=== PATIENT | female | born 1955 ===

== ENCOUNTER 2020-11-12 12:48 | Inpatient (IN) | payer MEDICAID, SELFPAY ==
[2020-11-12] VITALS (7 sets, daily range): BP systolic 117–155; BP diastolic 48–84; PULSE 72–108; RESP 17–20; TEMP 36.6–37.2; O2SAT 94–100; BMI 64.5
--- NOTE | 2020-11-12 16:06 | XR_ITS ---
EXAMINATION: XR CHEST CLINICAL INFORMATION: Cough COMPARISON: CT scan of January 20, 2018 TECHNIQUE: AP portable view of the chest was obtained. FINDINGS: No significant abnormality is noted involving the heart, lungs, mediastinum, bony thorax or soft tissues. XR/XR chest 1V IMPRESSION: No acute disease.
--- NOTE | 2020-11-12 16:36 | ECG_ITS ---
Test Reason : FLU LIKE SYMPTOMS Blood Pressure : / mmHG Vent. Rate : 066 BPM Atrial Rate : 066 BPM P-R Int : 140 ms QRS Dur : 080 ms QT Int : 408 ms P-R-T Axes : 057 043 041 degrees QTc Int : 427 ms Normal sinus rhythm Normal ECG No previous ECGs available Referred By: Elizabeth Maynard Electronically Signed By:Cosme Brown
--- NOTE | 2020-11-12 16:49 | ED_ITS ---
HPI - URI/Sore Throat General Chief Complaint: Upper Respiratory Symptoms Stated Complaint: flu symptoms Time Seen by Provider: 11/12/20 15:48 Source: patient Mode of arrival: ambulatory History of Present Illness HPI Narrative: 65-year-old female with a past medical history of asthma non compliant with medications presenting to the ED complaining of productive cough, worsening SOB, wheezing, generalized fatigue, and chills x a few weeks worsening over the past 3 days. Reports subjective fever and chest discomfort. Denies recent travel, LE edema, history of blood cough, abdominal pain, nausea/vomiting MD elicited complaint: cough Related Data Allergies Allergy/AdvReac Type Severity Reaction Status Date / Time No Known Allergies Allergy Unverified 07/21/20 16:27 [No Known Allergies*] Review of Systems Review of Systems: Constitutional: No Weight loss, +Subj Fever, + Chills, No Night Sweats, + Fatigue, No Malaise Cardiovascular: + Chest Pain, + SOB, + Dyspnea on Exertion, No Orthopnea, No Edema, No Palpitations Respiratory: + Cough, + Sputum, + Wheezing, No Smoke Exposure, + Dyspnea Gastrointestinal: No Nausea, No Vomiting, No Diarrhea, No Constipation, No Abdominal pain Genitourinary: No irregular bleeding, No Dysuria, No Urinary Frequency, No Hematuria Musculoskeletal: No joint pain, No Myalgias, No Joint Swelling Skin: No Skin Lesions, No rash Yes all other systems are reviewed and are negative PENDING SALE TO [facility] Past Medical History Attestation statement: The following information was validated with the patient. Medical History (Updated 11/12/20 @ 20:32 by BRANDY Roblero) Patient denies significant medical history Social History Social History Advance Directives: No Advance Directives Information Provided: No Physical Exam Vital Signs: Vital Signs: Last Vital Signs Temp 99 F 11/12/20 19:41 Pulse 86 11/12/20 20:54 Resp 20 11/12/20 19:41 BP 144/73 H 11/12/20 19:41 Pulse Ox 98 11/12/20 19:41 Body Mass Index 64.5 Const: General: cooperative and healthy appearing Orientation/consciousness: patient oriented x3 Limitations: no limitations HENMT: Head: Yes normal to inspection Ears: hearing grossly normal bilaterally General nose exam: Normal external nose present Face and sinus: Yes normal facial exam Eyes: General: appearance normal, both eyes and all related structures EOM: EOMs intact bilaterally Neck: Neck: Yes normal visual inspection Resp: Effort & Inspection: normal respiratory effort Auscultation: wheezes expiratory wheezes, inspiratory wheezes and throughout Cardio: Rate: regular rate Heart sounds: S1 normal heart sound present and S2 normal heart sound present GI: Inspection: Yes normal to inspection Palpation (GI): Soft to palpation, nontender, no guarding and not rigid Skin: Rashes: no rashes Wounds: no wounds Neuro: General: patient oriented x3 Gait exam (Neuro): Normal gait present Extrem: Other: No LE edema or calf tenderness General: Yes normal to inspection Course Course Course Narrative: * No leukocytosis * Chest x-ray unremarkable * 2030-labs otherwise unremarkable, troponin negative. COVID-19/influenza/RSV negative. On re-evaluation patient is still with diffuse inspir atory/expiratory wheezing. Hourlong albuterol treatment ordered. Plan for admission for further management MDM - URI/Sore Throat MDM Narrative Medical decision making narrative: 65-year-old female with a past medical history of asthma non compliant with medications presenting to the ED complaining of productive cough, worsening SOB, wheezing, generalized fatigue, and chills x a few weeks worsening over the past 3 days. On exam VSS, nontoxic appearing, diffuse inspiratory and expiratory wheezes throughout, no LE edema or calf tenderness. Concern for asthma exacerbation vs viral syndrome/COVID-19 vs pneumonia. Lower concern for CHF/ACS or PE Plan: EKG, labs, CXR, DuoNeb, Decadron, magnesium, re-evaluate Lab Data Result diagrams: 11/12/20 19:33 11/12/20 19:33 Labs: Lab Results 11/12/20 11/12/20 11/12/20 Range/Units 19:33 19:33 19:33 WBC 10.5 (4.8-10.8) X10*3/uL RBC 4.03 L (4.20-5.50) X10*6/uL Hgb 12.1 (12.0-16.0) g/dl Hct 36.2 L (37-47) % MCV 89.8 (80-98) fL MCH 30.0 (27.0-33.0) pg MCHC 33.4 (31.0-35.0) g/dl RDW 11.9 (11.0-16.0) % Plt Count 391 (160-400) X10*3/uL MPV 10.6 (9.4-12.3) fL Immature Gran % (Auto) 0.3 (0.0-0.4) % Neut % (Auto) 48.2 (45-73) % Lymph % (Auto) 39.8 (20-40) % [place] % (Auto) 7.8 (2-11) % Eos % (Auto) 3.3 (0-4) % Baso % (Auto) 0.6 (0-2) % Lymph # (Auto) 4.2 (1.2-4.9) X10*3/uL [place] # (Auto) 0.8 (0.1-1.2) X10*3/uL Eos # (Auto) 0.3 (0.0-0.4) X10*3/uL Baso # (Auto) 0.1 (0.0-0.2) X10*3/uL Abs Immat Gran (auto) 0.03 (0.00-0.03) X10*3/uL Absolute Neuts (auto) 5.1 (2.0-8.3) X10*3/uL Absolute Nucleated RBC 0.000 (0.0-0.012) X10*3/uL Nucleated RBC % (auto) 0.0 (0.0-0.2) /100WBC Hold Blue Top Sodium 144 (135-145) mmol/L Potassium 4.2 (3.3-5.1) mmol/l Chloride 108 (96-108) mmol/L Carbon Dioxide 24 (22-29) mmol/L Anion Gap 16 (12-20) BUN 19 H (9-16) mg/dL Creatinine 0.79 (0.5-1.4) mg/dL Estim Creat Clear Calc 106.8 Estimated GFR > 60 Random Glucose 114 (60-115) mg/dL Calcium 9.2 (8.4-10.2) mg/dL Magnesium 2.1 (1.6-2.6) mg/dL Total Bilirubin < 0.2 (0.0-1.0) mg/dL Direct Bilirubin < 0.2 (0.0-0.5) mg/dL AST 19 (5-31) U/L ALT 12 (0-31) U/L Alkaline Phosphatase 61 (39-117) U/L Troponin I High Sens < 3.5 (<3.5-17.0) ng/L B-Natriuretic Peptide (<100) pg/mL Total Protein 7.3 (6.5-8.0) g/dL Albumin 4.2 (3.5-5.0) g/dL Coronavirus (PCR) (Negative) Influenza Type A (PCR) (Negative) Influenza Type B (PCR) (Negative) RSV RNA Qual (PCR) (Negative) 11/12/20 11/12/20 11/12/20 Range/Units 19:33 19:33 19:35 WBC (4.8-10.8) X10*3/uL RBC (4.20-5.50) X10*6/uL Hgb (12.0-16.0) g/dl Hct (37-47) % MCV (80-98) fL MCH (27.0-33.0) pg MCHC (31.0-35.0) g/dl RDW (11.0-16.0) % Plt Count (160-400) X10*3/uL MPV (9.4-12.3) fL Immature Gran % (Auto) (0.0-0.4) % Neut % (Auto) (45-73) % Lymph % (Auto) (20-40) % [place] % (Auto) (2-11) % Eos % (Auto) (0-4) % Baso % (Auto) (0-2) % Lymph # (Auto) (1.2-4.9) X10*3/uL [place] # (Auto) (0.1-1.2) X10*3/uL Eos # (Auto) (0.0-0.4) X10*3/uL Baso # (Auto) (0.0-0.2) X10*3/uL Abs Immat Gran (auto) (0.00-0.03) X10*3/uL Absolute Neuts (auto) (2.0-8.3) X10*3/uL Absolute Nucleated RBC (0.0-0.012) X10*3/uL Nucleated RBC % (auto) (0.0-0.2) /100WBC Hold Blue Top SEE NOTE Sodium (135-145) mmol/L Potassium (3.3-5.1) mmol/l Chloride (96-108) mmol/L Carbon Dioxide (22-29) mmol/L Anion Gap (12-20) BUN (9-16) mg/dL Creatinine (0.5-1.4) mg/dL Estim Creat Clear Calc Estimated GFR Random Glucose (60-115) mg/dL Calcium (8.4-10.2) mg/dL Magnesium (1.6-2.6) mg/dL Total Bilirubin (0.0-1.0) mg/dL Direct Bilirubin (0.0-0.5) mg/dL AST (5-31) U/L ALT (0-31) U/L Alkaline Phosphatase (39-117) U/L Troponin I High Sens (<3.5-17.0) ng/L B-Natriuretic Peptide 43 (<100) pg/mL Total Protein (6.5-8.0) g/dL Albumin (3.5-5.0) g/dL Coronavirus (PCR) NEGATIVE (Negative) Influenza Type A (PCR) NEGATIVE (Negative) Influenza Type B (PCR) NEGATIVE (Negative) RSV RNA Qual (PCR) NEGATIVE (Negative) Discharge Plan Discharge Clinical Impression: Asthma Qualifiers: Asthma severity: unspecified severity Asthma persistence: unspecified Asthma complication type: unspecified Qualified Code(s): J45.909 - Unspecified asthma, uncomplicated Patient Disposition: Admitted As Inpatient
[2020-11-12] MEDS: dexAMETHasone sod phosphate 4 MG/ML VIAL 6 MG IVPUSH (19:38)
[2020-11-12] MEDS: Magnesium Sulfate/H2O 2 GM/50 ML PIGGYBACK IV (19:38)
[2020-11-12 19:42] LABS: MANUAL DIFF FLAG NO
[2020-11-12 19:44] LABS: Basophils Absolute Auto 0.1 X10*3/uL (0.0-0.2); Basophils Percent Auto 0.6 % (0-2); Eosinophils Absolute Auto 0.3 X10*3/uL (0.0-0.4); Eosinophils Percent Auto 3.3 % (0-4); Hematocrit 36.2 % (37-47); Hemoglobin 12.1 g/dl (12.0-16.0); Imm Gran Abs Auto 0.03 X10*3/uL (0.00-0.03); Imm Gran Pct Auto 0.3 % (0.0-0.4); Lymphocytes Absolute Auto 4.2 X10*3/uL (1.2-4.9); Lymphocytes Percent Auto 39.8 % (20-40); Mean Corpuscular HGB Conc 33.4 g/dl (31.0-35.0); Mean Corpuscular Volume 89.8 fL (80-98); Mean Platelet Volume 10.6 fL (9.4-12.3); Monocytes Absolute Auto 0.8 X10*3/uL (0.1-1.2); Monocytes Percent Auto 7.8 % (2-11); Neutrophils Absolute Auto 5.1 X10*3/uL (2.0-8.3); Neutrophils Percent Auto 48.2 % (45-73); Platelet Count 391 X10*3/uL (160-400); Red Blood Count 4.03 X10*6/uL (4.20-5.50); Red Cell Distribution Width 11.9 % (11.0-16.0); White Blood Count 10.5 X10*3/uL (4.8-10.8)
[2020-11-12] MEDS: Albuterol/Iprat 2.5/0.5MG 3 ML AMPUL.NEB INHALE ×2 (19:48→20:54)
[2020-11-12 20:10] LABS: Alanine Aminotransferase 12 U/L (0-31); Albumin Level 4.2 g/dL (3.5-5.0); Alkaline Phosphatase 61 U/L (39-117); Anion Gap 16 (12-20); Aspartate Amino Transferase 19 U/L (5-31); Bilirubin Direct < 0.2 mg/dL (0.0-0.5); Bilirubin Total < 0.2 mg/dL (0.0-1.0); Blood Urea Nitrogen 19 mg/dL (9-16); Calcium 9.2 mg/dL (8.4-10.2); Carbon Dioxide 24 mmol/L (22-29); Chloride 108 mmol/L (96-108); Creatinine Clr Calc Pharmacy 106.8; Estimated Glomerular Filt Rate > 60; Glucose Random 114 mg/dL (60-115); Magnesium 2.1 mg/dL (1.6-2.6); Potassium 4.2 mmol/l (3.3-5.1); Sodium 144 mmol/L (135-145); Total Protein 7.3 g/dL (6.5-8.0)
[2020-11-12 20:11] LABS: B Type Natriuretic Peptide 43 pg/mL (<100)
[2020-11-12 20:22] LABS: Influenza A PCR NEGATIVE (Negative); Influenza B PCR NEGATIVE (Negative); Resp Syncy Virus RNA Qual PCR NEGATIVE (Negative); SARS COV2 PCR INHOUSE NEGATIVE (Negative)
[2020-11-12 20:29] LABS: Troponin-I High Sensitivity < 3.5 ng/L (<3.5-17.0)
[2020-11-12] MEDS: Albuterol Sulfate (0.083%) 2.5 MG/3 ML VIAL.NEB 10 MG INHALE (20:54)
--- NOTE | 2020-11-12 21:29 | PC.NURSE ---
UNABLE TO OBTAIN MEDICATION HX ATT, PT'S PHARMACY IS CLOSED, NO ELECTRONIC RECENT MED REC, PT HAS LIST AT HOME BUT LIVES ALONE.
--- NOTE | 2020-11-12 21:34 | PM.IMHP ---
History of Present Illness Date of Service: 11/12/20 Chief Complaint: SOB This is a 65-year-old female with past medical history of COPD/asthma, HLD, chronic sinusitis, who presents to the hospital with complaints of shortness of breath, worsen congestion and wheezing. Patient reports the for the past 3 days she has been progressively more short of breath, she does not use inhalers regularly and run out. She denies any fever but has chills. She has no sputum production. She has chronic generalized abdominal pain, some nausea, no vomiting. She denies any constipation at this time but sometimes has diarrhea. Has midsternal chest pain that is worse with coughing. She denies any pressure, nonradiating of the chest pain. No lower extremity edema. No urinary symptoms. On arrival to the ED, pt HDS sating 98% on RA Labs on arrival show BC 10.5, Hgb 12.1, Na of 144, K+ 4.2, RVP including COVID negative CXR negative for acute disease Pt received mag, solumedrol and breathing treatments but remains wheezy and dyspneic and therefore will be admitted for further management Review of Systems Review of Systems: Yes all other systems are reviewed and are negative [facility] Medical History (Updated 11/12/20 @ 22:42 by Monica Garber MD) Chronic sinusitis HLD (hyperlipidemia) Patient denies significant medical history Social History Advance Directives: No Advance Directives Information Provided: No Meds Allergies Allergy/AdvReac Type Severity Reaction Status Date / Time No Known Allergies Allergy Unverified 07/21/20 16:27 [No Known Allergies*] Physical Exam Vital Signs and Narrative: Vital Signs: Last Vital Signs Temp 99 F 11/12/20 19:41 Pulse 86 11/12/20 20:54 Resp 20 11/12/20 19:41 BP 144/73 H 11/12/20 19:41 Pulse Ox 98 11/12/20 19:41 Body Mass Index 64.5 Const: General: cooperative and no acute distress Orientation/consciousness: patient oriented x3 Eyes: General: appearance normal, both eyes and all related structures Resp: Effort & Inspection: normal respiratory effort and able to speak in complete sentences Auscultation: wheezes Cardio: Rate: regular rate Rhythm: regular rhythm GI: Palpation (GI): Soft to palpation Auscultation: normal bowel sounds Skin: General skin exam: no rashes or lesions noted Neuro: General: patient oriented x3 Cognition (Neuro): normal cognition Extrem: General: Yes normal to inspection and Yes no pedal edema Results Labs CBC and Chem 7: 11/12/20 19:33 11/12/20 19:33 Labs: Laboratory Results - last 24 hr 11/12/20 11/12/20 11/12/20 19:33 19:33 19:33 MCV 89.8 MCH 30.0 MCHC 33.4 RDW 11.9 Plt Count 391 MPV 10.6 Immature Gran % (Auto) 0.3 Neut % (Auto) 48.2 Lymph % (Auto) 39.8 [place] % (Auto) 7.8 Eos % (Auto) 3.3 Baso % (Auto) 0.6 Lymph # (Auto) 4.2 [place] # (Auto) 0.8 Eos # (Auto) 0.3 Baso # (Auto) 0.1 Abs Immat Gran (auto) 0.03 Absolute Neuts (auto) 5.1 Absolute Nucleated RBC 0.000 Nucleated RBC % (auto) 0.0 Hold Blue Top Anion Gap 16 Estim Creat Clear Calc 106.8 Estimated GFR > 60 Random Glucose 114 Calcium 9.2 Magnesium 2.1 Total Bilirubin < 0.2 Direct Bilirubin < 0.2 AST 19 ALT 12 Alkaline Phosphatase 61 Troponin I High Sens < 3.5 B-Natriuretic Peptide Total Protein 7.3 Albumin 4.2 Coronavirus (PCR) Influenza Type A (PCR) Influenza Type B (PCR) RSV RNA Qual (PCR) 11/12/20 11/12/20 11/12/20 19:33 19:33 19:35 MCV MCH MCHC RDW Plt Count MPV Immature Gran % (Auto) Neut % (Auto) Lymph % (Auto) [place] % (Auto) Eos % (Auto) Baso % (Auto) Lymph # (Auto) [place] # (Auto) Eos # (Auto) Baso # (Auto) Abs Immat Gran (auto) Absolute Neuts (auto) Absolute Nucleated RBC Nucleated RBC % (auto) Hold Blue Top SEE NOTE Anion Gap Estim Creat Clear Calc Estimated GFR Random Glucose Calcium Magnesium Total Bilirubin Direct Bilirubin AST ALT Alkaline Phosphatase Troponin I High Sens B-Natriuretic Peptide 43 Total Protein Albumin Coronavirus (PCR) NEGATIVE Influenza Type A (PCR) NEGATIVE Influenza Type B (PCR) NEGATIVE RSV RNA Qual (PCR) NEGATIVE Imaging Radiologist's Impressions: Impressions Chest X-Ray 11/12/20 16:06 IMPRESSION: No acute disease. Assessment and Plan (1) Asthma exacerbation: Qualifiers: Asthma severity: mild Asthma persistence: intermittent Qualified Code(s): J45.21 - Mild intermittent asthma with (acute) exacerbation Status: Acute (2) Chronic sinusitis: Qualifiers: Sinusitis location: unspecified location Qualified Code(s): J32.9 - Chronic sinusitis, unspecified Status: Acute This is a 65-year-old female with past medical history of asthma COPD who presents to the hospital with complaints of shortness of breath, increased wheezing, and cough. # asthma exacerbation - received Mag, 1 hour breathing treatment, Solu-Medrol, with no relief of her symptoms - has no hypoxia, afebrile, no leukocytosis, chest x-ray negative, COVID-19 negative Plan: - will start her on Solu-Medrol 40 IV b.i.d., DuoNeb p.r.n./scheduled q.i.d., - patient is also long-term smoker will start her on azithromycin for possible underlying COPD - monitor respiratory status # chronic sinusitis - reports increased congestion - will start her on Flonase nasal spray DVT prophylaxis: Lovenox
[2020-11-12] MEDS: Enoxaparin Sodium 40 MG/0.4 ML SYRINGE SUBCUT (23:16)
[2020-11-12] MEDS: Azithromycin 500 MG TABLET PO (23:16)
[2020-11-13] VITALS (7 sets, daily range): BP systolic 114–138; BP diastolic 66–70; PULSE 99–105; RESP 16–20; O2SAT 94–97
[2020-11-13] MEDS: 0.9 % Sodium Chloride Flush 3 ML SYRINGE IVFLUSH ×3 (00:12→17:19)
[2020-11-13 05:06] LABS: Basophils Percent Auto 0.1 % (0-2); Hematocrit 34.3 % (37-47); Hemoglobin 11.3 g/dl (12.0-16.0); Imm Gran Abs Auto 0.05 X10*3/uL (0.00-0.03); Imm Gran Pct Auto 0.4 % (0.0-0.4); Lymphocytes Absolute Auto 1.1 X10*3/uL (1.2-4.9); Lymphocytes Percent Auto 7.9 % (20-40); MANUAL DIFF FLAG SCAN; Mean Corpuscular HGB Conc 32.9 g/dl (31.0-35.0); Mean Corpuscular Hemoglobin 29.9 pg (27.0-33.0); Mean Corpuscular Volume 90.7 fL (80-98); Mean Platelet Volume 10.6 fL (9.4-12.3); Monocytes Absolute Auto 0.1 X10*3/uL (0.1-1.2); Monocytes Percent Auto 0.7 % (2-11); Neutrophils Absolute Auto 12.3 X10*3/uL (2.0-8.3); Neutrophils Percent Auto 90.9 % (45-73); Platelet Count 372 X10*3/uL (160-400); Red Blood Count 3.78 X10*6/uL (4.20-5.50); Red Cell Distribution Width 11.9 % (11.0-16.0); SCAN SMEAR FLAG 1; White Blood Count 13.5 X10*3/uL (4.8-10.8)
[2020-11-13 05:13] LABS: SLIDE REVIEW VERIFIED
[2020-11-13 05:33] LABS: Anion Gap 23 (12-20); Blood Urea Nitrogen 16 mg/dL (9-16); Calcium 9.3 mg/dL (8.4-10.2); Carbon Dioxide 17 mmol/L (22-29); Chloride 108 mmol/L (96-108); Creatinine Clr Calc Pharmacy 102.9; Estimated Glomerular Filt Rate > 60; Glucose Random 201 mg/dL (60-115); Potassium 3.5 mmol/l (3.3-5.1); Sodium 144 mmol/L (135-145)
[2020-11-13] MEDS: Albuterol/Iprat 2.5/0.5MG 3 ML AMPUL.NEB INHALE ×4 (07:33→19:42)
--- NOTE | 2020-11-13 10:21 | PC.NURSE ---
pt tolerating po, amb oob with no distress, aox4 waiting on bed assignment
--- NOTE | 2020-11-13 15:13 | HO.PM.IMPN ---
Subjective Subjective Date of Service: 11/14/20 Interval History: Patient being followed for COPD/asthma exacerbation, patient feels better since admission still complaining of shortness of breath, denies fever chills no other acute issues overnight. Review of Systems General no headache no dizziness no fever chills. CVS no chest pain, no palpitation. Respiratory shortness of breath, chest tightness Gastrointestinal no nausea, no vomiting, no abdominal pain this a.m. Physical Exam Vital Signs: Vital Signs: Last Vital Signs Temp 97.9 F 11/12/20 21:37 Pulse 99 11/13/20 12:34 Resp 20 11/13/20 12:34 BP 114/66 11/13/20 12:34 Pulse Ox 94 11/13/20 12:34 Body Mass Index 64.5 Const: Other: General patient resting comfortably in no acute distress. Neck is supple no JVD. CVS regular rate rhythm, Respiratory lungs bilateral expiratory rhonchi, no respiratory distress Gastrointestinal abdomen soft, nontender, bowel sounds audible, no rigidity. Extremities no clubbing cyanosis or edema. Neuro nonfocal Skin no rash Objective Data Current Medications Generic Name Dose Route Start Last Admin Trade Name Freq PRN Reason Stop Dose Admin Acetaminophen 650 mg 11/12/20 22:34 Acetaminophen 325 Mg Tablet PO Q6H PRN Pain, Mild (Pain Scale 1-3) Albuterol/Ipratropium 3 ml 11/13/20 08:00 11/13/20 11:39 Albuterol/Iprat 2.5/0.5mg 3 Ml Ampul.Neb INHALE 3 ml RQ4H WHILE AWAKE KELY Administration Albuterol/Ipratropium 3 ml 11/12/20 22:34 Albuterol/Iprat 2.5/0.5mg 3 Ml Ampul.Neb INHALE RQ4H PRN Shortness of Breath/Wheezing Azithromycin 500 mg 11/12/20 22:34 11/12/20 23:16 Azithromycin 500 Mg Tablet PO 500 mg Q24H KELY Administration Docusate Sodium 100 mg 11/12/20 22:34 Docusate Sodium 100 Mg Capsule PO DAILY PRN Constipation Enoxaparin Sodium 40 mg 11/12/20 22:34 11/12/20 23:16 Enoxaparin Sodium 40 Mg/0.4 Ml Syringe SUBCUT 40 mg Q24H KELY Administration Methylprednisolone Sodium Succinate 40 mg 11/12/20 22:34 11/13/20 10:30 Methylprednisolone Sod Succ/Pf 40 Mg/Ml Vial IVPUSH 40 mg Q12H KELY Administration Ondansetron HCl 4 mg 11/12/20 22:34 Ondansetron Hcl 4 Mg/2 Ml Vial IVPUSH Q8H PRN Nausea and Vomiting Sodium Chloride 3 ml 11/13/20 00:00 11/13/20 09:21 0.9 % Sodium Chloride Flush 3 Ml Syringe IVFLUSH 3 ml QSHIFT KELY Administration Labs CBC & Chem 7: 11/13/20 04:52 11/14/20 06:22 Assessment and Plan (1) Asthma exacerbation: Status: Acute (2) Chronic sinusitis: Status: Acute Assessment and Plan: This is a 65-year-old female with past medical history of asthma/ COPD who presents to the hospital with complaints of shortness of breath, increased wheezing, and cough. # asthma exacerbation - shortness of breath improving since admission,s/p Mag, 1 hour breathing treatment and iv solumedrol in ER no hypoxia finger oximetry 94% on room air, no fever, no leukocytosis, chest x-ray negative, COVID-19 negative will cont. Solu-Medrol 40 IV b.i.d., DuoNeb p.r.n./scheduled q.i.d.,and iv azithromycin Patient is a former smoker stop smoking 2 years ago, will monitor respiratory status closely. Leukocytosis likely due to steroid, anion gap metabolic acidosis uncertain etiology blood sugars slightly elevated otherwise normal kidney function, repeat labs and if remains above normal will do further testing including lactic acid Patient not on nebulizer treatment at home, also says she is not using albuterol MDI. # chronic sinusitis - reports increased congestion, continue Flonase nasal spray DVT prophylaxis: Lovenox
--- NOTE | 2020-11-13 20:42 | PC.NURSE ---
per hospitalist plan to be d/c in am after reeval by day team that admitted patient. charge account authorizer aware.
[2020-11-13] MEDS: Azithromycin 500 MG TABLET PO (21:35)
[2020-11-13] MEDS: Enoxaparin Sodium 40 MG/0.4 ML SYRINGE SUBCUT (21:37)
[2020-11-14] MEDS: 0.9 % Sodium Chloride Flush 3 ML SYRINGE IVFLUSH ×2 (00:35→10:14)
[2020-11-14 06:00] VITALS: BP 135/67; PULSE 90; RESP 18; TEMP 37; O2SAT 100
[2020-11-14 07:36] LABS: Anion Gap 14 (12-20); Blood Urea Nitrogen 28 mg/dL (9-16); Calcium 9.7 mg/dL (8.4-10.2); Carbon Dioxide 23 mmol/L (22-29); Chloride 109 mmol/L (96-108); Creatinine Clr Calc Pharmacy 115.6; Estimated Glomerular Filt Rate > 60; Glucose Random 155 mg/dL (60-115); Potassium 4.7 mmol/l (3.3-5.1); Sodium 141 mmol/L (135-145)
[2020-11-14 07:59] VITALS: BP 136/80; PULSE 84; RESP 18; O2SAT 98
[2020-11-14] MEDS: Albuterol/Iprat 2.5/0.5MG 3 ML AMPUL.NEB INHALE (08:19)
[2020-11-14 08:20] VITALS: PULSE 88; O2SAT 95
--- NOTE | 2020-11-14 12:46 | MHC.CM.PN ---
Met with patient and draw tender in regards to discharge planning. Patient lives alone, ambulates with a cane and has a SHIP ERECTOR. Patient does not know the name of the agency for her SHIP ERECTOR but knows its not [facility]. PCP verified as Dr Farah at [facility]. Patient is requesting referral to [facility] to help with her medication management. Dr Hutchison aware and agreeable. Patient's daughter will transport her home. Continue to monitor for d/c needs.
--- NOTE | 2020-11-14 13:13 | P.F2F_ITS ---
Service Date Service Date: 11/14/20 Encounter Date of encounter: 11/14/20 Reasons for Services Signs and symptoms assessed: Shortness of breath/dyspnea on exertion new to the updraft treatment Reason for nursing home: medication management Homebound: Leaving the home is medically contraindicated at this time without the asist of a device and/or another person due th the listed conditions above and below. Reason homebound: shortness of breath with minimal effort and weakness related to hospital stay Certification: Based on the above findings, I certify that this patient is confined to the home and needs intermittent nursing home care, physical therapy and/or speech therapy, or continues to need occupational therapy. The patient is under my care, and I have initiated the establishment of the plan of care. The patient will be followed by a physician who will periodically review the plan of care.
--- NOTE | 2020-11-14 14:18 | P.DS_ITS ---
DS: Providers Provider Date of Service: 11/14/20 Date of admission: 11/12/20 21:11 Primary care physician: Unknown Physician DS: Diagnosis Discharge Diagnosis (1) Asthma exacerbation: Status: Acute (2) Chronic sinusitis: Status: Acute DS: Medications Discharge Medications Home Medications: Home Medications Medication Instructions Recorded Confirmed clonazepam 0.5 mg PO DAILY 11/14/20 11/14/20 eszopiclone 3 mg PO BEDTIME 11/14/20 11/14/20 melatonin 5 mg PO BEDTIME 11/14/20 11/14/20 olanzapine 15 mg PO BEDTIME 11/14/20 11/14/20 Previous Rx's Medication Instructions Recorded albuterol sulfate 2 inh INHALATION Q4-6H PRN #1 ea 11/14/20 azithromycin 500 mg PO Q24H #3 tab 11/14/20 fluticasone furoate-vilanterol 1 inh INHALATION DAILY #1 ea 11/14/20 [Breo Ellipta] prednisone 20 mg PO DAILY #5 tab 11/14/20 DS: Summary Hospital Course Hospital Course: History of presenting illness 65-year-old female with past medical history of COPD/asthma, HLD, chronic sinusitis, who presents to the hospital with complaints of shortness of breath, worsen congestion and wheezing. Patient reports the for the past 3 days she has been progressively more short of breath, she does not use inhalers regularly and run out. She denies any fever but has chills. She has no sputum production. She has chronic generalized abdominal pain, some nausea, no vomiting. She denies any constipation at this time but sometimes has diarrhea. Has midsternal chest pain that is worse with coughing. She denies any pressure, nonradiating of the chest pain. No lower extremity edema. No urinary symptoms. On arrival to the ED, pt HDS sating 98% on RA Labs on arrival show BC 10.5, Hgb 12.1, Na of 144, K+ 4.2, RVP including COVID negative CXR negative for acute disease Hospital course 65-year-old female with past medical history of asthma/ COPD who presents to the hospital with complaints of shortness of breath, increased wheezing, and cough. # asthma /COPD overlap syndrome with exacerbation Patient's symptoms of shortness of breath wheeze and nasal congestion imp roved patient was treated with IV steroids schedule updraft treatment her oxygenation remains stable 94% on room air patient had no fevers, no leukocytosis chest x-ray was negative as well as COVID-19 was negative since patient is doing significantly better she is being discharged home on 5 more days of by mouth prednisone 20 mg daily, Breo, azithromycin for 3 more days and albuterol MDI if patient does not respond to above treatment than nebulizer can be arranged by primary care physician # nasal congestion question chronic sinusitis Advised to use nasal saline and steam inhalation and if not better consider Flonase spray Time Spent with Patient Time attestation: Total time spent providing and/or coordinating discharge services: Discharge coordination time: Greater than 30 minutes Physical Exam Vital Signs: Vital Signs: Last Vital Signs Temp 98.6 F 11/14/20 06:00 Pulse 88 11/14/20 08:20 Resp 18 11/14/20 07:59 BP 136/80 11/14/20 07:59 Pulse Ox 98 11/14/20 07:59 Body Mass Index 64.5 General patient resting comfortably in no acute distress. Face no facial tenderness on maxillary sinus, no swelling Neck is supple no JVD. CVS regular rate rhythm, Respiratory few expiratory rhonchi, good air movement, no respiratory distress Gastrointestinal abdomen soft, nontender, bowel sounds audible, no rigidity. Extremities no clubbing cyanosis or edema. Neuro nonfocal Skin no rash DS: Data Data Completed and Pending Labs on day of discharge: Laboratory Tests 11/12/20 11/12/20 11/12/20 19:33 19:33 19:33 WBC 10.5 RBC 4.03 L Hgb 12.1 Hct 36.2 L MCV 89.8 MCH 30.0 MCHC 33.4 RDW 11.9 Plt Count 391 MPV 10.6 Immature Gran % (Auto) 0.3 Neut % (Auto) 48.2 Lymph % (Auto) 39.8 [place] % (Auto) 7.8 Eos % (Auto) 3.3 Baso % (Auto) 0.6 Lymph # (Auto) 4.2 [place] # (Auto) 0.8 Eos # (Auto) 0.3 Baso # (Auto) 0.1 Abs Immat Gran (auto) 0.03 Absolute Neuts (auto) 5.1 Absolute Nucleated RBC 0.000 Nucleated RBC % (auto) 0.0 Smear Tech's Comments Hold Blue Top Sodium 144 Potassium 4.2 Chloride 108 Carbon Dioxide 24 Anion Gap 16 BUN 19 H Creatinine 0.79 Estim Creat Clear Calc 106.8 Estimated GFR > 60 Random Glucose 114 Calcium 9.2 Magnesium 2.1 Total Bilirubin < 0.2 Direct Bilirubin < 0.2 AST 19 ALT 12 Alkaline Phosphatase 61 Troponin I High Sens < 3.5 B-Natriuretic Peptide Total Protein 7.3 Albumin 4.2 Coronavirus (PCR) Influenza Type A (PCR) Influenza Type B (PCR) RSV RNA Qual (PCR) 11/12/20 11/12/20 11/12/20 19:33 19:33 19:35 WBC RBC Hgb Hct MCV MCH MCHC RDW Plt Count MPV Immature Gran % (Auto) Neut % (Auto) Lymph % (Auto) [place] % (Auto) Eos % (Auto) Baso % (Auto) Lymph # (Auto) [place] # (Auto) Eos # (Auto) Baso # (Auto) Abs Immat Gran (auto) Absolute Neuts (auto) Absolute Nucleated RBC Nucleated RBC % (auto) Smear Tech's Comments Hold Blue Top SEE NOTE Sodium Potassium Chloride Carbon Dioxide Anion Gap BUN Creatinine Estim Creat Clear Calc Estimated GFR Random Glucose Calcium Magnesium Total Bilirubin Direct Bilirubin AST ALT Alkaline Phosphatase Troponin I High Sens B-Natriuretic Peptide 43 Total Protein Albumin Coronavirus (PCR) NEGATIVE Influenza Type A (PCR) NEGATIVE Influenza Type B (PCR) NEGATIVE RSV RNA Qual (PCR) NEGATIVE 11/13/20 11/13/20 11/14/20 04:52 04:52 06:22 WBC 13.5 H RBC 3.78 L Hgb 11.3 L Hct 34.3 L MCV 90.7 MCH 29.9 MCHC 32.9 RDW 11.9 Plt Count 372 MPV 10.6 Immature Gran % (Auto) 0.4 Neut % (Auto) 90.9 H Lymph % (Auto) 7.9 L [place] % (Auto) 0.7 L Eos % (Auto) 0.0 Baso % (Auto) 0.1 Lymph # (Auto) 1.1 L [place] # (Auto) 0.1 Eos # (Auto) 0.0 Baso # (Auto) 0.0 Abs Immat Gran (auto) 0.05 H Absolute Neuts (auto) 12.3 H Absolute Nucleated RBC 0.000 Nucleated RBC % (auto) 0.0 Smear Tech's Comments VERIFIED Hold Blue Top Sodium 144 141 Potassium 3.5 4.7 D Chloride 108 109 H Carbon Dioxide 17 L 23 Anion Gap 23 H 14 BUN 16 28 H D Creatinine 0.82 0.73 Estim Creat Clear Calc 102.9 115.6 Estimated GFR > 60 > 60 Random Glucose 201 H D 155 H Calcium 9.3 9.7 Magnesium Total Bilirubin Direct Bilirubin AST ALT Alkaline Phosphatase Troponin I High Sens B-Natriuretic Peptide Total Protein Albumin Coronavirus (PCR) Influenza Type A (PCR) Influenza Type B (PCR) RSV RNA Qual (PCR) Discharge Plan Discharge Patient Disposition: Home, Self-Care Referrals: [facility] [Outside] Tori Farah MD [Physician] - Discharge Medications: New azithromycin 500 mg Tablet 500 mg PO Q24H Qty: 3 RF: 0 Breo Ellipta 100-25 mcg/dose blister with device 1 inh inhalation DAILY Qty: 1 RF: 0 prednisone 20 mg tablet 20 mg PO DAILY Qty: 5 RF: 0 albuterol sulfate 90 mcg/actuation aerosol powdr breath activated 2 inh inhalation Q4-6H PRN (Reason: shortness of breath) Qty: 1 RF: 0 Continued clonazepam 0.5 mg Tablet 0.5 mg PO DAILY RF: 0 olanzapine 15 mg Tablet 15 mg PO BEDTIME RF: 0 eszopiclone 3 mg Tablet 3 mg PO BEDTIME RF: 0 melatonin 5 mg Tablet 5 mg PO BEDTIME RF: 0 Discontinued ibuprofen 600 mg Tablet 600 mg PO TID RF: 0 Discharge Orders: Discharge Order (Routine); Ordered 11/14/20 Ordered By: Martin Hutchison Diet: regular diet Activity on Discharge: As tolerated Visit Report Forms: Patient Portal Discharge page Care Plan Goals: Avoid secondhand smoke /take all medications as prescribed Health Concerns: COPD Plan of Treatment: Outpatient follow-up with primary care physician
== END 2020-11-14 16:51 | disposition home or self-care (01) | DRG 140 ==
LOC: HO.ED 21:07 → HO.S3 11-14 09:00
PROVIDERS: Hospitalist; Physician Assistant; Admitting Provider Internal Medicine; Emergency Provider Emergency Medicine; PCP Internal Medicine; Visit Provider Internal Medicine
DX: J44.1 Chronic obstructive pulmonary disease with (acute) exacerbation (principal); J45.21 Mild intermittent asthma with (acute) exacerbation; E78.5 Hyperlipidemia, unspecified; J32.9 Chronic sinusitis, unspecified; Z91.14 Patient's other noncompliance with medication regimen; Z87.891 Personal history of nicotine dependence; Z20.828 Contact with and (suspected) exposure to other viral communicable diseases; Z79.51 Long term (current) use of inhaled steroids; Z79.899 Other long term (current) drug therapy
CPT/HCPCS: 0241U; 36415; 71045; 80048; 80076; 83735; 83880; 84484; 85025; 93005; 94640; 94644; 96365; 96366; 96375; 99285; J1100; J1650; J2920; J3475

== ENCOUNTER → 2021-07-05 10:21 | Outpatient (BNVA) | payer MEDICARE, MEDICAID, SELFPAY | PROVIDERS: PCP Internal Medicine; Visit Provider Internal Medicine Pulmonary Disease | DX: J44.9 Chronic obstructive pulmonary disease, unspecified (principal); R91.8 Other nonspecific abnormal finding of lung field | CPT/HCPCS: 99202 ==

== ENCOUNTER 2021-07-19 09:13 | Outpatient (REF) | payer MEDICARE, MEDICAID, SELFPAY ==
--- NOTE | ~2021-07-19 | CT_ITS ---
EXAMINATION: CT CHEST WITHOUT CONTRAST CLINICAL INFORMATION: Pulmonary nodules. COMPARISON: Chest x-ray 11/12/[address] chest without contrast 01/20/2018. TECHNIQUE: Multidetector volumetric CT imaging of the chest was done. Axial MIP volume rendering provided. Sagittal and coronal reformatted images were obtained. This CT examination was performed using dose optimization techniques as appropriate, variously including the following: *Automated exposure control *Adjustment of mA and/or kV according to patient size (this includes techniques or standardized protocols for targeted exams where dose is matched to indication/reason for exam; i.e. extremities or head) *Use of iterative reconstruction technique DLP: 161 mGy-cm FINDINGS: DATA PROCESSING CONSULTANT: The lungs are well-expanded and clear. LUNGS: The lungs are well-expanded and clear of acute process. There is a 3 mm nodule left upper lobe axial image /. This appears to be a new nodule. Previously seen left upper lobe nodule at the level of hilum is not visualized unless they are the same nodules but have changed position due to breathing. No additional nodules seen. Focal atelectatic changes are seen in the right middle lobe, lingula and anterior basal segment of right lower lobe. MEDIASTINUM: The thyroid lobes are asymmetrical but normal size. The central trachea and the bronchi are widely patent. The heart size and the great vessels are normal caliber. There are coronary artery calcifications. No pericardial effusion seen. No abnormal size mediastinal or hilar lymph nodes seen. PLEURA: There is no pleural effusion. No pleural mass or thickening. AXILLA: No abnormal axillary lymph nodes seen. UPPER ABDOMEN: Visualized liver, spleen, pancreas and bilateral adrenal glands are unremarkable. OSSEOUS STRUCTURES: No lytic or sclerotic process seen. Minimal ventral spondylosis mid and lower dorsal spine. CT/CT chest wo con IMPRESSION: Left upper lobe 3 mm nodule slightly at different level which could be secondary to different breathing pattern. No additional nodules. No acute process. Focal atelectatic changes as described above.
--- NOTE | 2021-07-19 11:06 | PFT_ITS ---
FLOWS: FEV1 of 79% of predicted at 1.63 L. FVC 77% of predicted at 2.08 L. FEV1 to FVC ratio of 0.78. No bronchodilator response. LUNG VOLUMES: Total lung capacity 90% at 4.04 L. Residual volume 104% at 1.97 L. Slow vital capacity 81% at 2.08 L. Expiratory reserve volume 13% at 0.09 L. Diffusion capacity is mildly decreased, diffusion capacity adjust to normal after correction for alveolar ventilation. In comparison to pulmonary function test form August of 2017, FEV1 has decreased by 0.29 L; FVC has decreased by 0.28 L; total lung capacity has increased by 0.30 L; residual volume, slow vital capacity, and expiratory reserve volume have been without significant changes; diffusion capacity has decreased by 3.13 mL/minute per mmHg. IMPRESSION: No obstructive or restrictive ventilatory defect. No bronchodilator response. Decreased expiratory reserve volume suggests extrathoracic restriction likely secondary to abdominal obesity. MD SUZAN Tabor/MODL / [id number]
== END 2021-07-19 09:14 | disposition home or self-care (01) ==
LOC: HO.CT 09:13
PROVIDERS: Visit Provider Internal Medicine Pulmonary Disease
DX: R91.8 Other nonspecific abnormal finding of lung field (principal); J44.9 Chronic obstructive pulmonary disease, unspecified
CPT/HCPCS: 71250; 94060; 94727; 94729

== ENCOUNTER → 2021-08-11 09:51 | Outpatient (BNVA) | payer MEDICARE, MEDICAID, SELFPAY | PROVIDERS: Visit Provider Internal Medicine Pulmonary Disease | DX: J44.9 Chronic obstructive pulmonary disease, unspecified (principal); R91.8 Other nonspecific abnormal finding of lung field | CPT/HCPCS: 99212 ==

== ENCOUNTER → 2021-09-14 10:20 | Outpatient (BNVA) | payer MEDICARE, MEDICAID, SELFPAY | PROVIDERS: PCP Internal Medicine; Visit Provider Internal Medicine Pulmonary Disease | DX: J44.9 Chronic obstructive pulmonary disease, unspecified (principal); R91.8 Other nonspecific abnormal finding of lung field | CPT/HCPCS: 99212 ==

== ENCOUNTER → 2021-10-19 13:22 | Outpatient (BNVA) | payer MEDICARE, MEDICAID, SELFPAY | PROVIDERS: PCP Internal Medicine; Visit Provider Internal Medicine Pulmonary Disease | DX: J44.9 Chronic obstructive pulmonary disease, unspecified (principal); R91.8 Other nonspecific abnormal finding of lung field | CPT/HCPCS: 99212 ==

== ENCOUNTER 2021-10-23 09:28 | Outpatient (REF) | payer MEDICARE, MEDICAID, SELFPAY ==
--- NOTE | ~2021-10-23 | XR_ITS ---
EXAMINATION: XR CHEST 2 VIEW CLINICAL INFORMATION: COPD COMPARISON: 11/12/2020 TECHNIQUE: PA and lateral views of the chest obtained. FINDINGS: Linear atelectasis or scar is evident in the left upper lobe. Otherwise, the lungs are clear. There are no pleural effusions. The cardiomediastinal silhouette is normal. XR/XR chest 2V IMPRESSION: No acute cardiopulmonary disease.
== END 2021-10-23 09:29 | disposition home or self-care (01) ==
LOC: HO.XRAY 09:28
PROVIDERS: Visit Provider Internal Medicine Pulmonary Disease
DX: J44.9 Chronic obstructive pulmonary disease, unspecified (principal); Z79.899 Other long term (current) drug therapy
CPT/HCPCS: 71046

== ENCOUNTER → 2021-12-01 13:37 | Outpatient (BNVA) | payer MEDICARE, MEDICAID, SELFPAY | PROVIDERS: PCP Internal Medicine; Visit Provider Internal Medicine Pulmonary Disease | DX: J44.9 Chronic obstructive pulmonary disease, unspecified (principal); J45.21 Mild intermittent asthma with (acute) exacerbation; R91.8 Other nonspecific abnormal finding of lung field | CPT/HCPCS: 99212 ==

== ENCOUNTER → 2021-12-20 10:56 | Outpatient (BNVA) | payer MEDICARE, MEDICAID, SELFPAY | PROVIDERS: PCP Internal Medicine; Visit Provider Internal Medicine Pulmonary Disease | DX: J44.9 Chronic obstructive pulmonary disease, unspecified (principal); J45.21 Mild intermittent asthma with (acute) exacerbation; R91.8 Other nonspecific abnormal finding of lung field | CPT/HCPCS: 99212 ==

== ENCOUNTER 2022-02-20 09:54 | Outpatient (REF) | payer MEDICARE, MEDICAID, SELFPAY ==
--- NOTE | ~2022-02-20 | US_ITS ---
EXAMINATION: US RETROPERITONEAL COMPLETE (RENAL) CLINICAL INFORMATION: Hematuria. COMPARISON: US retroperitoneal limited (renal only) 08/20/2019. TECHNIQUE: Real-time imaging of the kidneys and bladder. FINDINGS: RIGHT KIDNEY: 11.0 x 4.2 x 5.5 cm (SAG x AP x TRV). The kidney is normal in size, contour, and echogenicity. Renal cortical thickness is normal. No renal calculi or hydronephrosis. 1.1 cm simple appearing upper pole cyst. LEFT KIDNEY: 10.6 x 4.2 x 4.9 cm (SAG x AP x TRV). The kidney is normal in size, contour, and echogenicity. Renal cortical thickness is normal. No calculi or focal parenchymal lesions. No hydronephrosis. BLADDER: The bladder is only partially distended and therefore suboptimally evaluated. There is mild diffuse bladder wall thickening which although nonspecific is often times seen in this setting of an incompletely distended bladder. Bilateral ureteral jets are not demonstrated. Prevoid bladder volume is 84.5 mL. No appreciable post void bladder residual. US/US retroperitoneal comp IMPRESSION: -No renal calculi or hydronephrosis of either kidney.
== END 2022-02-20 09:55 | disposition home or self-care (01) ==
LOC: HO.US 09:54
PROVIDERS: Visit Provider Internal Medicine
DX: R31.9 Hematuria, unspecified (principal)
CPT/HCPCS: 76770

== ENCOUNTER → 2022-04-04 08:55 | Outpatient (BNVA) | payer MEDICARE, MEDICAID, SELFPAY | PROVIDERS: PCP Internal Medicine; Visit Provider Internal Medicine Pulmonary Disease | DX: J45.21 Mild intermittent asthma with (acute) exacerbation (principal); J44.9 Chronic obstructive pulmonary disease, unspecified; R91.8 Other nonspecific abnormal finding of lung field | CPT/HCPCS: 99212 ==

== ENCOUNTER 2022-05-15 08:54 | Outpatient (REF) | payer MEDICARE, MEDICAID, SELFPAY ==
--- NOTE | ~2022-05-15 | MM_ITS ---
EXAMINATION: MM SCREENING DIGITAL BREAST TOMOSYNTHESIS, BILATERAL CLINICAL INFORMATION: Screening. Asymptomatic. The lifetime risk of breast cancer based on the Tyrer-Cuzick Model is 3%. COMPARISON: Mammography: 12/18/2019, 08/13/2018 TECHNIQUE: Digital breast tomosynthesis is performed in both the craniocaudal and mediolateral oblique views along with computer-aided detection (CAD). Synthesized 2D images are generated from the tomosynthesis. FINDINGS: There are scattered areas of fibroglandular density (ACR BI-RADS breast composition Category b). There are no significant masses, abnormal calcifications, or other abnormalities. Parenchymal pattern is similar to prior studies. Incidental low left axillary tail node stable. Skin contours are smooth. MM/MM tomosynthesis screening BI IMPRESSION: No mammographic evidence of malignancy. ASSESSMENT: BI-RADS 1: Negative RECOMMENDATION: Routine annual mammography screening. This patient's information was entered into a reminder system with a target due date for their next mammogram.
--- NOTE | ~2022-05-15 | MM_ITS ---
EXAMINATION: BONE DENSITOMETRY CLINICAL INDICATION: Menopausal state. COMPARISON: None (current study represents initial baseline exam). TECHNIQUE: Using a 777 Davis DXA System (software version: 13.1) manufactured by [employer], dual-energy x-ray absorptiometry was performed of the lumbar spine and left hip. The images are of good technical quality. Summary results are attached. FINDINGS: AP SPINE L1-L3 (excluding L4): The data of L1-L4 has been changed to exclude the L4 vertebral body, because degenerative changes at this level may cause overestimation of lumbar spine density. BMD 1.188 g/cm2, Z-score 1.3, T-score 0.1, normal. LEFT FEMUR, NECK: BMD 0.790 g/cm2, Z-score -0.6, T-score -1.8, osteopenia. LEFT FEMUR, TOTAL: BMD 0.841 g/cm2, Z-score -0.4, T-score -1.3, osteopenia. IDENTIFIED RISK FACTORS: Early menopause, secondary osteoporosis. HISTORY OF FRACTURE: None listed. MEDICATIONS: Vitamin D. MM/XR DEXA axial skeleton IMPRESSION: 1. DIAGNOSIS: Osteopenia based on the lowest T-score value of -1.8 in the femoral neck applying World Health Organization criteria. 2. 10-YEAR FRACTURE RISK PREDICTION, FRAX: Major osteoporotic fracture (clinical spine, forearm, hip or shoulder) 5.3%. Hip fracture 0.7%. 3. Treatment Recommendations: NOF guidelines recommend consideration for treatment in postmenopausal women and men age 50 and older presenting with the following: -A hip or vertebral (clinical or morphometric) fracture. -T-score less than or equal to -2.5 at the femoral neck or spine after appropriate evaluation to exclude secondary causes. -Low bone mass at the hip or spine and a 10-year fracture probability by FRAX of greater than or equal to 3% for hip fracture or greater than or equal to 20% for major osteoporotic fracture based on the [place] adapted WHO algorithm. 4. Other Recommendations: All treatment decisions require clinical judgment and consideration of individual patient factors, including patient preferences, comorbidities, previous drug use, risk factors not captured in the FRAX model (e.g. frailty, falls, vitamin D deficiency, increased bone turnover, interval significant decline in bone density) and possible under or overestimation of fracture risk by FRAX. Additional medical evaluation for secondary cause of low bone mineral density may be appropriate. FUTURE SCAN RECOMMENDATION: People with diagnosed cases of osteoporosis or at high risk for fracture should have regular bone mineral density tests. For patients eligible for Medicare, routine testing is allowed once every 2 years. The testing frequency can be increased to one year for patients who have rapidly progressing disease, those who are receiving or discontinuing medical therapy to restore bone mass, or have additional risk factors.
== END 2022-05-15 08:55 | disposition home or self-care (01) ==
LOC: HO.MAMMO 08:54
PROVIDERS: PCP Internal Medicine; Visit Provider Internal Medicine
DX: Z12.31 Encounter for screening mammogram for malignant neoplasm of breast (principal); Z13.820 Encounter for screening for osteoporosis; Z78.0 Asymptomatic menopausal state; M85.80 Other specified disorders of bone density and structure, unspecified site
CPT/HCPCS: 77063; 77067; 77080

== ENCOUNTER → 2022-05-29 10:47 | Outpatient (BNVA) | payer MEDICARE, MEDICAID, SELFPAY | PROVIDERS: PCP Internal Medicine; Referring Provider Internal Medicine; Visit Provider Nurse Practitioner | DX: Z01.818 Encounter for other preprocedural examination (principal); R13.10 Dysphagia, unspecified; D12.6 Benign neoplasm of colon, unspecified; R10.10 Upper abdominal pain, unspecified | CPT/HCPCS: 99202; 99212 ==

== ENCOUNTER 2022-07-19 09:39 | Outpatient (REF) | payer MEDICARE, MEDICAID, SELFPAY ==
--- NOTE | ~2022-07-19 | US_ITS ---
EXAMINATION: US ABDOMEN COMPLETE CLINICAL INFORMATION: Z01.818 - Encounter for other preprocedural examination. Mid upper abdominal pain. COMPARISON: Renal ultrasound 02/20/2022, CT chest 07/19/2021. TECHNIQUE: Real-time imaging of the abdominal viscera. FINDINGS: PANCREAS: Normal in size and contour and echogenicity. No pancreatic ductal distention or retroperitoneal effusion. ABDOMINAL AORTA: The proximal, mid, and distal segments are normal in caliber. INFERIOR VENA CAVA: Visualized portions are normal. LIVER: Liver is within normal size and smooth in contour. Parenchymal is borderline increased in echogenicity which may suggest mild underlying hepatic steatosis. There is no focal hepatic parenchymal lesion or intrahepatic ductal dilatation. Color Doppler shows portal flow towards the liver. GALLBLADDER: There are circumferential high attenuation polypoid lesions projecting into the gallbladder lumen likely related to adenomyomatosis/cholesterolosis. There is likely dependent calculus as well. There is no gallbladder wall thickening or subserosal edema or pericholecystic fluid. No gallbladder dilatation. COMMON BILE DUCT: Common duct is increased in caliber, 10 mm. No visible ductal calculus or sludge. Distal common duct obscured by bowel gas and not completely imaged. RIGHT KIDNEY: Normal. No hydronephrosis. No renal calculi or focal parenchymal lesions. The kidney measures 10.8 cm in maximum dimension. LEFT KIDNEY: Normal. No hydronephrosis. No renal calculi or focal parenchymal lesions. The kidney measures 10.1 cm in maximum dimension. SPLEEN: Normal. The spleen measures 7.2 cm in maximum dimension. FREE FLUID: None. US/US abdomen complete IMPRESSION: -Abnormal gallbladder, likely combination of adenomyomatosis/cholesterolosis and probable calculi. No gallbladder wall thickening or pericholecystic fluid. -Enlarged common duct, 10 mm. No intrahepatic ductal dilatation. No visible ductal calculus or sludge. Distal duct obscured by bowel gas.
== END 2022-07-19 09:40 | disposition home or self-care (01) ==
LOC: HO.US 09:39
PROVIDERS: Visit Provider Nurse Practitioner
DX: Z01.818 Encounter for other preprocedural examination (principal); D12.6 Benign neoplasm of colon, unspecified; R13.10 Dysphagia, unspecified; R10.10 Upper abdominal pain, unspecified
CPT/HCPCS: 76700

== ENCOUNTER 2022-07-31 13:21 | Outpatient (REF) | payer MEDICARE, MEDICAID, SELFPAY ==
--- NOTE | ~2022-07-31 | CT_ITS ---
EXAMINATION: CT CHEST WITHOUT CONTRAST CLINICAL INFORMATION: Pulmonary nodules. COMPARISON: CT chest 07/19/2021. TECHNIQUE: Multidetector volumetric CT imaging of the chest was done. Axial MIP volume rendering provided. Sagittal and coronal reformatted images were obtained. This CT examination was performed using dose optimization techniques as appropriate, variously including the following: *Automated exposure control *Adjustment of mA and/or kV according to patient size (this includes techniques or standardized protocols for targeted exams where dose is matched to indication/reason for exam; i.e. extremities or head) *Use of iterative reconstruction technique DLP: 186 mGy-cm. FINDINGS: COUNTERINTELLIGENCE AGENT: Unremarkable. LUNGS: There is a 3 mm nodule left upper lobe axial image 198/6, stable. No additional nodules seen. There is new focal atelectasis in bilateral lower lobes, lingula and right middle lobe, similar to previous study but slightly prominent in both lower lobes compared to previous study. MEDIASTINUM: The thyroid lobes are symmetric and normal. The central trachea and the bronchi are widely patent. Heart size and the great vessels are normal caliber. No abnormal-sized mediastinal or hilar lymph nodes visualized. No pericardial effusion. CORONARY ARTERY CALCIFICATION: Mild coronary artery calcification seen. PLEURA: There is no pleural effusion. No pleural mass or thickening. AXILLA: Small shotty lymph nodes are seen in bilateral axilla. UPPER ABDOMEN: Visualized liver, spleen, pancreas and bilateral adrenal glands unremarkable. OSSEOUS STRUCTURES: No aggressive lytic or sclerotic process seen. CT/CT chest wo IV con IMPRESSION: 3 mm pulmonary nodule left upper lobe and bilateral atelectatic changes or scarring are stable compared to 07/19/2021. No new pulmonary nodule or consolidation. Fleischner guidelines were followed.
== END 2022-07-31 13:22 | disposition home or self-care (01) ==
LOC: HO.CT 13:21
PROVIDERS: PCP Internal Medicine; Visit Provider Internal Medicine Pulmonary Disease
DX: R91.8 Other nonspecific abnormal finding of lung field (principal)
CPT/HCPCS: 71250

== ENCOUNTER 2022-08-08 09:16 | Outpatient (REF) | payer MEDICARE, MEDICAID, SELFPAY ==
[2022-08-08 12:17] LABS: MANUAL DIFF FLAG NO
[2022-08-08 12:24] LABS: Basophils Absolute Auto 0.1 X10*3/uL (0.0-0.2); Basophils Percent Auto 0.6 % (0-2); Eosinophils Absolute Auto 0.2 X10*3/uL (0.0-0.4); Eosinophils Percent Auto 1.1 % (0-4); Hematocrit 36.1 % (37.0-47.0); Hemoglobin 12.1 g/dl (12.0-16.0); Imm Gran Abs Auto 0.05 X10*3/uL (0.00-0.03); Imm Gran Pct Auto 0.4 % (0.0-0.4); Lymphocytes Absolute Auto 3.8 X10*3/uL (1.2-4.9); Lymphocytes Percent Auto 27.6 % (20-40); Mean Corpuscular HGB Conc 33.5 g/dl (31.0-35.0); Mean Corpuscular Hemoglobin 30.2 pg (27.0-33.0); Mean Platelet Volume 10.2 fL (9.4-12.3); Monocytes Absolute Auto 0.8 X10*3/uL (0.1-1.2); Monocytes Percent Auto 5.9 % (2-11); Neutrophils Absolute Auto 8.8 x10*3/uL (2.0-8.3); Neutrophils Percent Auto 64.4 % (45-73); Platelet Count 396 X10*3/uL (160-400); Red Blood Count 4.01 X10*6/uL (4.20-5.50); Red Cell Distribution Width 12.9 % (11.0-16.0); White Blood Count 13.7 X10*3/uL (4.8-10.8)
[2022-08-08 12:44] LABS: Alanine Aminotransferase 7 U/L (0-31); Albumin Level 4.2 g/dL (3.5-5.0); Alkaline Phosphatase 57 U/L (39-117); Anion Gap 17 (12-20); Aspartate Amino Transferase 14 U/L (5-31); Bilirubin Total 0.5 mg/dL (0.0-1.0); Blood Urea Nitrogen 21 mg/dL (9-16); Calcium 9.6 mg/dL (8.4-10.2); Carbon Dioxide 26 mmol/L (22-29); Chloride 106 mmol/L (96-108); Estimated Glomerular Filt Rate 58; Glucose Random 134 mg/dL (60-115); Sodium 145 mmol/L (135-145); Total Protein 7.1 g/dL (6.5-8.0)
== END 2022-08-08 09:17 | disposition home or self-care (01) ==
LOC: HO.LAB 09:16
PROVIDERS: Absent Provider Nurse Practitioner; PCP Internal Medicine; Visit Provider Internal Medicine Pulmonary Disease
DX: R06.09 Other forms of dyspnea (principal); J44.9 Chronic obstructive pulmonary disease, unspecified; R91.8 Other nonspecific abnormal finding of lung field; K80.20 Calculus of gallbladder without cholecystitis without obstruction; R10.10 Upper abdominal pain, unspecified; R13.10 Dysphagia, unspecified; D12.6 Benign neoplasm of colon, unspecified; K21.9 Gastro-esophageal reflux disease without esophagitis
CPT/HCPCS: 36415; 80053; 85025; 99212

== ENCOUNTER → 2022-09-14 14:19 | Outpatient (REF) | payer MEDICARE, MEDICAID, SELFPAY ==
--- NOTE | 2022-09-14 14:22 | CA_ITS ---
Transthoracic Echocardiogram Patient (Last, First, Middle): Lauren Warner, Gender: Female Date of : 1955 Age: 67 Procedure Date: 09/14/2022 Procedure Type: Transthoracic Echocardiogram Location: OP Height: 157.48 cm Weight: 89.36 kg BSA: 1.90 m2 Heart Rate: 89 bpm BP: 110 / 72 mmHg Tool Trouble Shooter: SB Referring MD: Og Posey MD Symptoms: R06.09 - Other forms of dyspnea Study Quality: Adequate ECG Rhythm: Sinus Conclusions: - Normal left ventricular size and systolic function. There is mildly increased left ventricular wall thickness. The visually estimated ejection fraction is between 55-60%. - E/E prime ratio is between 8 and 15 consistent with indeterminate filling pressures. - Normal right ventricular cavity size and systolic function. - The left atrium is likely dilated. The right atrium is normal in size. - There is mild tricuspid valve regurgitation. The right ventricular systolic pressure is 39 mmHg. Normal right atrial pressure. Mild pulmonary hypertension is present. Findings Left Ventricle Normal left ventricular size and systolic function. There is mildly increased left ventricular wall thickness. The visually estimated ejection fraction is between 55-60%. There is no evidence of regional wall motion abnormalities. Abnormal diastolic function is noted. Spectral Doppler is indicative of a pseudonormal filling pattern. E/E prime ratio is between 8 and 15 consistent with indeterminate filling pressures. There is moderate septal asymmetric hypertrophy. Right Ventricle Normal right ventricular cavity size and systolic function. Atria The left atrium is likely dilated. The right atrium is normal in size. Aortic Valve Normal aortic valve structure and function. There is no aortic valve stenosis. There is no aortic valve regurgitation. Mitral Valve Normal mitral valve structure and function. There is no mitral valve regurgitation. There is no mitral valve stenosis. Pulmonic Valve The pulmonic valve is likely normal. Tricuspid Valve Normal tricuspid valve structure. There is mild tricuspid valve regurgitation. The right ventricular systolic pressure is 39 mmHg. Normal right atrial pressure. Mild pulmonary hypertension is present. Great Vessels All visible segments of the aorta are normal in size. The visualized portions of the pulmonary artery and branches are normal. Venous The inferior vena cava is normal in size and collapses greater than 50% with inspiration. Pericardium/Pleural There is no evidence of pericardial effusion. Prior Study Comparison No prior study available for comparison. Measurements 2D Linear Measurements IVSd: 0.97 0.6-0.9/0.6-1.0 cm LVIDd: 5.19 3.9-5.3/4.2-5.9 cm LVIDs: 3.71 2.0-3.6 cm LVPWd: 0.96 0.7-1.1 cm LA Diam: 3.80 2.7-3.8/3.0-4.0 cm LV Mass: 229.04 67-162/88-224 g LVOT Diam: 2.00 3.0+(-)1.3 cm 2D Systolic Function EF 4C: 51.60 >55% EF 2C: 50.80 >55% EF BiP: 50.10 >55% Mitral Valve MV Pk E: 0.69 MV PK A: 0.60 MV Decel Time: 163.00 E/A: 1.10 E'Lateral: 8.92 E'Medial: 4.90 E/E' Med: 14.20 E/E' Lat: 7.80 PHT: 48.00 MVA PHT: 4.58 Decel [place]: 4.26 Aortic Valve AoV Pk Ivan: 1.20 AoV Pk Grad: 6.00 LVOT LVOT Pk Ivan: 0.86 LVOT Mn Ivan: 0.55 LVOT VTI: 0.17 LVOT Pk Grad: 3.00 LVOT Mn Grad: 1.00 LVOT Diam: 2.00 LVOT Area: 3.14 Diastolic Function MV Pk E: 0.69 MV Pk A: 0.60 E/A: 1.10 E'Medial: 4.90 E/E' Med: 14.20 E' Laterial: 8.92 E/E' Lat: 7.80 Right Ventricle TAPSE (mm): 21.20 TVS' Ivan: 15.90 Tricuspid Valve TR Pk Ivan: 2.80 TR Pk Grad: 31.00 RA Press: 8.00 RVSP: 39.00 Great Vessels Aorta Sinus of Valsalva: 2.90 2.0-3.5 cm Ao Asc: 3.00 2.1-3.4 cm Pulmonary Veins Pulm Vein S/D 1.60 Pulmonary Valve PV Pk Ivan: 0.85 Peak PV Grad: 3.00 Updated in Other Vendor System with Status of Final Cosme Brown MD electronically signed on 09/15/2022 7:12:18 PM with status of Final
== END ==
LOC: HO.CARD 14:19
PROVIDERS: PCP Internal Medicine; Visit Provider Internal Medicine Pulmonary Disease
DX: R06.09 Other forms of dyspnea (principal)
CPT/HCPCS: 93306

== ENCOUNTER 2022-09-24 10:16 | Outpatient (REF) | payer MEDICARE, MEDICAID, SELFPAY ==
--- NOTE | ~2022-09-24 | FL_ITS ---
EXAMINATION: FL BARIUM SWALLOW CLINICAL INFORMATION: Encounter for other preprocedural exam COMPARISON: None TECHNIQUE: Barium swallow examination is performed using fluoroscopic evaluation in addition to multiple fluoroscopic spot views. The patient is imaged both upright and prone and using both thick and thin sulfate along with effervescent granules. Fluoroscopy time: 0.5 minutes DAP: 21 Gycm2 Images: 46 FINDINGS: The swallowing mechanism is normal. No aspiration or penetration. No retention. Normal esophageal motility. Mild gastroesophageal reflux. No hernia. No mass or stricture. Barium tablet passed freely into the stomach. FL/FL barium swallow IMPRESSION: Mild gastroesophageal reflux otherwise unremarkable exam.
== END 2022-09-24 10:17 | disposition home or self-care (01) ==
LOC: HO.XRAY 10:16
PROVIDERS: PCP Internal Medicine; Visit Provider Nurse Practitioner
DX: Z01.818 Encounter for other preprocedural examination (principal); R10.10 Upper abdominal pain, unspecified; D12.6 Benign neoplasm of colon, unspecified; R13.10 Dysphagia, unspecified
CPT/HCPCS: 74220

== ENCOUNTER 2022-10-04 18:23 | Emergency (ER) | payer MEDICARE, MEDICAID, SELFPAY ==
--- NOTE | ~2022-10-04 | XR_ITS ---
EXAMINATION: XR CHEST CLINICAL INFORMATION: Shortness of breath. COMPARISON: Chest radiograph 10/23/2021. CT chest 07/31/2022. TECHNIQUE: Frontal view of the chest was obtained. FINDINGS: Normal appearance of the cardiomediastinal silhouette. No focal airspace opacity, pleural effusion or pneumothorax. No acute osseous abnormalities. The visualized upper abdomen is within normal limits. XR/XR chest 1V IMPRESSION: No acute cardiopulmonary findings.
[2022-10-04 20:04] VITALS: BP 142/85; PULSE 87; RESP 20; TEMP 36; O2SAT 97; BMI 31.3
--- NOTE | 2022-10-04 20:08 | ECG_ITS ---
Test Reason : sob Blood Pressure : / mmHG Vent. Rate : 086 BPM Atrial Rate : 086 BPM P-R Int : 138 ms QRS Dur : 080 ms QT Int : 348 ms P-R-T Axes : 061 028 039 degrees QTc Int : 416 ms Sinus rhythm with Premature atrial complexes Nonspecific T wave abnormality Abnormal ECG When compared with ECG of 12-NOV-2020 17:07, Premature atrial complexes are now Present Nonspecific T wave abnormality now evident in Anterior leads Referred By: Benjamin Swain Electronically Signed By:Cosme Brown
--- NOTE | 2022-10-04 20:09 | ED_ITS ---
HPI - General Adult General Chief complaint: General Medical <BRANDY Vela - Last Filed: 10/07/22 10:12> Stated complaint: asthma,abd and leg swelling <BRANDY Vela - Last Filed: 10/07/22 10:12> Time Seen by Provider: 10/04/22 23:28 <BRANDY Vela - Last Filed: 10/07/22 10:12> Source: patient <Herbie Hernandez MD - Last Filed: 10/05/22 03:05> Limitations: no limitations <Herbie Hernandez MD - Last Filed: 10/05/22 03:05> History of Present Illness HPI narrative: This is a 67-year-old female with history is schizophrenia, who complains of abdominal distention for about a month. The patient has had some abdominal discomfort. She is concerned about swelling in her face and abdomen. She denies any peripheral edema. She denies any nausea vomiting, diarrhea, constipation. She has not any fever. She denies any dysuria, does have some urinary frequency. She notes she has some discomfort with swallowing and recently had a barium swallow study done. She has chronic asthma and has had some chronic chest tightness but denies that that is an acute issue tonight. The patient denies abdominal pain currently <Herbie Hernandez MD - Last Filed: 10/05/22 03:05> Related Data Home medications: Home Medications Medication Instructions Recorded Confirmed clonazepam 0.5 mg tablet 0.5 mg PO DAILY 11/14/20 11/14/20 eszopiclone 3 mg tablet 3 mg PO BEDTIME 11/14/20 11/14/20 melatonin 5 mg tablet 5 mg PO BEDTIME 11/14/20 11/14/20 fluticasone propionate 50 1 spray intranasal BID 09/14/21 mcg/actuation nasal spray,suspension mirtazapine 30 mg tablet 30 mg PO BEDTIME 09/14/21 montelukast 10 mg tablet 10 mg PO DAILY 09/14/21 olanzapine 20 mg tablet 20 mg PO BEDTIME 09/14/21 simvastatin 40 mg tablet 40 mg PO BEDTIME 09/14/21 acetaminophen 650 mg 1,300 mg PO Q8H PRN 05/29/22 tablet,extended release calcium carbonate 600 mg-vitamin 1 tab PO BID 05/29/22 D3 10 mcg (400 unit) tablet cetirizine 10 mg tablet 10 mg PO DAILY 05/29/22 hydroxyzine HCl 50 mg tablet 50 mg PO BEDTIME 05/29/22 ketotifen fumarate 0.025 % (0.035 1 drp ophthalmic (eye) BID itch 05/29/22 %) eye drops losartan 25 mg tablet 25 mg PO DAILY 05/29/22 pantoprazole 40 mg tablet,delayed 40 mg PO DAILY 05/29/22 release Previous Rx's Medication Instructions Recorded albuterol sulfate 2.5 mg/3 mL 2.5 mg (3 mL) inhalation QID copd 11/14/20 (0.083 %) solution for nebulization 30 days #360 mL albuterol sulfate 90 mcg/actuation 2 inh inhalation Q4-6H PRN 08/11/21 breath activated powder inhaler shortness of breath 30 days #1 ea fluticasone fur. 200 mcg-umeclid 1 inh inhalation DAILY 30 days #1 05/08/22 62.5 mcg-vilant 25 mcg ea inhalat.powder (Trelegy Ellipta) <BRANDY Vela - Last Filed: 10/07/22 10:12> Allergies/adverse reactions: Allergies Allergy/AdvReac Type Severity Reaction Status Date / Time No Known Allergies Allergy Verified 10/04/22 20:10 [No Known Allergies*] <BRANDY Vela - Last Filed: 10/07/22 10:12> Review of Systems Review of Systems: Yes all other systems are reviewed and are negative <Herbie Hernandez MD - Last Filed: 10/05/22 03:05> Constitutional: Constitutional: Reports as per HPI and Denies fever(s) <Herbie Hernandez MD - Last Filed: 10/05/22 03:05> Eyes: Eyes: Reports as per HPI and Reports no additional eye complaints <Herbie Hernandez MD - Last Filed: 10/05/22 03:05> ENT: Reports system reviewed and no additional complaints, except as documented, Reports as per HPI, Denies nasal congestion, Denies nasal discharge and Denies sore throat <Herbie Hernandez MD - Last Filed: 10/05/22 03:05> Cardiovascular: Cardiovascular: Reports as per HPI, Denies chest pain and Reports dyspnea (Chronic) <Herbie Hernandez MD - Last Filed: 10/05/22 03:05> Respiratory: Respiratory: Reports as per HPI, Denies cough and Reports dyspnea (Chronic) <Herbie Hernandez MD - Last Filed: 10/05/22 03:05> Gastrointestinal: Gastrointestinal: Reports as per HPI, Reports abdominal pain, Denies constipation, Denies diarrhea, Reports nausea, Denies vomiting and Reports other (Feels distended) <Herbie Hernandez MD - Last Filed: 10/05/22 03:05> Genitourinary: Genitourinary: Reports as per HPI, Denies hematuria, Denies urinary frequency and Denies dysuria <Herbie Hernandez MD - Last Filed: 10/05/22 03:05> Musculoskeletal: Musculoskeletal: Reports no additional musculoskeletal complaints and Denies numbness <Herbie Hernandez MD - Last Filed: 10/05/22 03:05> Integumentary/Breasts: Skin/Breast: Reports as per HPI and Denies rash <Herbie Hernandez MD - Last Filed: 10/05/22 03:05> Neurologic: Reports as per HPI, Denies focal weakness and Denies numbness <Herbie Hernandez MD - Last Filed: 10/05/22 03:05> Psychiatric: Psychiatric: Reports no additional psychiatric complaints and Reports as per HPI <Herbie Hernandez MD - Last Filed: 10/05/22 03:05> Endocrine: Endocrine: Reports no additional endocrine complaints and Reports as per HPI <Herbie Hernandez MD - Last Filed: 10/05/22 03:05> Hematologic/Lymphatic: Hematologic/Lymphatic: Reports no additional hematologic/lymphatic complaints, Reports as per HPI and Reports other (No peripheral edema) <Herbie Hernandez MD - Last Filed: 10/05/22 03:05> [facility], [facility] Past Medical History Medical History: Medical History Alcohol abuse Asthma Chronic sinusitis High cholesterol HLD (hyperlipidemia) Hypertension Marijuana use Patient denies significant medical history Pre-diabetes <BRANDY Vela - Last Filed: 10/07/22 10:12> Surgical History: Surgical History H/O colonoscopy <BRANDY Vela - Last Filed: 10/07/22 10:12> Family History Family History: Family History (Updated 08/08/22 @ 11:32 by MARYLOU Seay) Brother Mouth cancer <BRANDY Vela - Last Filed: 10/07/22 10:12> Social History Social History: Social History Alcohol intake: former Advance Directives: No service: No Current occupational status: disabled <BRANDY Vela - Last Filed: 10/07/22 10:12> Physical Exam ED Vital Signs: Vital Signs - 24 hr 10/04/22 20:04 10/04/22 23:51 10/05/22 00:12 Temperature 96.8 F 98.3 F Pulse Rate 87 79 79 Respiratory Rate 20 18 16 Blood Pressure 142/85 H 151/98 H Pulse Oximetry 97 98 Oxygen Delivery Method Room Air Room Air BMI result Body Mass Index 31.3 <BRANDY Vela - Last Filed: 10/07/22 10:12> Vital Signs - 24 hr 10/04/22 20:04 10/04/22 23:51 10/05/22 00:12 Temperature 96.8 F 98.3 F Pulse Rate 87 79 79 Respiratory Rate 20 18 16 Blood Pressure 142/85 H 151/98 H Pulse Oximetry 97 98 Oxygen Delivery Method Room Air Room Air BMI result Body Mass Index 31.3 <Herbie Hernandez MD - Last Filed: 10/05/22 03:05> Const General: no acute distress <Herbie Hernandez MD - Last Filed: 10/05/22 03:05> Orientation/consciousness: patient oriented x3 <Herbie Hernandez MD - Last Filed: 10/05/22 03:05> HENMT Head: Yes normal to inspection <Herbie Hernandez MD - Last Filed: 10/05/22 03:05> General nose exam: Normal external nose present <Herbie Hernandez MD - Last Filed: 10/05/22 03:05> Mouth: moist mucous membranes <Herbie Hernandez MD - Last Filed: 10/05/22 03:05> Throat: Yes posterior oropharynx normal, Yes tonsils normal and Yes uvula midline <Herbie Hernandez MD - Last Filed: 10/05/22 03:05> Eyes Eyelids: Yes eyelids normal <Herbie Hernandez MD - Last Filed: 10/05/22 03:05> Conjunctivae: conjunctivae normal <Herbie Hernandez MD - Last Filed: 10/05/22 03:05> Pupils: Equal, round and reactive pupils present <Herbie Hernandez MD - Last Filed: 10/05/22 03:05> Neck Neck: Yes supple <Herbie Hernandez MD - Last Filed: 10/05/22 03:05> Resp Effort & Inspection: normal respiratory effort <Herbie Hernandez MD - Last Filed: 10/05/22 03:05> Auscultation: clear to auscultation bilaterally <Herbie Hernandez MD - Last Filed: 10/05/22 03:05> Cardio Rate: regular rate <Herbie Hernandez MD - Last Filed: 10/05/22 03:05> Rhythm: regular rhythm <Herbie Hernandez MD - Last Filed: 10/05/22 03:05> Heart sounds: S1 normal heart sound present, S2 normal heart sound present, no gallops, no murmurs and no rubs <Herbie Hernandez MD - Last Filed: 10/05/22 03:05> GI Other: Moderately obese <Herbie Hernandez MD - Last Filed: 10/05/22 03:05> Inspection: No distended <Herbie Hernandez MD - Last Filed: 10/05/22 03:05> Palpation (GI): Soft to palpation and nontender <Herbie Hernandez MD - Last Filed: 10/05/22 03:05> Auscultation: normal bowel sounds <Herbie Hernandez MD - Last Filed: 10/05/22 03:05> Skin General skin exam: other (Warm and dry) <Herbie Hernandez MD - Last Filed: 10/05/22 03:05> Neuro General: patient oriented x3 and CN's II-XI intact bilaterally <Herbie Hernandez MD - Last Filed: 10/05/22 03:05> Cranial nerves: Yes Equal, round and reactive pupils present <Herbie Hernandez MD - Last Filed: 10/05/22 03:05> Extrem Other: No edema <Herbie Hernandez MD - Last Filed: 10/05/22 03:05> General: Yes no pedal edema <Herbie Hernandez MD - Last Filed: 10/05/22 03:05> Psych Affect: normal affect <Herbie Hernandez MD - Last Filed: 10/05/22 03:05> Attitude: cooperative <Herbie Hernandez MD - Last Filed: 10/05/22 03:05> Course Course Course Narrative: CARMELLA; daughter brings patient for swelling abomen and face for the past couple of months. She state patient also use to have swelling of legs, but those resolved. Patient not in distress. lower extremities negative for swelling, pitting edema, or calf tenderness. labs, EKG, and chest xray ordered <BRANDY Vela - Last Filed: 10/07/22 10:12> Medications Administered Discontinued Medications Generic Name Dose Route Start Last Admin Trade Name Freq PRN Reason Stop Dose Admin Albuterol/Ipratropium 3 ml 10/04/22 23:43 10/05/22 00:11 Albuterol/Iprat 2.5/0.5mg 3 Ml Ampul.Neb INHALE 10/04/22 23:44 3 ml ONCE ONE Administration Lorazepam 1 mg 10/04/22 23:43 10/04/22 23:53 Lorazepam 1 Mg Tablet PO 10/04/22 23:44 1 mg ONCE ONE Administration <BRANDY Vela - Last Filed: 10/07/22 10:12> Medications Administered Discontinued Medications Generic Name Dose Route Start Last Admin Trade Name Freq PRN Reason Stop Dose Admin Albuterol/Ipratropium 3 ml 10/04/22 23:43 10/05/22 00:11 Albuterol/Iprat 2.5/0.5mg 3 Ml Ampul.Neb INHALE 10/04/22 23:44 3 ml ONCE ONE Administration Lorazepam 1 mg 10/04/22 23:43 10/04/22 23:53 Lorazepam 1 Mg Tablet PO 10/04/22 23:44 1 mg ONCE ONE Administration <Herbie Hernandez MD - Last Filed: 10/05/22 03:05> Medical Decision Making [facility] Narrative Medical decision making narrative: Patient with chronic symptoms, was concerned about abdominal distention. Patient has no peripheral edema. Renal function and LFTs are normal. Patient had no abdominal pain and is comfortable with outpatient follow-up and workup. White blood cell count mildly elevated at 13.7 but this it has been a common finding for this patient <Herbie Hernandez MD - Last Filed: 10/05/22 03:05> Lab Data Lab results reviewed: Yes I reviewed the patient's lab results. <Herbie Hernandez MD - Last Filed: 10/05/22 03:05> Result diagrams: : 10/04/22 21:07 10/04/22 21:07 <BRANDY Vela - Last Filed: 10/07/22 10:12> Labs: Lab Results 10/04/22 10/04/22 10/04/22 Range/Units 21:07 21:07 21:07 WBC 13.7 H (4.8-10.8) X10*3/uL RBC 4.18 L (4.20-5.50) X10*6/uL Hgb 12.3 (12.0-16.0) g/dl Hct 37.1 (37.0-47.0) % MCV 88.8 (80.0-98.0) fL MCH 29.4 (27.0-33.0) pg MCHC 33.2 (31.0-35.0) g/dl RDW 12.5 (11.0-16.0) % Plt Count 418 H (160-400) X10*3/uL MPV 9.8 (9.4-12.3) fL Immature Gran % (Auto) 0.4 (0.0-0.4) % Neut % (Auto) 58.7 (45-73) % Lymph % (Auto) 31.5 (20-40) % [place] % (Auto) 6.8 (2-11) % Eos % (Auto) 2.0 (0-4) % Baso % (Auto) 0.6 (0-2) % Lymph # (Auto) 4.3 (1.2-4.9) X10*3/uL [place] # (Auto) 0.9 (0.1-1.2) X10*3/uL Eos # (Auto) 0.3 (0.0-0.4) X10*3/uL Baso # (Auto) 0.1 (0.0-0.2) X10*3/uL Abs Immat Gran (auto) 0.06 H (0.00-0.03) X10*3/uL Absolute Neuts (auto) 8.0 (2.0-8.3) x10*3/uL Absolute Nucleated RBC 0.000 (0.0-0.012) X10*3/uL Nucleated RBC % (auto) 0.0 (0.0-0.2) /100WBC PT 11.8 (10.0-13.1) SEC INR 1.0 (0.9-1.1) APTT 30.4 (26.0-36.4) SEC Sodium 142 (135-145) mmol/L Potassium 3.8 (3.3-5.1) mmol/L Chloride 106 (96-108) mmol/L Carbon Dioxide 28 (22-29) mmol/L Anion Gap 12 (12-20) BUN 12 (9-16) mg/dL Creatinine 1.00 (0.5-1.4) mg/dL Estim Creat Clear Calc 55.5 Estimated GFR 55 Random Glucose 121 H (60-115) mg/dL Calcium 9.5 (8.4-10.2) mg/dL Total Bilirubin 0.3 (0.0-1.0) mg/dL AST 11 (5-31) U/L ALT 9 (0-31) U/L Alkaline Phosphatase 58 (39-117) U/L Troponin I High Sens (<3.5-17.0) ng/L B-Natriuretic Peptide (<100) pg/mL Total Protein 7.0 (6.5-8.0) g/dL Albumin 4.2 (3.5-5.0) g/dL 10/04/22 10/04/22 Range/Units 21:07 21:07 WBC (4.8-10.8) X10*3/uL RBC (4.20-5.50) X10*6/uL Hgb (12.0-16.0) g/dl Hct (37.0-47.0) % MCV (80.0-98.0) fL MCH (27.0-33.0) pg MCHC (31.0-35.0) g/dl RDW (11.0-16.0) % Plt Count (160-400) X10*3/uL MPV (9.4-12.3) fL Immature Gran % (Auto) (0.0-0.4) % Neut % (Auto) (45-73) % Lymph % (Auto) (20-40) % [place] % (Auto) (2-11) % Eos % (Auto) (0-4) % Baso % (Auto) (0-2) % Lymph # (Auto) (1.2-4.9) X10*3/uL [place] # (Auto) (0.1-1.2) X10*3/uL Eos # (Auto) (0.0-0.4) X10*3/uL Baso # (Auto) (0.0-0.2) X10*3/uL Abs Immat Gran (auto) (0.00-0.03) X10*3/uL Absolute Neuts (auto) (2.0-8.3) x10*3/uL Absolute Nucleated RBC (0.0-0.012) X10*3/uL Nucleated RBC % (auto) (0.0-0.2) /100WBC PT (10.0-13.1) SEC INR (0.9-1.1) APTT (26.0-36.4) SEC Sodium (135-145) mmol/L Potassium (3.3-5.1) mmol/L Chloride (96-108) mmol/L Carbon Dioxide (22-29) mmol/L Anion Gap (12-20) BUN (9-16) mg/dL Creatinine (0.5-1.4) mg/dL Estim Creat Clear Calc Estimated GFR Random Glucose (60-115) mg/dL Calcium (8.4-10.2) mg/dL Total Bilirubin (0.0-1.0) mg/dL AST (5-31) U/L ALT (0-31) U/L Alkaline Phosphatase (39-117) U/L Troponin I High Sens < 3.5 (<3.5-17.0) ng/L B-Natriuretic Peptide 30 (<100) pg/mL Total Protein (6.5-8.0) g/dL Albumin (3.5-5.0) g/dL <BRANDY Vela - Last Filed: 10/07/22 10:12> Lab Results 10/04/22 10/04/22 10/04/22 Range/Units 21:07 21:07 21:07 WBC 13.7 H (4.8-10.8) X10*3/uL RBC 4.18 L (4.20-5.50) X10*6/uL Hgb 12.3 (12.0-16.0) g/dl Hct 37.1 (37.0-47.0) % MCV 88.8 (80.0-98.0) fL MCH 29.4 (27.0-33.0) pg MCHC 33.2 (31.0-35.0) g/dl RDW 12.5 (11.0-16.0) % Plt Count 418 H (160-400) X10*3/uL MPV 9.8 (9.4-12.3) fL Immature Gran % (Auto) 0.4 (0.0-0.4) % Neut % (Auto) 58.7 (45-73) % Lymph % (Auto) 31.5 (20-40) % [place] % (Auto) 6.8 (2-11) % Eos % (Auto) 2.0 (0-4) % Baso % (Auto) 0.6 (0-2) % Lymph # (Auto) 4.3 (1.2-4.9) X10*3/uL [place] # (Auto) 0.9 (0.1-1.2) X10*3/uL Eos # (Auto) 0.3 (0.0-0.4) X10*3/uL Baso # (Auto) 0.1 (0.0-0.2) X10*3/uL Abs Immat Gran (auto) 0.06 H (0.00-0.03) X10*3/uL Absolute Neuts (auto) 8.0 (2.0-8.3) x10*3/uL Absolute Nucleated RBC 0.000 (0.0-0.012) X10*3/uL Nucleated RBC % (auto) 0.0 (0.0-0.2) /100WBC PT 11.8 (10.0-13.1) SEC INR 1.0 (0.9-1.1) APTT 30.4 (26.0-36.4) SEC Sodium 142 (135-145) mmol/L Potassium 3.8 (3.3-5.1) mmol/L Chloride 106 (96-108) mmol/L Carbon Dioxide 28 (22-29) mmol/L Anion Gap 12 (12-20) BUN 12 (9-16) mg/dL Creatinine 1.00 (0.5-1.4) mg/dL Estim Creat Clear Calc 55.5 Estimated GFR 55 Random Glucose 121 H (60-115) mg/dL Calcium 9.5 (8.4-10.2) mg/dL Total Bilirubin 0.3 (0.0-1.0) mg/dL AST 11 (5-31) U/L ALT 9 (0-31) U/L Alkaline Phosphatase 58 (39-117) U/L Troponin I High Sens (<3.5-17.0) ng/L B-Natriuretic Peptide (<100) pg/mL Total Protein 7.0 (6.5-8.0) g/dL Albumin 4.2 (3.5-5.0) g/dL 10/04/22 10/04/22 Range/Units 21:07 21:07 WBC (4.8-10.8) X10*3/uL RBC (4.20-5.50) X10*6/uL Hgb (12.0-16.0) g/dl Hct (37.0-47.0) % MCV (80.0-98.0) fL MCH (27.0-33.0) pg MCHC (31.0-35.0) g/dl RDW (11.0-16.0) % Plt Count (160-400) X10*3/uL MPV (9.4-12.3) fL Immature Gran % (Auto) (0.0-0.4) % Neut % (Auto) (45-73) % Lymph % (Auto) (20-40) % [place] % (Auto) (2-11) % Eos % (Auto) (0-4) % Baso % (Auto) (0-2) % Lymph # (Auto) (1.2-4.9) X10*3/uL [place] # (Auto) (0.1-1.2) X10*3/uL Eos # (Auto) (0.0-0.4) X10*3/uL Baso # (Auto) (0.0-0.2) X10*3/uL Abs Immat Gran (auto) (0.00-0.03) X10*3/uL Absolute Neuts (auto) (2.0-8.3) x10*3/uL Absolute Nucleated RBC (0.0-0.012) X10*3/uL Nucleated RBC % (auto) (0.0-0.2) /100WBC PT (10.0-13.1) SEC INR (0.9-1.1) APTT (26.0-36.4) SEC Sodium (135-145) mmol/L Potassium (3.3-5.1) mmol/L Chloride (96-108) mmol/L Carbon Dioxide (22-29) mmol/L Anion Gap (12-20) BUN (9-16) mg/dL Creatinine (0.5-1.4) mg/dL Estim Creat Clear Calc Estimated GFR Random Glucose (60-115) mg/dL Calcium (8.4-10.2) mg/dL Total Bilirubin (0.0-1.0) mg/dL AST (5-31) U/L ALT (0-31) U/L Alkaline Phosphatase (39-117) U/L Troponin I High Sens < 3.5 (<3.5-17.0) ng/L B-Natriuretic Peptide 30 (<100) pg/mL Total Protein (6.5-8.0) g/dL Albumin (3.5-5.0) g/dL <Herbie Hernandez MD - Last Filed: 10/05/22 03:05> Imaging Data Chest x-ray: Radiologist's impression: IMPRESSION: No acute cardiopulmonary findings. <Herbie Hernandez MD - Last Filed: 10/05/22 03:05> ECG Data Attestation: I personally reviewed and interpreted this ECG as follows: <Herbie Hernandez MD - Last Filed: 10/05/22 03:05> Interpretation: Sinus rhythm with occasional PACs. Nonspecific T-wave abnormality. PACs are new compared to EKG dated 11/12/2020. <Herbie Hernandez MD - Last Filed: 10/05/22 03:05> Discharge Plan Discharge Clinical Impression: Abdominal distension <BRANDY Vela - Last Filed: 10/07/22 10:12> Patient Disposition: Home, Self-Care <BRANDY Vela - Last Filed: 10/07/22 10:12> Instructions: Abdominal Pain (ED) <BRANDY Vela - Last Filed: 10/07/22 10:12> Additional Instructions: Follow-up with your primary care physician. Continue current medications. Return for any new or worsened symptoms such as progressive abdominal pain, fever, inability to hold down fluids <BRANDY Vela - Last Filed: 10/07/22 10:12> Prescriptions: No Action Trelegy Ellipta 200-62.5-25 mcg blister with device 1 inh inhalation DAILY 30 Days Qty: 1 6RF clonazepam 0.5 mg Tablet 0.5 mg PO DAILY eszopiclone 3 mg Tablet 3 mg PO BEDTIME melatonin 5 mg Tablet 5 mg PO BEDTIME albuterol sulfate 2.5 mg /3 mL (0.083 %) solution for nebulization 2.5 mg inhalation QID 30 Days Qty: 360 0RF albuterol sulfate 90 mcg/actuation aerosol powdr breath activated 2 inh inhalation Q4-6H PRN (Reason: shortness of breath) 30 Days Qty: 1 6RF montelukast 10 mg tablet 10 mg PO DAILY fluticasone propionate 50 mcg/actuation spray,suspension 1 spray intranasal BID simvastatin 40 mg tablet 40 mg PO BEDTIME olanzapine 20 mg tablet 20 mg PO BEDTIME mirtazapine 30 mg tablet 30 mg PO BEDTIME calcium carbonate-vitamin D3 600 mg-10 mcg (400 unit) tablet 1 tab PO BID losartan 25 mg tablet 25 mg PO DAILY pantoprazole 40 mg tablet,delayed release (DR/EC) 40 mg PO DAILY hydroxyzine HCl 50 mg tablet 50 mg PO BEDTIME ketotifen fumarate 0.025 % (0.035 %) drops 1 drp ophthalmic (eye) BID cetirizine 10 mg tablet 10 mg PO DAILY acetaminophen 650 mg tablet extended release 1,300 mg PO Q8H PRN <BRANDY Vela - Last Filed: 10/07/22 10:12> Interventions: ED Discharge Assessment Last Done: 10/05/22 00:41 <BRANDY Vela - Last Filed: 10/07/22 10:12> Discharge Date/Time: 10/05/22 00:42 <BRANDY Vela - Last Filed: 10/07/22 10:12>
[2022-10-04 21:13] LABS: MANUAL DIFF FLAG NO
[2022-10-04 21:15] LABS: Basophils Absolute Auto 0.1 X10*3/uL (0.0-0.2); Basophils Percent Auto 0.6 % (0-2); Eosinophils Absolute Auto 0.3 X10*3/uL (0.0-0.4); Hematocrit 37.1 % (37.0-47.0); Hemoglobin 12.3 g/dl (12.0-16.0); Imm Gran Abs Auto 0.06 X10*3/uL (0.00-0.03); Imm Gran Pct Auto 0.4 % (0.0-0.4); Lymphocytes Absolute Auto 4.3 X10*3/uL (1.2-4.9); Lymphocytes Percent Auto 31.5 % (20-40); Mean Corpuscular HGB Conc 33.2 g/dl (31.0-35.0); Mean Corpuscular Hemoglobin 29.4 pg (27.0-33.0); Mean Corpuscular Volume 88.8 fL (80.0-98.0); Mean Platelet Volume 9.8 fL (9.4-12.3); Monocytes Absolute Auto 0.9 X10*3/uL (0.1-1.2); Monocytes Percent Auto 6.8 % (2-11); Neutrophils Percent Auto 58.7 % (45-73); Platelet Count 418 X10*3/uL (160-400); Red Blood Count 4.18 X10*6/uL (4.20-5.50); Red Cell Distribution Width 12.5 % (11.0-16.0); White Blood Count 13.7 X10*3/uL (4.8-10.8)
[2022-10-04 21:21] LABS: Prothrombin Time 11.8 SEC (10.0-13.1)
[2022-10-04 21:23] LABS: Partial Thromboplastin Time 30.4 SEC (26.0-36.4)
[2022-10-04 21:38] LABS: Alanine Aminotransferase 9 U/L (0-31); Albumin Level 4.2 g/dL (3.5-5.0); Alkaline Phosphatase 58 U/L (39-117); Anion Gap 12 (12-20); Aspartate Amino Transferase 11 U/L (5-31); Bilirubin Total 0.3 mg/dL (0.0-1.0); Blood Urea Nitrogen 12 mg/dL (9-16); Calcium 9.5 mg/dL (8.4-10.2); Carbon Dioxide 28 mmol/L (22-29); Chloride 106 mmol/L (96-108); Creatinine Clr Calc Pharmacy 55.5; Estimated Glomerular Filt Rate 55; Glucose Random 121 mg/dL (60-115); Potassium 3.8 mmol/L (3.3-5.1); Sodium 142 mmol/L (135-145)
[2022-10-04 21:41] LABS: B Type Natriuretic Peptide 30 pg/mL (<100)
[2022-10-04 21:47] LABS: Troponin-I High Sensitivity < 3.5 ng/L (<3.5-17.0)
[2022-10-04 23:51] VITALS: BP 151/98; PULSE 79; RESP 18; TEMP 36.8; O2SAT 98
[2022-10-04] MEDS: LORazepam 1 MG TABLET PO (23:53)
[2022-10-05] MEDS: Albuterol/Iprat 2.5/0.5MG 3 ML AMPUL.NEB INHALE (00:11)
[2022-10-05 00:12] VITALS: PULSE 79; RESP 16; O2SAT 98
== END 2022-10-05 00:42 | disposition home or self-care (01) ==
PROVIDERS: Physician Assistant; Emergency Provider Emergency Medicine
DX: R14.0 Abdominal distension (gaseous) (principal); R06.00 Dyspnea, unspecified; E78.5 Hyperlipidemia, unspecified; F12.90 Cannabis use, unspecified, uncomplicated; Z79.899 Other long term (current) drug therapy; Z79.02 Long term (current) use of antithrombotics/antiplatelets
CPT/HCPCS: 36415; 71045; 80053; 83880; 84484; 85025; 85610; 85730; 93005; 94640; 99284

== ENCOUNTER → 2022-12-19 14:00 | Outpatient (BNVA) | payer MEDICARE, MEDICAID, SELFPAY | PROVIDERS: Visit Provider Internal Medicine Pulmonary Disease | DX: R91.8 Other nonspecific abnormal finding of lung field (principal); J44.9 Chronic obstructive pulmonary disease, unspecified; G47.33 Obstructive sleep apnea (adult) (pediatric); R06.09 Other forms of dyspnea; Z79.899 Other long term (current) drug therapy | CPT/HCPCS: 99212 ==

== ENCOUNTER → 2023-01-10 13:08 | Outpatient (REF) | payer MEDICARE, MEDICAID, SELFPAY | LOC: HO.SL 13:08 | PROVIDERS: Visit Provider Internal Medicine Pulmonary Disease | DX: G47.33 Obstructive sleep apnea (adult) (pediatric) (principal) | CPT/HCPCS: 95806 ==

== ENCOUNTER → 2023-03-26 10:39 | Day surgery (SDC) | payer MEDICARE, MEDICAID, SELFPAY ==
[2023-03-25 08:43] VITALS: BMI 34.5
--- NOTE | 2023-03-25 10:47 | HO.ANESPROP2 ---
HPI - Anesthesia Eval Consult details Narrative: 67yo F for Upper Endoscopy and Colonoscopy Follows Dr Posey for Asthma-COPD, pulm htn, ANNE MARIE - Last seen 12/2022. Started on Lasix for some LE edema, orthopnea. Otherwise stable. [facility] Active Problems Active Problems: All Active Problems (Updated 12/19/22 @ 14:50 by Og Posey MD) ANNE MARIE (obstructive sleep apnea) (Acute) Gallstones (Acute) Dyspnea on exertion (Acute) Upper abdominal pain (Acute) Dysphagia (Acute) Pre-op examination (Acute) Tubular adenoma of colon (Acute) GERD (gastroesophageal reflux disease) (Acute) Osteoarthritis of hip (Acute) Chronic low back pain (Acute) Gallstones (Acute) Smoker (Acute) Schizophrenia (Acute) Pulmonary nodules (Acute) Asthma-COPD overlap syndrome (Acute) Chronic sinusitis (Acute) Asthma exacerbation (Acute) Past Medical History Medical History Alcohol abuse Asthma Chronic sinusitis High cholesterol HLD (hyperlipidemia) Hypertension Marijuana use Patient denies significant medical history Pre-diabetes Family History Family History (Updated 08/08/22 @ 11:32 by MARYLOU Seay) Brother Mouth cancer Surgical History Surgical History H/O colonoscopy Social History Social History Alcohol intake: former Patient Tobacco Use Status: Never used Tobacco Are you DNR?: No Advance Directives: No Advance Directives Information Provided: Yes Nutrition Risks: No Nutritional Risk service: No Current occupational status: disabled Meds Allergies Allergy/AdvReac Type Severity Reaction Status Date / Time No Known Allergies Allergy Verified 12/19/22 14:18 [No Known Allergies*] Home Medications Medication Instructions Recorded Confirmed Last Taken Type clonazepam 0.5 mg tablet 0.5 mg PO DAILY 11/14/20 11/14/20 Unknown History eszopiclone 3 mg tablet 3 mg PO BEDTIME 11/14/20 11/14/20 Unknown History melatonin 5 mg tablet 5 mg PO BEDTIME 11/14/20 11/14/20 Unknown History fluticasone propionate 50 1 spray intranasal BID 09/14/21 Unknown History mcg/actuation nasal spray,suspension mirtazapine 30 mg tablet 30 mg PO BEDTIME 09/14/21 Unknown History montelukast 10 mg tablet 10 mg PO DAILY 09/14/21 Unknown History olanzapine 20 mg tablet 20 mg PO BEDTIME 09/14/21 Unknown History simvastatin 40 mg tablet 40 mg PO BEDTIME 09/14/21 Unknown History acetaminophen 650 mg 1,300 mg PO Q8H PRN 05/29/22 Unknown History tablet,extended release calcium carbonate 600 mg-vitamin 1 tab PO BID 05/29/22 Unknown History D3 10 mcg (400 unit) tablet cetirizine 10 mg tablet 10 mg PO DAILY 05/29/22 Unknown History hydroxyzine HCl 50 mg tablet 50 mg PO BEDTIME 05/29/22 Unknown History ketotifen fumarate 0.025 % (0.035 1 drp ophthalmic (eye) BID itch 05/29/22 Unknown History %) eye drops losartan 25 mg tablet 25 mg PO DAILY 05/29/22 Unknown History pantoprazole 40 mg tablet,delayed 40 mg PO DAILY 05/29/22 Unknown History release Exam Exam Date and Time: March 25, 2023 1047 Height,Weight and Vital Signs: Height 5 ft 3 in Weight 88.451 kg Pertinent Lab Results Pertinent Lab Results: Laboratory Tests 10/04/22 10/04/22 21:07 21:07 WBC 13.7 H Hgb 12.3 Hct 37.1 Plt Count 418 H Sodium 142 Potassium 3.8 Chloride 106 Carbon Dioxide 28 BUN 12 Creatinine 1.00 Narrative Narrative: EKG 10/2022 Vent. Rate : 086 BPM ? ? Atrial Rate : 086 BPM ?? P-R Int : 138 ms? QRS Dur : 080 ms ? ? QT Int : 348 ms ? ? ? P-R-T Axes : 061 028 039 degrees ?? QTc Int : 416 ms ? Sinus rhythm with Premature atrial complexes Nonspecific T wave abnormality Abnormal ECG When compared with ECG of 12-NOV-2020 17:07, Premature atrial complexes are now Present Nonspecific T wave abnormality now evident in Anterior leads ECHO 09/2022 Conclusions: - Normal left ventricular size and systolic function. There is ? mildly increased left ventricular wall thickness.? The visually? estimated ejection fraction is between 55-60%. ? - E/E prime ratio is between 8 and 15 consistent with? indeterminate filling pressures. ? - Normal right ventricular cavity size and systolic function.? ? - The left atrium is likely dilated.? The right atrium is normal in size. ? - There is mild tricuspid valve regurgitation.? The right? ventricular systolic pressure is 39 mmHg.? Normal right atrial ? pressure.? Mild pulmonary hypertension is present. ?? Assessment and Plan Assessment Anesthesia Assessment: Chart Reviewed
[2023-03-26 11:00] VITALS: BP 155/92; PULSE 110; RESP 20; TEMP 36.1; O2SAT 95
[2023-03-26] MEDS: Lactated Ringers 1,000 ML 100 ML IVCONT (11:13)
--- NOTE | 2023-03-26 11:37 | PC.NURSE ---
pt cancelled by anesthesia and dr breen f/u with pcp and ladle liner helper for sob and c/p with activity pt aware research and development tester at bedside pt ageeable to plan
--- NOTE | 2023-03-26 11:55 | PC.NURSE ---
pt aware to f/u with pcp and dr linda called to dr linda office left message awaiting called back, i will call pt with appt
--- NOTE | 2023-03-26 13:46 | PC.NURSE ---
called dr han office spoke to grisel aware patient needs cardiac clearance prior to rescheduling procedure Grisel stated will let tiesha copeland cartridge gauger aware its her patient. also called patient to make aware again the importance to f/u with pcp and referral to cardiology for her symptoms with interpretor
== END ==
PROVIDERS: Visit Provider Internal Medicine Gastroenterology
DX: R13.10 Dysphagia, unspecified (principal); Z53.09 Procedure and treatment not carried out because of other contraindication; R06.02 Shortness of breath; R07.9 Chest pain, unspecified; D12.6 Benign neoplasm of colon, unspecified

== ENCOUNTER → 2023-04-17 10:39 | Outpatient (BNVA) | payer MEDICARE, MEDICAID, SELFPAY | PROVIDERS: Visit Provider Nurse Practitioner | DX: R13.10 Dysphagia, unspecified (principal); R10.10 Upper abdominal pain, unspecified; K58.2 Mixed irritable bowel syndrome; K21.9 Gastro-esophageal reflux disease without esophagitis; K80.20 Calculus of gallbladder without cholecystitis without obstruction; D12.6 Benign neoplasm of colon, unspecified | CPT/HCPCS: 99212 ==

== ENCOUNTER → 2023-04-24 12:59 | Outpatient (BNVA) | payer MEDICARE, MEDICAID, SELFPAY | PROVIDERS: PCP Nurse Practitioner Family; Visit Provider Internal Medicine Pulmonary Disease | DX: J44.9 Chronic obstructive pulmonary disease, unspecified (principal); R91.8 Other nonspecific abnormal finding of lung field; G47.33 Obstructive sleep apnea (adult) (pediatric); Z79.899 Other long term (current) drug therapy | CPT/HCPCS: 99212 ==

== ENCOUNTER 2023-05-14 13:54 | Outpatient (AMB) | payer MEDICARE, MEDICAID, SELFPAY ==
--- NOTE | 2023-05-14 14:23 | A.OFFVIS_ITS ---
Intake Vital Signs 05/14/23 14:34 Height 5 ft 3 in Weight 194 lb 0.108 oz BMI 34.4 BP 131/73 Blood Pressure Location Lt brachial Position Sitting Pulse 89 Intake Visit Reasons: 5 week follow up Intake Note: Lauren presents in the office as a 5 week follow up. CC: She states that she is having BM every day up to 3 a day - it is soft stools. Sports Management Professor Required: Yes Sports Management Professor Name: BREWERY CELLAR WORKER Allergies No Known Allergies [No Known Allergies*] Allergy (Verified 05/14/23 14:34) HPI 5 week follow up HPI Details Assessment & Plan (1) Dysphagia: ?Code(s): R13.10 - Dysphagia, unspecified ?Plan: Maltese Mercedes Stewart She says she does not know why she was scheduled for the appt today. I explain the results of the HIDA scan and she does have right sided flank pain but not with eating only at night. She does not have pain wiht eating. I explain that she should avoid fattylfoods and if she has a severe attack she should consider a cholecystectomy. She says My whole body hurts and can you give me pills for that? She says she sees Pain mgmt and is given Tylenol for this - but this may just be her PCP. . 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 . She continues to have dysphagia in the oral phase? of swallowing that is worse with water but also happens with rice and meat. She says she was worse in the past but she has had mild improvement recently, she credits the pantoprazole.? Nevertheless I think we should try to rule out any kind of neuro muscular involvement by getting a modified barium swallow with speech therapy.? When I explained this to her she is agreeable. In the end does not seem that she has any trouble from her gallstones so were not going to pursue this any further.? It really seems more likely that her back pain/right flank pain is related to musculoskeletal component or to some general myalgias... Her only other complaint relates to her stooling which she says goes back and forth between constipation and diarrhea.? I will send a fiber supplement to her pharmacy to see if this can even out her stooling.? Return office visit in 4 weeks and after the barium swallow.? At the next visit we should discuss repeat colonoscopy since her last 1 was in 2014 and yielded a tubular adenoma and she is quite overdue for repeat.? She may be putting this off because of her general fear of anesthesia which is what kept her from having an EGD.. (2) Irritable bowel syndrome with both constipation and diarrhea: ?Code(s): K58.2 - Mixed irritable bowel syndrome (3) Tubular adenoma of colon: ?Code(s): D12.6 - Benign neoplasm of colon, unspecified ?Plan: 2014 colonoscopy= [facility] Ly (4) Upper abdominal pain: ?Code(s): R10.10 - Upper abdominal pain, unspecified (5) GERD (gastroesophageal reflux disease): ?Code(s): K21.9 - Gastro-esophageal reflux disease without esophagitis (6) Gallstones: ?Code(s): K80.20 - Calculus of gallbladder without cholecystitis without obstruction ? ? ? Orders: Orders FL barium swallow modified Today R13.10 - Dysphagia , unspecified ? Medications: New psyllium husk (Irena ly Fiber) 0.8 grams (2 x 0.4 gram) PO BID 60 c aps 6RF K58.2 - Mixed irri table bowel syndro me BARIUM SWALLOW 09/24/22 FINDINGS: The swallowing mechanism is normal. No aspiration or penetration. No retention. Normal esophageal motility. Mild gastroesophageal reflux. No hernia. No mass or stricture. Barium tablet passed freely into the stomach. FL/FL barium swallow IMPRESSION: Mild gastroesophageal reflux otherwise unremarkable exam. ? CORRESPONDENCE On 04/22/23 @ 00:03 System Wrote To Saniya Argueta Daemon,Background deleted item. On 03/22/23 @ 16:32 Saniya Argueta Wrote To Saniya Argueta Spoket to patient via insole presser Moreno # [id number]. Confirmed procedure? on Monday 03/26 at 1250p, confirmed ride, will pickling grader script- understands how to mix it and refrigerate it.? Reviewed clear liquid diet on Saturday- and to avoid blue , red, purple dye.? Reviewed to start drinking prep on Saturday around 5pm continue drinking 8 oz every 10-15min until stool is clear watery. Unsure if patient hung up or was disconnected, tried calling patient back - no answer. Saniya Argueta completed item. TODAY'S VISIT Filipino #[id number] She is here with her BREWERY CELLAR WORKER who is supportive. She says her swallowing has improved since she started taking the protonix. We reviewed the barium swallow which is unrevealing for any severe pathology. She says that she had a date for her EGD/colonoscopy but it was cancelled r/t high blood pressure. BUT she did NOT take her BP medications the morning of the procedure and I instruct her that the SHOULD take them the morning of the procedure. Again, she is overdue for colonoscopy r/t TA in 2014. She is not having any problems with her stooling. ROV 6 mos and of course after the EGD/colonoscopy. PENDING SALE TO [facility] Medical History Alcohol abuse Asthma Chronic sinusitis High cholesterol HLD (hyperlipidemia) Hypertension Marijuana use Patient denies significant medical history Pre-diabetes Surgical History H/O colonoscopy Family History Brother Mouth cancer Social History Alcohol intake: former Patient Tobacco Use Status: Never used Tobacco service: No Current occupational status: disabled Review of Systems Const Denies fatigue, Denies fever(s), Denies night sweats, Denies poor appetite and Denies weight loss ENT Reports Normal hearing present, Denies dental pain, Reports dysphagia, Denies hearing loss, Denies mouth pain, Denies odynophagia, Denies throat swelling, Denies tongue swelling and Reports other (Dentition adequate) Card Reports no additional complaints Resp Reports no additional complaints GI Denies abdominal pain, Denies melena, Denies bloating, Denies hematochezia, Rep orts constipation, Denies GI cramping, Reports dysphagia, Denies excessive flatus, Denies early satiety, Reports heartburn, Reports diarrhea, Denies nausea, Denies odynophagia, Denies vomiting and Denies hematemesis Skin/Breast Denies pruritus, Denies lesions, Denies rash and Denies jaundice Neuro Reports Normal hearing present and Denies Abnormal speech present Endo Denies fatigue Aller/Immun Denies throat swelling and Denies tongue swelling Physical Exam Vital Signs: Last Vital Signs Pulse 89 05/14/23 14:34 BP 131/73 05/14/23 14:34 BMI result Body Mass Index 34.4 Const General: cooperative, no acute distress, well developed and well groomed Nutritional Appearance: well nourished and obese Orientation/consciousness: oriented to person, oriented to place and oriented to time Limitations: language barrier HEENT Head: Yes normocephalic and Yes atraumatic Eyes General: appearance normal, both eyes and all related structures Pupils: Equal, round and reactive pupils present Neck Neck: Yes normal visual inspection and Yes no lymphadenopathy Thyroid: Thyroid normal Resp Effort & Inspection: normal respiratory effort and able to speak in complete sentences Auscultation: clear to auscultation bilaterally Cardio Rate: regular rate Rhythm: regular rhythm Heart sounds: Normal, physiologic split S2 sound present Peripheral pulses: radial pulses present and posterior tibial pulses present GI Inspection: No distended, Yes Abdominal panniculus present and Yes obesity Palpation (GI): Soft to palpation, nontender, no guarding, not rigid and No hepatosplenomegaly present Percussion: Yes normal to percussion Auscultation: normal bowel sounds Rectal Exam - Female: deferred Skin General skin exam: no rashes or lesions noted, turgor normal, skin not dry, no jaundice, No spider nevi and no striae Rashes: no rashes Nails: normal Neuro General: oriented to person, oriented to place and oriented to time Cranial nerves: Yes Equal, round and reactive pupils present and Yes Normal hearing present Speech: No Abnormal speech present Extrem General: Yes normal to inspection, No clubbing, No cyanosis and No edema Psych Appearance: grossly normal and well kempt Mental Status: mental status grossly normal Speech and movement: Normal speech and movement present Affect: normal affect Attitude: cooperative Thought process: Normal thought process present and not confabulating Thought content: Normal thought content present Insight: Limited insight present (Psych) Judgement: Limited judgement present (Psych) Assessment & Plan Assessment & Plan (1) Irritable bowel syndrome with both constipation and diarrhea: Code(s): K58.2 - Mixed irritable bowel syndrome Plan: Filipino #[id number] She is here with her BREWERY CELLAR WORKER who is supportive. She says her swallowing has improved since she started taking the protonix. We reviewed the barium swallow which is unrevealing for any severe pathology. She says that she had a date for her EGD/colonoscopy but it was cancelled r/t high blood pressure. BUT she did NOT take her BP medications the morning of the procedure and I instruct her that the SHOULD take them the morning of the procedure. Again, she is overdue for colonoscopy r/t TA in 2014. She is not having any problems with her stooling. ROV 6 mos and of course after the EGD/colonoscopy. (2) Upper abdominal pain: Code(s): R10.10 - Upper abdominal pain, unspecified (3) Dysphagia: Code(s): R13.10 - Dysphagia, unspecified (4) GERD (gastroesophageal reflux disease): Code(s): K21.9 - Gastro-esophageal reflux disease without esophagitis (5) Gallstones: Code(s): K80.20 - Calculus of gallbladder without cholecystitis without obstruction (6) Tubular adenoma of colon: Comment: 2014 scope = TA Code(s): D12.6 - Benign neoplasm of colon, unspecified Orders: Orders EGD/[place] Combo - GI Use Only 05/14/23 R13.10 - Dysphagia, unspecified, D12.6 - Benign neoplasm of colon, unspecified Medications: New pantoprazole 40 mg PO DAILY 30 tabs 6RF Changed From psyllium husk 0.8 grams (2 x 0.4 gram) PO BID 60 caps 6RF K58.2 - Mixed irritable bowel syndrome To psyllium husk (Daily Fiber) 0.8 grams (2 x 0.4 gram) PO BID 60 caps 6RF K58.2 - Mixed irritable bowel syndrome Refilled peg 3350-electrolytes 236-22.74-6.74 -5.86 gram Refer to prep instructions given/ mailed to you from GI OFFICE. until fecal effluent is clear 240 mL PO Q10M 4,000 mL 0RF Coding Level of Care Code Est Pt Level 3 (31844) Diagnoses Irritable bowel syndrome with both constipation and diarrhea K58.2 Upper abdominal pain R10.10 Dysphagia R13.10 GERD (gastroesophageal reflux disease) K21.9 Gallstones K80.20 Tubular adenoma of colon D12.6
[2023-05-14 14:34] VITALS: BP 131/73; PULSE 89; BMI 34.4
== END 2023-05-14 15:21 | disposition home or self-care (01) ==
PROVIDERS: PCP Nurse Practitioner Family; Visit Provider Nurse Practitioner
DX: K58.2 Mixed irritable bowel syndrome (principal); R10.10 Upper abdominal pain, unspecified; R13.10 Dysphagia, unspecified; K21.9 Gastro-esophageal reflux disease without esophagitis; K80.20 Calculus of gallbladder without cholecystitis without obstruction; D12.6 Benign neoplasm of colon, unspecified
CPT/HCPCS: 99213

== ENCOUNTER → 2023-05-14 13:54 | Outpatient (BNVA) | payer MEDICARE, MEDICAID, SELFPAY | PROVIDERS: PCP Nurse Practitioner Family; Visit Provider Nurse Practitioner | DX: R13.10 Dysphagia, unspecified (principal); K80.20 Calculus of gallbladder without cholecystitis without obstruction; K58.2 Mixed irritable bowel syndrome; D12.6 Benign neoplasm of colon, unspecified | CPT/HCPCS: 99212 ==

== ENCOUNTER 2023-07-31 07:42 | Day surgery (SDC) | payer MEDICARE, MEDICAID, SELFPAY ==
[2023-07-29 14:09] VITALS: BMI 34.4
--- NOTE | 2023-07-30 09:48 | P.CONAN_ITS ---
Documented by User: Allison Zhou NP 07/30/23 09:51 HPI - Anesthesia Eval Consult details Narrative: 68yo F for Upper Endoscopy and Colonoscopy Follows Dr Posey for Asthma-COPD, pulm htn, ANNE MARIE - Last seen 04/2023. Stable copd. Does not use cpap. ct for pulm nodule f/u pending. [facility] Active Problems Active Problems: All Active Problems (Updated 07/29/23 @ 13:57 by Saniya Springer RN) Irritable bowel syndrome with both constipation and diarrhea (Acute) ANNE MARIE (obstructive sleep apnea) (Acute) Gallstones (Acute) Dyspnea on exertion (Acute) Upper abdominal pain (Acute) Dysphagia (Acute) Pre-op examination (Acute) Tubular adenoma of colon (Acute) GERD (gastroesophageal reflux disease) (Acute) Osteoarthritis of hip (Acute) Chronic low back pain (Acute) Gallstones (Acute) Smoker (Acute) Schizophrenia (Acute) Pulmonary nodules (Acute) Asthma-COPD overlap syndrome (Acute) Asthma exacerbation (Acute) Chronic sinusitis (Acute) Past Medical History Medical History Marijuana use Alcohol abuse Pre-diabetes High cholesterol Hypertension Chronic sinusitis HLD (hyperlipidemia) Asthma Family History Family History Brother Mouth cancer Surgical History Surgical History H/O colonoscopy Social History Social History Alcohol intake: former Patient Tobacco Use Status: Former Tobacco user Quit Date: 2017 Use of substances other than those prescribed or required for medical reasons: No Advance Directives: No Advance Directives Information Provided: Yes service: No Current occupational status: disabled Meds Allergies Allergy/AdvReac Type Severity Reaction Status Date / Time No Known Allergies Allergy Verified 05/14/23 14:34 [No Known Allergies*] Home Medications Medication Instructions Recorded Confirmed Last Taken Type clonazepam 0.5 mg tablet 0.5 mg PO DAILY 11/14/20 11/14/20 Unknown History melatonin 5 mg tablet 5 mg PO BEDTIME 11/14/20 11/14/20 Unknown History fluticasone propionate 50 1 spray intranasal BID 09/14/21 Unknown History mcg/actuation nasal spray,suspension mirtazapine 30 mg tablet 30 mg PO BEDTIME 09/14/21 Unknown History montelukast 10 mg tablet 10 mg PO DAILY 09/14/21 Unknown History olanzapine 20 mg tablet 20 mg PO BEDTIME 09/14/21 Unknown History simvastatin 40 mg tablet 40 mg PO BEDTIME 09/14/21 Unknown History acetaminophen 650 mg 1,300 mg PO Q8H PRN 05/29/22 Unknown History tablet,extended release calcium carbonate 600 mg-vitamin 1 tab PO BID 05/29/22 Unknown History D3 10 mcg (400 unit) tablet cetirizine 10 mg tablet 10 mg PO DAILY 05/29/22 Unknown History hydroxyzine HCl 50 mg tablet 50 mg PO BEDTIME 05/29/22 Unknown History ketotifen fumarate 0.025 % (0.035 1 drp ophthalmic (eye) BID itch 05/29/22 Unknown History %) eye drops losartan 25 mg tablet 25 mg PO DAILY 05/29/22 Unknown History prazosin 5 mg capsule 5 mg PO BEDTIME 04/17/23 Unknown History blood pressure test kit-large #1 ea 05/14/23 Unknown History eszopiclone 3 mg tablet 3 mg PO BEDTIME 05/14/23 Unknown History Exam Exam Date and Time: July 30, 2023 0948 Height,Weight and Vital Signs: Height 5 ft 3 in Weight 87.997 kg Pertinent Lab Results Pertinent Lab Results: Laboratory Tests 10/04/22 10/04/22 21:07 21:07 WBC 13.7 H Hgb 12.3 Hct 37.1 Plt Count 418 H Sodium 142 Potassium 3.8 Chloride 106 Carbon Dioxide 28 BUN 12 Creatinine 1.00 Narrative Narrative: EKG 10/2022 Vent. Rate : 086 BPM ? ? Atrial Rate : 086 BPM ?? P-R Int : 138 ms? QRS Dur : 080 ms ? ? QT Int : 348 ms ? ? ? P-R-T Axes : 061 028 039 degrees ?? QTc Int : 416 ms ? Sinus rhythm with Premature atrial complexes Nonspecific T wave abnormality Abnormal ECG When compared with ECG of 12-NOV-2020 17:07, Premature atrial complexes are now Present Nonspecific T wave abnormality now evident in Anterior leads ECHO 09/2022 Conclusions: - Normal left ventricular size and systolic function. There is ? mildly increased left ventricular wall thickness.? The visually? estimated ejection fraction is between 55-60%. ? - E/E prime ratio is between 8 and 15 consistent with? indeterminate filling pressures. ? - Normal right ventricular cavity size and systolic function.? ? - The left atrium is likely dilated.? The right atrium is normal in size. ? - There is mild tricuspid valve regurgitation.? The right? ventricular systolic pressure is 39 mmHg.? Normal right atrial ? pressure.? Mild pulmonary hypertension is present. ?? Assessment and Plan Assessment Anesthesia Assessment: Chart Reviewed Documented by User: Janice Burton MD 07/31/23 12:12 [facility] Active Problems Active Problems: All Active Problems (Updated 07/31/23 @ 09:15 by Janice uBrton MD) Irritable bowel syndrome with both constipation and diarrhea (Acute) ANNE MARIE (obstructive sleep apnea) (Acute) Gallstones (Acute) Dyspnea on exertion (Acute) Upper abdominal pain (Acute) Dysphagia (Acute) Pre-op examination (Acute) Tubular adenoma of colon (Acute) GERD (gastroesophageal reflux disease) (Acute) Osteoarthritis of hip (Acute) Chronic low back pain (Acute) Gallstones (Acute) Smoker (Acute)- patient states quit smoking 5 years ago Schizophrenia (Acute) Pulmonary nodules (Acute) Asthma-COPD overlap syndrome (Acute) Asthma exacerbation (Acute) Chronic sinusitis (Acute) Pulmonary HTN Past Medical History Medical History Marijuana use Alcohol abuse Pre-diabetes High cholesterol Hypertension Chronic sinusitis HLD (hyperlipidemia) Asthma Family History Family History Brother Mouth cancer Family history of problems with anesthesia: No Surgical History Surgical History H/O colonoscopy History of Problems with Anesthesia: No Social History Social History Alcohol intake: former Patient Tobacco Use Status: Former Tobacco user Quit Date: 2017 Use of substances other than those prescribed or required for medical reasons: No Advance Directives: No Advance Directives Information Provided: Yes service: No Current occupational status: disabled Meds Allergies Allergy/AdvReac Type Severity Reaction Status Date / Time No Known Allergies Allergy Verified 05/14/23 14:34 [No Known Allergies*] Home Medications Medication Instructions Recorded Confirmed Last Taken Type clonazepam 0.5 mg tablet 0.5 mg PO DAILY 11/14/20 11/14/20 Unknown History melatonin 5 mg tablet 5 mg PO BEDTIME 11/14/20 11/14/20 Unknown History fluticasone propionate 50 1 spray intranasal BID 09/14/21 Unknown History mcg/actuation nasal spray,suspension mirtazapine 30 mg tablet 30 mg PO BEDTIME 09/14/21 Unknown History montelukast 10 mg tablet 10 mg PO DAILY 09/14/21 Unknown History olanzapine 20 mg tablet 20 mg PO BEDTIME 09/14/21 Unknown History simvastatin 40 mg tablet 40 mg PO BEDTIME 09/14/21 Unknown History acetaminophen 650 mg 1,300 mg PO Q8H PRN 05/29/22 Unknown History tablet,extended release calcium carbonate 600 mg-vitamin 1 tab PO BID 05/29/22 Unknown History D3 10 mcg (400 unit) tablet cetirizine 10 mg tablet 10 mg PO DAILY 05/29/22 Unknown History hydroxyzine HCl 50 mg tablet 50 mg PO BEDTIME 05/29/22 Unknown History ketotifen fumarate 0.025 % (0.035 1 drp ophthalmic (eye) BID itch 05/29/22 Unknown History %) eye drops losartan 25 mg tablet 25 mg PO DAILY 05/29/22 Unknown History prazosin 5 mg capsule 5 mg PO BEDTIME 04/17/23 Unknown History blood pressure test kit-large #1 ea 05/14/23 Unknown History eszopiclone 3 mg tablet 3 mg PO BEDTIME 05/14/23 Unknown History Exam Height,Weight and Vital Signs: Height 5 ft 3 in Weight 87.997 kg Vital Signs Temp Pulse Resp BP Pulse Ox O2 Del Method 98.4 F 93 18 137/72 96 Room Air 07/31/23 08:17 07/31/23 08:17 07/31/23 08:17 07/31/23 08:17 07/31/23 08:17 07/31/23 08:17 Airway Mallampati Class: II TM Dist: >3cm Neck ROM: Full Loose/Missing/Broken Teeth: Yes (Edentulous) Heart: RRR Lungs: Decreased air entry + wheeze left side. Patient states lungs feel tight - has not been using inhalers because ran out Other: Will order resoiratory treatment Assessment and Plan Assessment Anesthesia Assessment: Anesthesia Plan Discussed Final Anesthetic Review Family History of Problems with Anesthesia: No History of Problems with Anesthesia: No NPO: Yes ASA Class: III Final Preanesthetic Review: No Changes in Pt Med Stat, Meds/Allgs Chart Reviewed, Consent Obtained/Reviewed and Anes Risks/Benef Reviewed Patient Risk: Intermediate Procedure Risk: Low Assessment/Block/Sedation in SS: Assess/Block/Sedation-SS Anesthetic Plan Anesthetic Plan: MAC: Disposition: Standard PACU
[2023-07-31 08:15] VITALS: BMI 35.2
[2023-07-31 08:17] VITALS: BP 137/72; PULSE 93; RESP 18; TEMP 36.9; O2SAT 96
[2023-07-31] MEDS: Lactated Ringers 1,000 ML 100 ML IVCONT (08:25)
--- NOTE | 2023-07-31 09:10 | MHC.SHP ---
Pre-Procedural Eval Section A Date of Service: 07/31/23 Section B Chief Complaint: Dysphagia, Mixed irritable bowel syndrome Relevant Family History (Specify if Yes): No Relevant Social History: None Present Medications: see Short Stay Collaborative assessment Medical History: Significant History (Marijuana use Alcohol abuse Pre-diabetes High cholesterol Hypertension Chronic sinusitis HLD (hyperlipidemia) Asthma) History of Previous Operations: Relevant previous surgery/procedure and date(s) (H/O colonoscopy) Allergies: Allergies Allergy/AdvReac Type Severity Reaction Status Date / Time No Known Allergies Allergy Verified 05/14/23 14:34 [No Known Allergies*] Review of Systems Sugical H&P ROS: Negative: Constitution, Cardiovascular, Respiratory, Neurological, Psychiatric, Hem-Onc, Allergic/Immunologic, Gastrointestinal, Genitourinary, Musculoskeletal, Integumentary, Endocrine and Eyes/Ears/Nose/Throat Exam Surgical H&P Exam: Normal: HEENT, Normal: Heart, Normal: Lungs, Normal: Extremities, Normal: Abdomen, Normal: Skin and Normal: Neurological Plan Diagnosis/Plan: Unchanged I have reviewed the history and physical and performed a pertinent physical examination on my patient. No changes have occurred unless specified. Time Spent With Patient Time: Total time managing care of this patient today ____ minutes.
--- NOTE | 2023-07-31 09:12 | W.PM.OPN ---
Operative Note Operative Note Date of Service: 07/31/23 Narrative: Operative Information Procedure Description: EGD, Colonoscopy Indication: dysphagia, hx of colon polyp Anesthesia: MAC FLEXIBLE TRANSORAL UPPER GASTROINTESTINAL ENDOSCOPY AND COLONOSCOPY PROCEDURE NOTE UPPER ENDOSCOPY Consent: Indications for the procedure and potential complications of bleeding, perforation, reaction to medications and missed diagnosis were discussed with the patient and informed consent was obtained. Instrument: Olympus GIF H 190 J mid size upper endoscope Monitoring: Vital signs and clinical assessment, continuous EKG monitoring, Pulse oximetry, Carbon Dioxide monitoring and blood pressure monitoring were done throughout the procedure. Procedure: The patient was placed in the left lateral decubitis position and pre-procedure medications were administered and a bite block was placed. The endoscope was inserted into the mouth and advanced under direct vision to the third part of duodenum. A careful inspection was made as the upper endoscope was withdrawn including a retroflexed examination of the proximal stomach; Findings and interventions are described below. Findings: Larynx:normal Esophagus: GE junction at 37 cm, diaphragm hiatus at 37 cm, bx taken from GEJ and distal esophagus, balloon dilation done to 20 mm at lower and upper esophagus with superficial tear noted in upper esophagus Stomach: Patchy erythema. Biopsies were obtained. Grade 2 flap valve on retroflexed examination of the cardia. Duodenum: Normal bulb and descending duodenum, Intervention: Biopsies as noted above, balloon dilation COLONOSCOPY Instrument: Olympus variable stiffness pediatric scope 190L Colonoscopy Monitoring: Vital signs and clinical assessment, continuous EKG monitoring, Pulse oximetry, Carbon Dioxide monitoring and blood pressure monitoring were done throughout the procedure. Colon withdrawal time was 12 minutes. Procedure: The patient was placed in the left lateral decubitis position and pre-procedure medications were administered. After a digital rectal examination of the ano-rectum, the video colonoscope was inserted into the rectum and advanced through the colon to the cecum/TI. The colonoscope was slowly withdrawn in a retrograde panoramic fashion and the colon mucosa was carefully examined including a retroflexed view of the rectum. Findings and interventions are described below. Procedure Difficulty:moderate due to looping and breathing rapidly Findings: Terminal Ileum-not intubated Cecum:normal Ascending Colon: 12 mm sessile polyp removed with cold snare Transverse Colon -normal Descending Colon:normal Sigmoid Colon: normal Rectum: Retroflexion with medium sized internal hemorrhoids, grade I, 10 mm sessile polyp removed with cold snare Anorectum - normal Colon preparation: [place] Bowel Preparation Scale Right colon; 2 Transverse colon: 2 Left colon; 2 (0 = Unprepared colon segment with mucosa not seen due to solid stool that cannot be cleared. 1 = Portion of mucosa of the colon segment seen, but other areas of the colon segment not well seen due to staining, residual stool and/or opaque liquid. 2 = Minor amount of residual staining, small fragments of stool and/or opaque liquid, but mucosa of colon segment seen well. 3 = Entire mucosa of colon segment seen well with no residual staining, small fragments of stool or opaque liquid) Impression and Post Procedure Diagnosis: Endoscopy Findings: esophgeal stricture gastritis Colonoscopy Findings: polyps internal hemorrhoids Plan: Await Pathology results Repeat Colonoscopy in 4-5 years or earlier if clinically indicated High fiber diet leaflet avoid straining at stool, epsom salts and sitz bath, anusol supps or cream magic mouthwash for 1 week check compliance with PPI Above findings were reviewed with the patient and relevant handouts were provided if indicated.
[2023-07-31] MEDS: Albuterol Sulfate (0.083%) 2.5 MG/3 ML VIAL.NEB INHALE (09:52)
[2023-07-31 09:53] VITALS: PULSE 81; O2SAT 94
[2023-07-31 11:12] VITALS: BP 85/59; PULSE 116; RESP 22; TEMP 36.5; O2SAT 100
[2023-07-31 11:27] VITALS: BP 99/62; PULSE 124; RESP 18; O2SAT 91
[2023-07-31] MEDS: Acetaminophen 325 MG TABLET 975 MG PO (11:37)
[2023-07-31] MEDS: Mag&Al/Sim/Diphenhyd/Lidocaine 10 ML ORAL.SUSP PO (11:38)
[2023-07-31 11:42] VITALS: BP 118/81; PULSE 106; RESP 16; O2SAT 94
== END 2023-07-31 12:25 | disposition home or self-care (01) ==
PROVIDERS: PCP Nurse Practitioner Family; Visit Provider Internal Medicine Gastroenterology
PROC: (CPT 45385; principal; 2023-07-31 09:10)
DX: Z12.11 Encounter for screening for malignant neoplasm of colon (principal); Z86.010 Personal history of colon polyps; D12.2 Benign neoplasm of ascending colon; K62.1 Rectal polyp; K64.0 First degree hemorrhoids; K58.2 Mixed irritable bowel syndrome; R13.10 Dysphagia, unspecified; K29.50 Unspecified chronic gastritis without bleeding; K22.2 Esophageal obstruction; K44.9 Diaphragmatic hernia without obstruction or gangrene; I10 Essential (primary) hypertension; E78.00 Pure hypercholesterolemia, unspecified; R73.03 Prediabetes; J45.909 Unspecified asthma, uncomplicated; F12.90 Cannabis use, unspecified, uncomplicated; F10.10 Alcohol abuse, uncomplicated; Z79.51 Long term (current) use of inhaled steroids; Z79.899 Other long term (current) drug therapy; Z87.891 Personal history of nicotine dependence
CPT/HCPCS: 45385; 43249; 43239; 88305; 88342; C1726; J2765; J3010

== ENCOUNTER → 2023-07-31 07:42 | Outpatient (BNV) | payer MEDICARE, MEDICAID, SELFPAY | PROVIDERS: PCP Nurse Practitioner Family; Visit Provider Internal Medicine Gastroenterology | DX: Z12.11 Encounter for screening for malignant neoplasm of colon (principal); Z86.010 Personal history of colon polyps; R13.10 Dysphagia, unspecified; K29.70 Gastritis, unspecified, without bleeding; K22.2 Esophageal obstruction; D12.2 Benign neoplasm of ascending colon; D12.8 Benign neoplasm of rectum; K64.0 First degree hemorrhoids | CPT/HCPCS: 43249; 45385 ==

== ENCOUNTER 2023-08-14 10:03 | Outpatient (AMB) | payer MEDICARE, MEDICAID, SELFPAY ==
--- NOTE | 2023-08-14 10:06 | MHC.OFFVIS ---
Intake Vital Signs 08/14/23 10:07 Height 5 ft 3 in Weight 194 lb 0.108 oz BMI 34.4 BP 147/80 H Blood Pressure Location Lt brachial Position Sitting Pulse 98 Intake Visit Reasons: S/p egd/colon-Reyes Intake Note: Lauren presents in the office today for follow up of EGD and colonoscopy. CC: Patient reports water came out of her anus. Denies other GI symptoms today. Computer Recycling Worker Required: Yes Computer Recycling Worker Name: daughter Accompanied by: Self / Same As Patient Allergies No Known Allergies [No Known Allergies*] Allergy (Verified 05/14/23 14:34) HPI S/p egd/colon-Reyes HPI Details Assessment & Plan (1) Irritable bowel syndrome with both constipation and diarrhea: Code(s): K58.2 - Mixed irritable bowel syndrome Plan: Frisian #[id number] She is here with her RN CARDIOVASCULAR who is supportive. She says her swallowing has improved since she started taking the protonix. We reviewed the barium swallow which is unrevealing for any severe pathology. She says that she had a date for her EGD/colonoscopy but it was cancelled r/t high blood pressure. BUT she did NOT take her BP medications the morning of the procedure and I instruct her that the SHOULD take them the morning of the procedure. Again, she is overdue for colonoscopy r/t TA in 2014. She is not having any problems with her stooling. ROV 6 mos and of course after the EGD/colonoscopy. (2) Upper abdominal pain: Code(s): R10.10 - Upper abdominal pain, unspecified (3) Dysphagia: Code(s): R13.10 - Dysphagia, unspecified (4) GERD (gastroesophageal reflux disease): Code(s): K21.9 - Gastro-esophageal reflux disease without esophagitis (5) Gallstones: Code(s): K80.20 - Calculus of gallbladder without cholecystitis without obstruction (6) Tubular adenoma of colon: Comment: 2014 scope = TA Code(s): D12.6 - Benign neoplasm of colon, unspecified Orders: Orders EGD/[place] Combo - G I Use Only 05/14/23 R13.10 - Dysphagia , unspecified, D12 .6 - Benign neopla sm of colon, unspe cified Medications: New pantoprazole 40 mg PO DAILY 30 tabs 6RF Changed From psyllium husk 0.8 grams (2 x 0.4 gram) PO BID 60 c aps 6RF K58.2 - Mixed irri table bowel syndro me To psyllium husk (Irena ly Fiber) 0.8 grams (2 x 0.4 gram) PO BID 60 c aps 6RF K58.2 - Mixed irri table bowel syndro me Refilled peg 3350-electroly laila 236-22.74-6.74 -5.86 gram Ref er to prep instruc tions given/ kb d to you from GI O FFICE. until fecal effluent is clear 240 mL PO Q10M 4,0 00 mL 0RF EGD/COLONOSCOPY 07/31/23 Findings: Larynx:normal Esophagus: GE junction at 37 cm, diaphragm hiatus at 37 cm, bx taken from GEJ and distal esophagus, balloon dilation done to 20 mm at lower and upper esophagus with superficial tear noted in upper esophagus Stomach: Patchy erythema. Biopsies were obtained. Grade 2 flap valve on retroflexed examination of the cardia. Duodenum: Normal bulb and descending duodenum, Findings: Terminal Ileum-not intubated Cecum:normal Ascending Colon: 12 mm sessile polyp removed with cold snare Transverse Colon -normal Descending Colon:normal Sigmoid Colon: normal Rectum: Retroflexion with medium sized internal hemorrhoids, grade I, 10 mm sessile polyp removed with cold snare Anorectum - normal Impression and Post Procedure Diagnosis: Endoscopy Findings: esophgeal stricture gastritis Colonoscopy Findings: polyps internal hemorrhoids Plan: Await Pathology results Repeat Colonoscopy in 4-5 years or earlier if clinically indicated High fiber diet leaflet avoid straining at stool, epsom salts and sitz bath, anusol supps or cream magic mouthwash for 1 week check compliance with PPI BIOPSY Received: 07/31/23 Diagnosis A. Stomach, biopsy: Gastric antral and body mucosa with mild chronic gastritis without activity; negative for H pylori, intestinal metaplasia and dysplasia. B. Gastroesophageal junction, biopsy: Columnar mucosa with mild chronic inflammation and focal dilated glands; negative for intestinal metaplasia and dysplasia. C. Esophagus, distal, biopsy: Squamous mucosa with no specific change; no subepithelial tissue present for evaluation. D. Colon, ascending, polyp: Tubular adenoma; negative for high-grade dysplasia and carcinoma. E. Colon, rectal polyp: Consistent with hyperplastic polyp. ? TODAY'S VISIT Greek #Branden William She is here today with her dtr who is supportive. The colonoscopy needs to be repeated in 5 years due to 1 TA removed.. She had one episode of diarrhea after the procedure, but it was isolated. Now she is back to being constipated. She is taking her fiber The procedure was well tolerated. The results were explained and the patient is agreeable to the follow-up interval as stated. The bowel pattern has returned to normal. Education was provided to tell any 1st degree relatives about their findings to be sure that they are screened by age 45. Educated that they will be put on a recall list when it is time for their repeat scope but should they move out of state or away from the hospital they will need to remember along with their primary to repeat the procedure in a timely fashion to avoid any adverse complications. Her dysphagia is better with the dilation, but not completely resolved. However, the problem now is only with liquids in the oral phase. I educate her that this will happen as we age, and she needs to slow down and use care with swallowing and drink more slowly. If needed we can consider Speech Therapy evaluation/teaching. Because there was still some active inflammation of the esophagus on the biopsy, I am adding famotidine qhs to her protonix qam. She is only moving her bowels 3 times a week and has feelings of incomplete evacuation and a lot of gasses. I will start her on senna and titrate to effect or s/e. The stool is not very hard, so no colace at this time. ROV 4 weeks. [facility] Medical History (Updated 08/14/23 @ 10:45 by DONNIE Carty) Marijuana use Alcohol abuse Pre-diabetes High cholesterol Hypertension Chronic sinusitis HLD (hyperlipidemia) Asthma Surgical History (Updated 08/14/23 @ 10:45 by DONNIE Carty) History of esophagogastroduodenoscopy (EGD) H/O colonoscopy Family History Brother Mouth cancer Social History Alcohol intake: former Patient Tobacco Use Status: Former Tobacco user Quit Date: 2017 service: No Current occupational status: disabled Review of Systems Const Denies fatigue, Denies fever(s), Denies night sweats, Denies poor appetite and Denies weight loss ENT Reports Normal hearing present, Denies dental pain, Reports dysphagia, Denies hearing loss, Denies mouth pain, Denies odynophagia, Denies throat swelling and Denies tongue swelling Card Reports no additional complaints Resp Reports no additional complaints GI Denies abdominal pain, Denies melena, Denies bloating, Denies hematochezia, Reports constipation, Denies GI cramping, Reports dysphagia, Denies excessive flatus, Denies early satiety, Reports heartburn, Denies diarrhea, Denies nausea, Denies odynophagia, Denies vomiting and Denies hematemesis Skin/Breast Denies pruritus, Denies lesions, Denies rash and Denies jaundice Neuro Reports Normal hearing present and Denies Abnormal speech present Endo Denies fatigue Aller/Immun Denies throat swelling and Denies tongue swelling Physical Exam Vital Signs: Last Vital Signs Pulse 98 08/14/23 10:07 BP 147/80 H 08/14/23 10:07 BMI result Body Mass Index 34.4 Const General: cooperative, no acute distress, well developed and well groomed Nutritional Appearance: well nourished and obese Orientation/consciousness: oriented to person, oriented to place and oriented to time Limitations: language barrier and other limitations (psych) HEENT Head: Yes normocephalic and Yes atraumatic Eyes General: appearance normal, both eyes and all related structures Pupils: Equal, round and reactive pupils present Neck Neck: Yes normal visual inspection and Yes no lymphadenopathy Thyroid: Thyroid normal Resp Effort & Inspection: normal respiratory effort and able to speak in complete sentences Auscultation: clear to auscultation bilaterally Cardio Rate: regular rate Rhythm: regular rhythm Heart sounds: Normal, physiologic split S2 sound present Peripheral pulses: radial pulses present and posterior tibial pulses present GI Inspection: No distended, Yes Abdominal panniculus present and Yes obesity Palpation (GI): Soft to palpation, nontender, no guarding, not rigid and No hepatosplenomegaly present Percussion: Yes normal to percussion Auscultation: normal bowel sounds Rectal Exam - Female: deferred Skin General skin exam: no rashes or lesions noted, turgor normal, skin not dry, no jaundice, No spider nevi and no striae Rashes: no rashes Nails: normal Neuro General: oriented to person, oriented to place and oriented to time Cranial nerves: Yes Equal, round and reactive pupils present and Yes Normal hearing present Speech: No Abnormal speech present Extrem General: Yes normal to inspection, No clubbing, No cyanosis and No edema Psych Appearance: grossly normal and well kempt Mental Status: other Speech and movement: Slowed speech present (Psych) Affect: normal affect Attitude: cooperative Thought process: not confabulating and Loose association thought process present Thought content: Normal thought content present Insight: Limited insight present (Psych) and Poor insight present (Psych) Judgement: Limited judgement present (Psych) and Poor judgement present (Psych) Results Reviewed Results Reviewed: EGD/COLONOSCOPY 07/31/23 Findings: Larynx:normal Esophagus: GE junction at 37 cm, diaphragm hiatus at 37 cm, bx taken from GEJ and distal esophagus, balloon dilation done to 20 mm at lower and upper esophagus with superficial tear noted in upper esophagus Stomach: Patchy erythema. Biopsies were obtained. Grade 2 flap valve on retroflexed examination of the cardia. Duodenum: Normal bulb and descending duodenum, Findings: Terminal Ileum-not intubated Cecum:normal Ascending Colon: 12 mm sessile polyp removed with cold snare Transverse Colon -normal Descending Colon:normal Sigmoid Colon: normal Rectum: Retroflexion with medium sized internal hemorrhoids, grade I, 10 mm sessile polyp removed with cold snare Anorectum - normal Impression and Post Procedure Diagnosis: Endoscopy Findings: esophgeal stricture gastritis Colonoscopy Findings: polyps internal hemorrhoids Plan: Await Pathology results Repeat Colonoscopy in 4-5 years or earlier if clinically indicated High fiber diet leaflet avoid straining at stool, epsom salts and sitz bath, anusol supps or cream magic mouthwash for 1 week check compliance with PPI BIOPSY Received: 07/31/23 Diagnosis A. Stomach, biopsy: Gastric antral and body mucosa with mild chronic gastritis without activity; negative for H pylori, intestinal metaplasia and dysplasia. B. Gastroesophageal junction, biopsy: Columnar mucosa with mild chronic inflammation and focal dilated glands; negative for intestinal metaplasia and dysplasia. C. Esophagus, distal, biopsy: Squamous mucosa with no specific change; no subepithelial tissue present for evaluation. D. Colon, ascending, polyp: Tubular adenoma; negative for high-grade dysplasia and carcinoma. E. Colon, rectal polyp: Consistent with hyperplastic polyp. Assessment & Plan Assessment & Plan (1) GERD with esophagitis: Comment: 2022 biopsy on going chronic irritation. Code(s): K21.00 - Gastro-esophageal reflux disease with esophagitis, without bleeding Plan: Greek #Branden William She is here today with her dtr who is supportive. The colonoscopy needs to be repeated in 5 years due to 1 TA removed.. She had one episode of diarrhea after the procedure, but it was isolated. Now she is back to being constipated. She is taking her fiber The procedure was well tolerated. The results were explained and the patient is agreeable to the follow-up interval as stated. The bowel pattern has returned to normal. Education was provided to tell any 1st degree relatives about their findings to be sure that they are screened by age 45. Educated that they will be put on a recall list when it is time for their repeat scope but should they move out of state or away from the hospital they will need to remember along with their primary to repeat the procedure in a timely fashion to avoid any adverse complications. Her dysphagia is better with the dilation, but not completely resolved. However, the problem now is only with liquids in the oral phase. I educate her that this will happen as we age, and she needs to slow down and use care with swallowing and drink more slowly. If needed we can consider Speech Therapy evaluation/teaching. Because there was still some active inflammation of the esophagus on the biopsy, I am adding famotidine qhs to her protonix qam. She is only moving her bowels 3 times a week and has feelings of incomplete evacuation and a lot of gasses. I will start her on senna and titrate to effect or s/e. The stool is not very hard, so no colace at this time. ROV 4 weeks. (2) Irritable bowel syndrome with both constipation and diarrhea: Code(s): K58.2 - Mixed irritable bowel syndrome Medications: New sennosides (Senna Laxative) 17.2 mg (2 x 8.6 mg) PO BEDTIME 60 tabs 6RF K58.2 - Mixed irritable bowel syndrome famotidine (Pepcid) 40 mg PO BEDTIME 30 tabs 6RF K21.00 - Gastro-esophageal reflux disease with esophagitis, without bleeding Refilled pantoprazole 40 mg PO DAILY 30 tabs 6RF psyllium husk (Daily Fiber) 0.8 grams (2 x 0.4 gram) PO BID 60 caps 6RF K58.2 - Mixed irritable bowel syndrome Coding Level of Care Code Est Pt Level 4 (10855) Diagnoses GERD with esophagitis K21.00 Irritable bowel syndrome with both constipation and diarrhea K58.2
[2023-08-14 10:07] VITALS: BP 147/80; PULSE 98; BMI 34.4
== END 2023-08-14 10:46 | disposition home or self-care (01) ==
PROVIDERS: PCP Nurse Practitioner Family; Visit Provider Nurse Practitioner
DX: K21.00 Gastro-esophageal reflux disease with esophagitis, without bleeding (principal); K58.2 Mixed irritable bowel syndrome
CPT/HCPCS: 99214

== ENCOUNTER → 2023-08-14 10:03 | Outpatient (BNVA) | payer MEDICARE, MEDICAID, SELFPAY | PROVIDERS: PCP Nurse Practitioner Family; Visit Provider Nurse Practitioner | DX: K21.00 Gastro-esophageal reflux disease with esophagitis, without bleeding (principal); K29.70 Gastritis, unspecified, without bleeding; D12.2 Benign neoplasm of ascending colon; K62.1 Rectal polyp; K64.8 Other hemorrhoids; K58.2 Mixed irritable bowel syndrome; Z98.890 Other specified postprocedural states | CPT/HCPCS: 99212 ==

== ENCOUNTER 2023-08-22 13:16 | Outpatient (REF) | payer MEDICARE, MEDICAID, SELFPAY ==
--- NOTE | ~2023-08-22 | CT_ITS ---
EXAMINATION: CT CHEST WITHOUT CONTRAST CLINICAL INFORMATION: Pulmonary nodule. COMPARISON: CT chest 07/31/2022, 07/19/2021, 01/20/2018. TECHNIQUE: Multidetector volumetric CT imaging of the chest was done. Axial MIP volume rendering provided. Sagittal and coronal reformatted images were obtained. This CT examination was performed using dose optimization techniques as appropriate, variously including the following: *Automated exposure control *Adjustment of mA and/or kV according to patient size (this includes techniques or standardized protocols for targeted exams where dose is matched to indication/reason for exam; i.e. extremities or head) *Use of iterative reconstruction technique DLP: 287 mGy-cm FINDINGS: LUNGS: Calcified granulomas in the lower lobes. No follow-up imaging is recommended. Stable 4 mm nodule left upper lobe dating back to 07/19/2021. No follow-up imaging is recommended. No new suspicious nodule. No focal pneumonia. Mild scarring or atelectasis in the lingula. MEDIASTINUM: No adenopathy. No pericardial effusion. CORONARY ARTERY CALCIFICATION: Mild three-vessel coronary calcium. PLEURA: There is no pleural effusion. No pleural mass or thickening. AXILLA: No lymphadenopathy. UPPER ABDOMEN: Unremarkable. OSSEOUS STRUCTURES: Degenerative changes in the spine. CT/CT chest wo IV con IMPRESSION: Stable 4 mm left upper lobe pulmonary nodule compared to index study of 01/20/2018. No follow-up imaging is recommended as per Fleischner Society guidelines. Fleischner guidelines were followed.
== END 2023-08-22 13:17 | disposition home or self-care (01) ==
LOC: HO.CT 13:16
PROVIDERS: PCP Nurse Practitioner Family; Visit Provider Internal Medicine Pulmonary Disease
DX: R91.8 Other nonspecific abnormal finding of lung field (principal)
CPT/HCPCS: 71250

== ENCOUNTER 2023-08-29 14:36 | Outpatient (AMB) | payer MEDICARE, MEDICAID, SELFPAY ==
[2023-08-29 14:44] VITALS: BP 118/77; PULSE 85; O2SAT 96; BMI 34.0
--- NOTE | 2023-08-29 14:44 | A.OFFVIS_ITS ---
Intake Vital Signs 08/29/23 14:44 Height 5 ft 3 in Weight 191 lb 12.835 oz BMI 34.0 BP 118/77 Blood Pressure Location Lt brachial Position Sitting Pulse 85 Pulse Source Doppler Pulse Oximetry (%) 96 Oxygen Delivery Method Room Air Intake Visit Reasons: CT Follow Up Allergies No Known Allergies [No Known Allergies*] Allergy (Verified 08/29/23 14:46) HPI CT Follow Up HPI Details 68-year-old lady, 30+ pack-year smoker, quit 2018, followed for underlying mild to moderate asthma/COPD overlap syndrome pulmonary nodules.? She continues to use Trelegy, and albuterol MDI, with good baseline control.? Her orthopnea as well controlled on furosemide 40 mg daily. Today she complains of acute exacerbation symptomatic with wheezing and productive cough. [facility] Medical History (Updated 08/29/23 @ 15:06 by Og Posey MD) Marijuana use Alcohol abuse Pre-diabetes High cholesterol Hypertension Chronic sinusitis HLD (hyperlipidemia) Asthma Surgical History (Updated 08/14/23 @ 10:45 by DONNIE Carty) History of esophagogastroduodenoscopy (EGD) H/O colonoscopy Family History Brother Mouth cancer Social History (Reviewed 08/29/23 @ 14:47 by Estela Monroe COUNTS INCLUDE 234 BEDS AT THE [facility]) Alcohol intake: former Patient Tobacco Use Status: Former Tobacco user Quit Date: 2017 service: No Current occupational status: disabled Review of Systems Const Denies daytime sleepiness, Denies excessive sweating, Denies fatigue, Denies fever(s), Denies lethargy, Denies malaise, Denies night sweats, Denies snoring and Denies weight loss Eyes Denies blurry vision and Denies itchy eyes ENT Denies nasal congestion, Denies post nasal drip, Denies sinus pain, Denies sinus pressure and Denies other ( Thrush) Card Denies chest pain, Denies pedal edema, Denies dyspnea, Denies orthopnea and Denies paroxysmal nocturnal dyspnea Resp Reports cough, Denies hemoptysis, Reports excessive phlegm production, Denies dyspnea, Denies snoring and Reports wheezing GI Denies abdominal pain and Denies heartburn Musc Denies myalgias, Denies arthralgias and Denies joint swelling Skin/Breast Denies rash Neuro Denies memory loss and Denies seizure-like activity Psych Denies abnormal sleep pattern, Denies anxiety and Denies memory loss Endo Denies excessive sweating, Denies fatigue and Denies heat intolerance Angelo/Lymph Denies easy bruising Aller/Immun Denies itchy eyes, Denies seasonal rhinorrhea and Reports wheezing Physical Exam Vital Signs: Last Vital Signs Pulse 85 08/29/23 14:44 BP 118/77 08/29/23 14:44 Pulse Ox 96 08/29/23 14:44 Oxygen Delivery Method Room Air 08/29/23 14:44 BMI result Body Mass Index 34.0 Const General: no acute distress and alert Nutritional Appearance: not obese Orientation/consciousness: Other orientation findings ( oriented) HEENT Head: Yes atraumatic Eyes General: appearance normal, both eyes and all related structures Sclerae: sclerae normal EOM: EOMs intact bilaterally Neck Neck: Yes supple Lymphatic: no lymphadenopathy noted Resp Effort & Inspection: normal respiratory effort and no use of accessory muscles Auscultation: other (Poor bilateral air movement) Cardio Rate: regular rate Rhythm: regular rhythm Heart sounds: no gallops, no murmurs and no rubs Skin General skin exam: other ( warm) Extrem General: No clubbing, No cyanosis and No edema Assessment & Plan Assessment & Plan (1) Asthma-COPD overlap syndrome: Code(s): J44.9 - Chronic obstructive pulmonary disease, unspecified Plan: Baseline well controlled on Trelegy and albuterol MDI. Continue current regimen. Now with mild exacerbation, will treat with course of prednisone and azithromycin. (2) Pulmonary nodules: Code(s): R91.8 - Other nonspecific abnormal finding of lung field Plan: Results of follow-up CT chest from July of 2023 reviewed. Stable underlying pulmonary nodules. Continue with yearly screening. (3) Personal history of nicotine dependence: Code(s): Z87.891 - Personal history of nicotine dependence Orders: Orders CT lung screening 08/23/24 Z87.891 - Personal history of nicotine dependence Medications: New azithromycin For 250 mg dose pack: take 500 mg today (day 1), then 250 mg for 4 days (days 2-5) PO 6 tabs 0RF prednisone 40 mg (2 x 20 mg) PO DAILY 10 tabs 0RF 5 days Coding Level of Care Code Est Pt Level 4 (21448) Diagnoses Asthma-COPD overlap syndrome J44.9 Pulmonary nodules R91.8 Personal history of nicotine dependence Z87.891
== END 2023-08-29 15:01 | disposition home or self-care (01) ==
PROVIDERS: PCP Nurse Practitioner Family; Visit Provider Internal Medicine Pulmonary Disease
DX: J44.9 Chronic obstructive pulmonary disease, unspecified (principal); R91.8 Other nonspecific abnormal finding of lung field; Z87.891 Personal history of nicotine dependence
CPT/HCPCS: 99214

== ENCOUNTER → 2023-08-29 14:36 | Outpatient (BNVA) | payer MEDICARE, MEDICAID, SELFPAY | PROVIDERS: PCP Nurse Practitioner Family; Visit Provider Internal Medicine Pulmonary Disease | DX: J44.9 Chronic obstructive pulmonary disease, unspecified (principal); R91.8 Other nonspecific abnormal finding of lung field; Z87.891 Personal history of nicotine dependence | CPT/HCPCS: 99212 ==

== ENCOUNTER 2023-10-09 12:39 | Outpatient (AMB) | payer MEDICARE, MEDICAID, SELFPAY ==
--- NOTE | 2023-10-09 12:40 | A.OFFVIS_ITS ---
Intake Vital Signs 10/09/23 12:45 Height 5 ft 3 in Weight 187 lb 6.287 oz BMI 33.2 BP 154/88 H Blood Pressure Location Lt brachial Position Sitting Pulse 86 Intake Visit Reasons: 4 week follow up Intake Note: Patient returns to in office follow up of GERD. CC: Patient reports she chokes a log and has a lot of acid reflux and phlegm. She also c/o nausea, diarrhea, constipation and blood in stool. Digital Product Specialist Required: Yes Digital Product Specialist Name: Maryjo Accompanied by: Daughter Allergies No Known Allergies [No Known Allergies*] Allergy (Verified 08/29/23 14:46) HPI 4 week follow up HPI Details Assessment & Plan (1) GERD with esophagitis: Comment: 2022 biopsy on going chronic irritation. Code(s): K21.00 - Gastro-esophageal reflux disease with esophagitis, without bleeding Plan: [place] #Branden Live She is here today with her dtr who is supportive. The colonoscopy needs to be repeated in 5 years due to 1 TA removed.. She had one episode of diarrhea after the procedure, but it was isolated. Now she is back to being constipated. She is taking her fiber The procedure was well tolerated. The results were explained and the patient is agreeable to the follow-up interval as stated. The bowel pattern has returned to normal. Education was provided to tell any 1st degree relatives about their findings to be sure that they are screened by age 45. Educated that they will be put on a recall list when it is time for their repeat scope but should they move out of state or away from the hospital they will need to remember along with their primary to repeat the procedure in a timely fashion to avoid any adverse complications. Her dysphagia is better with the dilation, but not completely resolved. However, the problem now is only with liquids in the oral phase. I educate her that this will happen as we age, and she needs to slow down and use care with swallowing and drink more slowly. If needed we can consider Speech Therapy evaluation/teaching. Because there was still some active inflammation of the esophagus on the biopsy, I am adding famotidine qhs to her protonix qam. She is only moving her bowels 3 times a week and has feelings of incomplete evacuation and a lot of gasses. I will start her on senna and titrate to effect or s/e. The stool is not very hard, so no colace at this time. ROV 4 weeks. (2) Irritable bowel syndrome with both c onstipation and diarrhea: Code(s): K58.2 - Mixed irritable bowel syndrome Medications: New sennosides (Senna Laxative) 17.2 mg (2 x 8.6 m g) PO BEDTIME 60 t abs 6RF K58.2 - Mixed irri table bowel syndro me famotidine (Pepcid ) 40 mg PO BEDTIME 30 tabs 6RF K21.00 - Gastro-es ophageal reflux di sease with esophag itis, without blee ding Refilled pantoprazole 40 mg PO DAILY 30 tabs 6RF psyllium husk (Irena ly Fiber) 0.8 grams (2 x 0.4 gram) PO BID 60 c aps 6RF K58.2 - Mixed irri table bowel syndro me ? TODAY'S VISIT [place] #Maryjo Ga She is here with a female family member who is supportive. Her swallowing is some days good some bad. She did have residual problems with swallowing liquids. I ask if she needs to have another dilation, and she declines for now. She never received the famotidine or the senna, it was sent to the wrong pharmacy and I re direct it today. She continues on her pantoprazole in the morning and her fiber therapy as well. The patient c/o not wanting to have such frequent follow ups with me, I explain this will be extended. ROV 2 mos. [facility] Medical History (Updated 10/09/23 @ 12:42 by DONNIE Carty) Upper abdominal pain Pre-op examination Smoker Asthma exacerbation Marijuana use Alcohol abuse Pre-diabetes High cholesterol Hypertension Chronic sinusitis HLD (hyperlipidemia) Asthma Surgical History (Updated 08/14/23 @ 10:45 by DONNIE Carty) History of esophagogastroduodenoscopy (EGD) H/O colonoscopy Family History Brother Mouth cancer Social History Alcohol intake: former Patient Tobacco Use Status: Former Tobacco user Quit Date: 2017 service: No Current occupational status: disabled Review of Systems Const Denies fatigue, Denies fever(s), Denies night sweats, Denies poor appetite and Denies weight loss ENT Reports Normal hearing present, Denies dental pain, Reports dysphagia, Denies hearing loss, Denies mouth pain, Denies odynophagia, Denies throat swelling, Denies tongue swelling and Reports other (Dentition adequate) Card Reports no additional complaints Resp Reports no additional complaints GI Denies abdominal pain, Denies melena, Denies bloating, Denies hematochezia, Reports constipation, Denies GI cramping, Reports dysphagia, Denies excessive flatus, Denies early satiety, Reports heartburn, Denies diarrhea, Denies nausea, Denies odynophagia, Denies vomiting and Denies hematemesis Skin/Breast Denies pruritus, Denies lesions, Denies rash and Denies jaundice Neuro Reports Normal hearing present and Denies Abnormal speech present Endo Denies fatigue Aller/Immun Denies throat swelling and Denies tongue swelling Physical Exam Vital Signs: BMI result Body Mass Index 33.2 Const General: cooperative, no acute distress, well developed and well groomed Nutritional Appearance: well nourished and obese Orientation/consciousness: oriented to person, oriented to place and oriented to time Limitations: language barrier and other limitations (Intellectual delay) HEENT Head: Yes normocephalic and Yes atraumatic Eyes General: appearance normal, both eyes and all related structures Pupils: Equal, round and reactive pupils present Neck Neck: Yes normal visual inspection and Yes no lymphadenopathy Thyroid: Thyroid normal Resp Effort & Inspection: normal respiratory effort and able to speak in complete sentences Auscultation: clear to auscultation bilaterally Cardio Rate: regular rate Rhythm: regular rhythm Heart sounds: Normal, physiologic split S2 sound present Peripheral pulses: radial pulses present and posterior tibial pulses present GI Inspection: No distended, No Abdominal panniculus present and Yes obesity Palpation (GI): Soft to palpation, nontender, no guarding, not rigid and No hepatosplenomegaly present Percussion: Yes normal to percussion Auscultation: normal bowel sounds Rectal Exam - Female: deferred Skin General skin exam: no rashes or lesions noted, turgor normal, skin not dry, no jaundice, No spider nevi and no striae Rashes: no rashes Nails: normal Neuro General: oriented to person, oriented to place and oriented to time Cranial nerves: Yes Equal, round and reactive pupils present and Yes Normal hearing present Speech: No Abnormal speech present Extrem General: Yes normal to inspection, No clubbing, No cyanosis and No edema Psych Appearance: grossly normal and well kempt Mental Status: mental status grossly normal Speech and movement: Normal speech and movement present Affect: normal affect Attitude: cooperative Thought process: Normal thought process present and not confabulating Thought content: Normal thought content present Insight: Limited insight present (Psych) Judgement: Limited judgement present (Psych) Assessment & Plan Assessment & Plan (1) GERD with esophagitis: Comment: 2022 biopsy on going chronic irritation. Code(s): K21.00 - Gastro-esophageal reflux disease with esophagitis, without bleeding (2) Irritable bowel syndrome with both constipation and diarrhea: Code(s): K58.2 - Mixed irritable bowel syndrome (3) Gallstones: Code(s): K80.20 - Calculus of gallbladder without cholecystitis without obstruction Plan [place] #Maryjo LIve She is here with a female family member who is supportive. Her swallowing is some days good some bad. She did have residual problems with swallowing liquids. I ask if she needs to have another dilation, and she declines for now. She never received the famotidine or the senna, it was sent to the wrong pharmacy and I re direct it today. She continues on her pantoprazole in the morning and her fiber therapy as well. The patient c/o not wanting to have such frequent follow ups with me, I explain this will be extended. ROV 2 mos. Medications: Refilled pantoprazole 40 mg PO DAILY 30 tabs 6RF famotidine (Pepcid) 40 mg PO BEDTIME 30 tabs 6RF K21.00 - Gastro-esophageal reflux disease with esophagitis, without bleeding sennosides (Senna Laxative) 17.2 mg (2 x 8.6 mg) PO BEDTIME 60 tabs 6RF K58.2 - Mixed irritable bowel syndrome Coding Level of Care Code Est Pt Level 3 (10796) Diagnoses GERD with esophagitis K21.00 Irritable bowel syndrome with both constipation and diarrhea K58.2 Gallstones K80.20
[2023-10-09 12:45] VITALS: BP 154/88; PULSE 86; BMI 33.2
== END 2023-10-09 13:09 | disposition home or self-care (01) ==
PROVIDERS: PCP Nurse Practitioner Family; Visit Provider Nurse Practitioner
DX: K21.00 Gastro-esophageal reflux disease with esophagitis, without bleeding (principal); K58.2 Mixed irritable bowel syndrome; K80.20 Calculus of gallbladder without cholecystitis without obstruction
CPT/HCPCS: 99213

== ENCOUNTER → 2023-10-09 12:39 | Outpatient (BNVA) | payer MEDICARE, MEDICAID, SELFPAY | PROVIDERS: PCP Nurse Practitioner Family; Visit Provider Nurse Practitioner | DX: K21.00 Gastro-esophageal reflux disease with esophagitis, without bleeding (principal); K58.2 Mixed irritable bowel syndrome; K80.20 Calculus of gallbladder without cholecystitis without obstruction | CPT/HCPCS: 99212 ==

== ENCOUNTER 2023-11-14 14:46 | Outpatient (AMB) | payer MEDICARE, MEDICAID, SELFPAY ==
--- NOTE | 2023-11-14 14:50 | A.OFFVIS_ITS ---
Intake Vital Signs 11/14/23 14:54 Height 5 ft 3 in Weight 184 lb 4.903 oz BMI 32.6 BP 123/69 Blood Pressure Location Lt brachial Position Sitting Pulse 101 H Intake Visit Reasons: 6 month follow up Intake Note: Patient returns to in office visit today follow up of GERD. CC: Patient reports she feels better and is not spitting out so much. She states she sometimes gets constipated but the senna helps her. Seed Corn Production Manager Required: Yes Seed Corn Production Manager Name: maryjo Accompanied by: Daughter Allergies No Known Allergies [No Known Allergies*] Allergy (Verified 11/14/23 14:59) HPI 6 month follow up HPI Details Assessment & Plan (1) GERD with esophagitis: Comment: 2022 biopsy on going chronic irritation. Code(s): K21.00 - Gastro-esophageal reflux disease with esophagitis, without bleeding (2) Irritable bowel syndrome with both c onstipation and diarrhea: Code(s): K58.2 - Mixed irritable bowel syndrome (3) Gallstones: Code(s): K80.20 - Calculus of gallbladder without cholecystitis without obstruction Plan [place] #Maryjo LIve She is here with a female family member who is supportive. Her swallowing is some days good some bad. She did have residual problems with swallowing liquids. I ask if she needs to have another dilation, and she declines for now. She never received the famotidine or the senna, it was sent to the wrong pharmacy and I re direct it today. She continues on her pantoprazole in the morning and her fiber therapy as well. The patient c/o not wanting to have such frequent follow ups with me, I explain this will be extended. ROV 2 mos. Medications: Refilled pantoprazole 40 mg PO DAILY 30 tabs 6RF famotidine (Pepcid ) 40 mg PO BEDTIME 30 tabs 6RF K21.00 - Gastro-es ophageal reflux di sease with esophag itis, without blee ding sennosides (Senna Laxative) 17.2 mg (2 x 8.6 m g) PO BEDTIME 60 t abs 6RF K58.2 - Mixed irri table bowel syndro me ? TODAY'S VISI [place] #Maryjo Live She is here with a female family member who is supportive. She now has all of the medicines, the pantoprazoile, famotindine and senna with fiber. With this she is choking less often as noted by her family member. She still will occasionally choke on liquids, but she often drinks too fast. I explained her that it is very easy to choke on liquids because the throat may not fully close if your drinking too quickly and will sneak into the lungs ?through the cracks. ? This is a non technical explanation but the patient seems to understand it, and agree she needs to drink more slowly. If this does not resolve the problem we could consider a modified barium swallow with speech therapy going forward. ROV 6 mos. [facility] Medical History Upper abdominal pain Pre-op examination Smoker Asthma exacerbation Marijuana use Alcohol abuse Pre-diabetes High cholesterol Hypertension Chronic sinusitis HLD (hyperlipidemia) Asthma Surgical History History of esophagogastroduodenoscopy (EGD) H/O colonoscopy Family History Brother Mouth cancer Social History Alcohol intake: former Patient Tobacco Use Status: Former Tobacco user Quit Date: 2017 service: No Current occupational status: disabled Review of Systems Const Denies fatigue, Denies fever(s), Denies night sweats, Denies poor appetite and Denies weight loss ENT Reports Normal hearing present, Denies dental pain, Reports dysphagia (Only with liquids when drinking too quickly), Denies hearing loss, Denies mouth pain, Denies odynophagia, Denies throat swelling, Denies tongue swelling and Reports other (Dentition adequate) Card Reports no additional complaints Resp Reports no additional complaints GI Denies abdominal pain, Denies melena, Denies bloating, Denies hematochezia, Reports constipation, Denies GI cramping, Reports dysphagia (Only with liquids when drinking too quickly), Denies excessive flatus, Denies early satiety, Reports heartburn, Denies diarrhea, Denies nausea, Denies odynophagia, Denies vomiting and Denies hematemesis Skin/Breast Denies pruritus, Denies lesions, Denies rash and Denies jaundice Neuro Reports Normal hearing present and Denies Abnormal speech present Endo Denies fatigue Aller/Immun Denies throat swelling and Denies tongue swelling Physical Exam Vital Signs: Last Vital Signs Pulse 101 H 11/14/23 14:54 BP 123/69 11/14/23 14:54 BMI result Body Mass Index 32.6 Const General: cooperative, no acute distress, well developed and well groomed Nutritional Appearance: well nourished and obese Orientation/consciousness: oriented to person, oriented to place and oriented to time Limitations: language barrier HEENT Head: Yes normocephalic and Yes atraumatic Eyes General: appearance normal, both eyes and all related structures Pupils: Equal, round and reactive pupils present Neck Neck: Yes normal visual inspection and Yes no lymphadenopathy Thyroid: Thyroid normal Resp Effort & Inspection: normal respiratory effort and able to speak in complete sentences Auscultation: clear to auscultation bilaterally Cardio Rate: regular rate Rhythm: regular rhythm Heart sounds: Normal, physiologic split S2 sound present Peripheral pulses: radial pulses present and posterior tibial pulses present GI Inspection: No distended, Yes Abdominal panniculus present and Yes obesity Palpation (GI): Soft to palpation, nontender, no guarding, not rigid and No hepatosplenomegaly present Percussion: Yes normal to percussion Auscultation: normal bowel sounds Rectal Exam - Female: deferred Skin General skin exam: no rashes or lesions noted, turgor normal, skin not dry, no jaundice, No spider nevi and no striae Rashes: no rashes Nails: normal Neuro General: oriented to person, oriented to place and oriented to time Cranial nerves: Yes Equal, round and reactive pupils present and Yes Normal hearing present Speech: No Abnormal speech present Extrem General: Yes normal to inspection, No clubbing, No cyanosis and No edema Psych Appearance: grossly normal and well kempt Mental Status: mental status grossly normal Speech and movement: Normal speech and movement present Affect: normal affect Attitude: cooperative Thought process: not confabulating and Impoverished thought process present Thought content: Normal thought content present Insight: Limited insight present (Psych) Judgement: Limited judgement present (Psych) Assessment & Plan Assessment & Plan (1) Irritable bowel syndrome with both constipation and diarrhea: Code(s): K58.2 - Mixed irritable bowel syndrome (2) GERD with esophagitis: Comment: 2022 biopsy on going chronic irritation. Code(s): K21.00 - Gastro-esophageal reflux disease with esophagitis, without bleeding Plan [place] #Maryjo Live She is here with a female family member who is supportive. She now has all of the medicines, the pantoprazoile, famotindine and senna with fiber. With this she is choking less often as noted by her family member. She still will occasionally choke on liquids, but she often drinks too fast. I explained her that it is very easy to choke on liquids because the throat may not fully close if your drinking too quickly and will sneak into the lungs ?through the cracks. ? This is a non technical explanation but the patient seems to understand it, and agree she needs to drink more slowly. If this does not resolve the problem we could consider a modified barium swallow with speech therapy going forward. ROV 6 mos. Medications: Refilled pantoprazole 40 mg PO DAILY 30 tabs 6RF psyllium husk (Reguloid (psyllium husk)) 0.8 grams (2 x 0.4 gram) PO BID 60 caps 6RF K58.2 - Mixed irritable bowel syndrome sennosides (Senna Laxative) 17.2 mg (2 x 8.6 mg) PO BEDTIME 60 tabs 6RF K58.2 - Mixed irritable bowel syndrome famotidine (Pepcid) 40 mg PO BEDTIME 30 tabs 6RF K21.00 - Gastro-esophageal reflux disease with esophagitis, without bleeding Coding Level of Care Code Est Pt Level 3 (51589) Diagnoses Irritable bowel syndrome with both constipation and diarrhea K58.2 GERD with esophagitis K21.00
[2023-11-14 14:54] VITALS: BP 123/69; PULSE 101; BMI 32.6
== END 2023-11-14 15:12 | disposition home or self-care (01) ==
PROVIDERS: PCP Nurse Practitioner Family; Visit Provider Nurse Practitioner
DX: K58.2 Mixed irritable bowel syndrome (principal); K21.00 Gastro-esophageal reflux disease with esophagitis, without bleeding
CPT/HCPCS: 99213

== ENCOUNTER → 2023-11-14 14:46 | Outpatient (BNVA) | payer MEDICARE, MEDICAID, SELFPAY | PROVIDERS: PCP Nurse Practitioner Family; Visit Provider Nurse Practitioner | DX: K58.2 Mixed irritable bowel syndrome (principal); K21.00 Gastro-esophageal reflux disease with esophagitis, without bleeding | CPT/HCPCS: 99212 ==

== ENCOUNTER 2024-02-13 15:28 | Outpatient (AMB) | payer MEDICARE, MEDICAID, SELFPAY ==
[2024-02-13 15:33] VITALS: BP 111/78; PULSE 92; O2SAT 96; BMI 36.1
--- NOTE | 2024-02-13 15:33 | A.OFFVIS_ITS ---
Intake Vital Signs 02/13/24 15:33 Height 5 ft 3 in Weight 203 lb 14.841 oz BMI 36.1 BP 111/78 Blood Pressure Location Rt brachial Position Sitting Pulse 92 Pulse Source Doppler Pulse Oximetry (%) 96 Oxygen Delivery Method Room Air Intake Visit Reasons: CT Follow Up Snuff Grinder And Screener Required: Yes Snuff Grinder And Screener Name: Estela Lucas Rosy Allergies No Known Allergies [No Known Allergies*] Allergy (Verified 02/13/24 15:37) HPI CT Follow Up HPI Details 68-year-old lady, 30+ pack-year smoker, quit 2018, followed for underlying mild to moderate asthma/COPD overlap syndrome pulmonary nodules.? She continues to use Trelegy, and albuterol MDI, with good baseline control.? Her orthopnea as well controlled on furosemide 40 mg daily. She denies recent exacerbations. [facility] Medical History Upper abdominal pain Pre-op examination Smoker Asthma exacerbation Marijuana use Alcohol abuse Pre-diabetes High cholesterol Hypertension Chronic sinusitis HLD (hyperlipidemia) Asthma Surgical History History of esophagogastroduodenoscopy (EGD) H/O colonoscopy Family History Brother Mouth cancer Social History Alcohol intake: former Patient Tobacco Use Status: Former Tobacco user Quit Date: 2017 service: No Current occupational status: disabled Review of Systems Const Denies daytime sleepiness, Denies excessive sweating, Denies fatigue, Denies fever(s), Denies lethargy, Denies malaise, Denies night sweats, Denies snoring and Denies weight loss Eyes Denies blurry vision and Denies itchy eyes ENT Denies nasal congestion, Denies post nasal drip, Denies sinus pain, Denies sinus pressure and Denies other ( Thrush) Card Denies chest pain, Denies pedal edema, Denies dyspnea, Denies orthopnea and Denies paroxysmal nocturnal dyspnea Resp Denies cough, Denies hemoptysis, Denies excessive phlegm production, Denies dyspnea, Denies snoring and Denies wheezing GI Denies abdominal pain and Denies heartburn Musc Denies myalgias, Denies arthralgias and Denies joint swelling Skin/Breast Denies rash Neuro Denies memory loss and Denies seizure-like activity Psych Denies abnormal sleep pattern, Denies anxiety and Denies memory loss Endo Denies excessive sweating, Denies fatigue and Denies heat intolerance Angelo/Lymph Denies easy bruising Aller/Immun Denies itchy eyes, Denies seasonal rhinorrhea and Denies wheezing Physical Exam Vital Signs: Last Vital Signs Pulse 92 02/13/24 15:33 BP 111/78 02/13/24 15:33 Pulse Ox 96 02/13/24 15:33 Oxygen Delivery Method Room Air 02/13/24 15:33 BMI result Body Mass Index 36.1 Const General: no acute distress and alert Nutritional Appearance: obese Orientation/consciousness: Other orientation findings ( oriented) HEENT Head: Yes atraumatic Eyes General: appearance normal, both eyes and all related structures Sclerae: sclerae normal EOM: EOMs intact bilaterally Neck Neck: Yes supple Lymphatic: no lymphadenopathy noted Resp Effort & Inspection: normal respiratory effort and no use of accessory muscles Auscultation: clear to auscultation bilaterally Cardio Rate: regular rate Rhythm: regular rhythm Heart sounds: no gallops, no murmurs and no rubs Skin General skin exam: other ( warm) Extrem General: No clubbing, No cyanosis and No edema Assessment & Plan Assessment & Plan (1) Asthma-COPD overlap syndrome: Code(s): J44.9 - Chronic obstructive pulmonary disease, unspecified Plan: Well controlled on current regimen of Trelegy and albuterol MDI/nebs. Continue current regimen. (2) Pulmonary nodules: Code(s): R91.8 - Other nonspecific abnormal finding of lung field Plan: Results of CT chest reviewed, stable pulmonary nodules. Continue with screening next in August of 2024. Coding Level of Care Code Est Pt Level 4 (47343) Diagnoses Asthma-COPD overlap syndrome J44.9 Pulmonary nodules R91.8
== END 2024-02-13 15:53 | disposition home or self-care (01) ==
PROVIDERS: PCP Nurse Practitioner Family; Visit Provider Internal Medicine Pulmonary Disease
DX: J44.9 Chronic obstructive pulmonary disease, unspecified (principal); R91.8 Other nonspecific abnormal finding of lung field
CPT/HCPCS: 99214

== ENCOUNTER → 2024-02-13 15:28 | Outpatient (BNVA) | payer MEDICARE, MEDICAID, SELFPAY | PROVIDERS: PCP Nurse Practitioner Family; Visit Provider Internal Medicine Pulmonary Disease | DX: J44.9 Chronic obstructive pulmonary disease, unspecified (principal); R91.8 Other nonspecific abnormal finding of lung field | CPT/HCPCS: 99212 ==

== ENCOUNTER 2024-03-05 14:03 | Outpatient (AMB) | payer MEDICARE, MEDICAID, SELFPAY ==
--- NOTE | 2024-03-05 14:05 | MHC.OFFVIS ---
Vital Signs 03/05/24 14:06 Height 5 ft 3 in Weight 197 lb 8.547 oz BMI 35.0 BP 131/66 Blood Pressure Location Lt brachial Position Sitting Pulse 80 Intake Visit Reasons: 2 month follow up PT N/S last appt Intake Note: Patient returns in follow up of GERD. CC: She c/o pain from her throat. Denies other GI symptoms. Receptionist Telephone Operator Required: Yes Accompanied by: AUTOMOBILE SERVICE STATION MANAGER Allergies No Known Allergies [No Known Allergies*] Allergy (Verified 03/05/24 14:09) HPI HPI 2 month follow up PT N/S last appt: Details: Assessment & Plan (1) Irritable bowel syndrome with both constipation and diarrhea: Code(s): K58.2 - Mixed irritable bowel syndrome (2) GERD with esophagitis: Comment: 2022 biopsy on going chronic irritation. Code(s): K21.00 - Gastro-esophageal reflux disease with esophagitis, without bleeding Plan [place] #Maryjo Live She is here with a female family member who is supportive. She now has all of the medicines, the pantoprazoile, famotindine and senna with fiber. With this she is choking less often as noted by her family member. She still will occasionally choke on liquids, but she often drinks too fast. I explained her that it is very easy to choke on liquids because the throat may not fully close if your drinking too quickly and will sneak into the lungs ?through the cracks. ? This is a non technical explanation but the patient seems to understand it, and agree she needs to drink more slowly. If this does not resolve the problem we could consider a modified barium swallow with speech therapy going forward. ROV 6 mos. Medications: Refilled pantoprazole 40 mg PO DAILY 30 tabs 6RF psyllium husk (Reguloid (psyllium husk)) 0.8 grams (2 x 0.4 gram) PO BID 60 caps 6RF K58.2 - Mixed irritable bowel syndrome sennosides (Senna Laxative) 17.2 mg (2 x 8.6 mg) PO BEDTIME 60 tabs 6RF K58.2 - Mixed irritable bowel syndrome famotidine (Pepcid) 40 mg PO BEDTIME 30 tabs 6RF K21.00 - Gastro-esophageal reflux disease with esophagitis, without bleeding ? TODAY'S VISIT [place] # Luisa William SHE IS HERE TODAY WITH A FEMALE FAMILY MEMBER who is supportive She says that her throat has been hurting her more, but she and the female family member she is with are unsure if she is taking her medicines correctly. I write out the medicines. She also was just started on metformin, and with this she is constipated and the senna is not working. This could be driving her GERD even if she is taking her pantoprazole qam and famotidine qhs correctly. I will give her the senna 2 tabs to increase to bid if needed. They are unsure if she is taking her fiber pills either. ROV 3 weeks. PFS Medical History Upper abdominal pain Pre-op examination Smoker Asthma exacerbation Marijuana use Alcohol abuse Pre-diabetes High cholesterol Hypertension Chronic sinusitis HLD (hyperlipidemia) Asthma Surgical History History of esophagogastroduodenoscopy (EGD) H/O colonoscopy Family History Brother Mouth cancer Social History Alcohol intake: former Patient Tobacco Use Status: Former Tobacco user Quit Date: 2017 service: No Current occupational status: disabled Review of Systems Const Denies fatigue, Denies fever(s), Denies night sweats, Denies poor appetite and Denies weight loss ENT Reports Normal hearing present, Denies dental pain, Denies dysphagia, Denies hearing loss, Denies mouth pain, Denies odynophagia, Denies throat swelling, Denies tongue swelling and Reports other (Dentition adequate) Card Reports no additional complaints Resp Reports no additional complaints GI Details: Denies abdominal pain, Denies melena, Denies bloating, Denies hematochezia, Reports constipation, Denies GI cramping, Denies dysphagia, Denies excessive flatus, Denies early satiety, Reports heartburn, Denies diarrhea, Denies nausea, Denies odynophagia, Denies vomiting and Denies hematemesis Skin/Breast Denies pruritus, Denies lesions, Denies rash and Denies jaundice Neuro Reports Normal hearing present and Denies Abnormal speech present Endo Denies fatigue Aller/Immun Denies throat swelling and Denies tongue swelling Physical Exam Vital Signs: Last Vital Signs Pulse 80 03/05/24 14:06 BP 131/66 03/05/24 14:06 BMI result Body Mass Index 35.0 Const General: cooperative, no acute distress, well developed and well groomed Nutritional Appearance: well nourished and obese morbidly obese Orientation/consciousness: oriented to person, oriented to place and oriented to time Limitations: language barrier and other limitations HEENT Head: Yes normocephalic and Yes atraumatic Eyes General: appearance normal, both eyes and all related structures Pupils: Equal, round and reactive pupils present Neck Neck: Yes normal visual inspection and Yes no lymphadenopathy Thyroid: Thyroid normal Resp Effort & Inspection: normal respiratory effort and able to speak in complete sentences Auscultation: clear to auscultation bilaterally Cardio Rate: regular rate Rhythm: regular rhythm Heart sounds: Normal, physiologic split S2 sound present Peripheral pulses: radial pulses present and posterior tibial pulses present GI Inspection: No distended, Yes Abdominal panniculus present and Yes obesity Palpation (GI): Soft to palpation, nontender, no guarding, not rigid and No hepatosplenomegaly present Percussion: Yes normal to percussion Auscultation: normal bowel sounds Rectal Exam - Female: deferred Skin General skin exam: no rashes or lesions noted, turgor normal, skin not dry, no jaundice, No spider nevi and no striae Rashes: no rashes Nails: normal Neuro General: oriented to person, oriented to place and oriented to time Cranial nerves: Yes Equal, round and reactive pupils present and Yes Normal hearing present Speech: No Abnormal speech present Extrem General: Yes normal to inspection, No clubbing, No cyanosis and No edema Psych Appearance: grossly normal and well kempt Mental Status: mental status grossly normal Speech and movement: Normal speech and movement present Affect: normal affect Attitude: cooperative Thought process: Normal thought process present and not confabulating Thought content: Normal thought content present Insight: Limited insight present (Psych) Judgement: Limited judgement present (Psych) Assessment & Plan Assessment & Plan (1) GERD with esophagitis: Comment: 2022 biopsy on going chronic irritation. Code(s): K21.00 - Gastro-esophageal reflux disease with esophagitis, without bleeding Category: Medical (2) Irritable bowel syndrome with both constipation and diarrhea: Code(s): K58.2 - Mixed irritable bowel syndrome Category: Medical (3) Tubular adenoma of colon: Comment: 2022=1 TA repeat 5 years; 2014 scope = TA Code(s): D12.6 - Benign neoplasm of colon, unspecified Category: Medical Plan [place] # Luisa Live SHE IS HERE TODAY WITH A FEMALE FAMILY MEMBER who is supportive She says that her throat has been hurting her more, but she and the female family member she is with are unsure if she is taking her medicines correctly. I write out the medicines. She also was just started on metformin, and with this she is constipated and the senna is not working. This could be driving her GERD even if she is taking her pantoprazole qam and famotidine qhs correctly. I will give her the senna 2 tabs to increase to bid if needed. They are unsure if she is taking her fiber pills either. ROV 3 weeks. Medications: Changed From sennosides (Senna Laxative) 17.2 mg (2 x 8.6 mg) PO BEDTIME 60 tabs 6RF K58.2 - Mixed irritable bowel syndrome To sennosides (Senna Laxative) 17.2 mg (2 x 8.6 mg) PO BID 120 tabs 6RF K58.2 - Mixed irritable bowel syndrome Refilled psyllium husk (Reguloid (psyllium husk)) 0.8 grams (2 x 0.4 gram) PO BID 60 caps 6RF K58.2 - Mixed irritable bowel syndrome Patient Instructions: 1. Pantoprazol 40 mg por la ma?jorge. 2. Famotidina 40 mg antes de acostarse 3. Sen 2 comprimidos antes de acostarse para el estre?imiento. Est? molly tyshawn 2 de sen antes de acostarse y 2 por la ma?jorge si necesita defecar mejor. Quiero verte en 3 semanas para alondra si necesitamos cambiar los medicamentos. Coding Level of Care Code Est Pt Level 3 (60999) Diagnoses GERD with esophagitis K21.00 Irritable bowel syndrome with both constipation and diarrhea K58.2 Tubular adenoma of colon D12.6
[2024-03-05 14:06] VITALS: BP 131/66; PULSE 80; BMI 35.0
== END 2024-03-05 14:36 | disposition home or self-care (01) ==
PROVIDERS: PCP Nurse Practitioner Family; Visit Provider Nurse Practitioner
DX: K21.00 Gastro-esophageal reflux disease with esophagitis, without bleeding (principal); K58.2 Mixed irritable bowel syndrome; D12.6 Benign neoplasm of colon, unspecified
CPT/HCPCS: 99213

== ENCOUNTER → 2024-03-05 14:03 | Outpatient (BNVA) | payer MEDICARE, MEDICAID, SELFPAY | PROVIDERS: PCP Nurse Practitioner Family; Visit Provider Nurse Practitioner | DX: K21.00 Gastro-esophageal reflux disease with esophagitis, without bleeding (principal); K58.2 Mixed irritable bowel syndrome; D12.6 Benign neoplasm of colon, unspecified | CPT/HCPCS: 99212 ==

== ENCOUNTER 2024-03-26 15:03 | Outpatient (AMB) | payer MEDICARE, MEDICAID, SELFPAY ==
[2024-03-26 15:06] VITALS: BP 110/57; PULSE 99; BMI 35.4
--- NOTE | 2024-03-26 15:06 | A.OFFVIS_ITS ---
Vital Signs 03/26/24 15:06 Height 5 ft 3 in Weight 199 lb 11.821 oz BMI 35.4 BP 110/57 L Blood Pressure Location Lt brachial Position Sitting Pulse 99 Intake Visit Reasons: 3 week follow up Intake Note: Angelica returns in follow up of GERD. CC: Patient c/o discomfort from her esophagus and having to spit a lot. Contact Clerk Required: Yes Allergies No Known Allergies [No Known Allergies*] Allergy (Verified 04/01/24 13:46) HPI HPI 3 week follow up: Details: Assessment & Plan (1) GERD with esophagitis: Comment: 2022 biopsy on going chronic irritation. Code(s): K21.00 - Gastro-esophageal reflux disease with esophagitis, without bleeding Category: Medical (2) Irritable bowel syndrome with both constipation and diarrhea: Code(s): K58.2 - Mixed irritable bowel syndrome Category: Medical (3) Tubular adenoma of colon: Comment: 2022=1 TA repeat 5 years; 2014 scope = TA Code(s): D12.6 - Benign neoplasm of colon, unspecified Category: Medical Plan [place] # Luisa William SHE IS HERE TODAY WITH A FEMALE FAMILY MEMBER who is supportive She says that her throat has been hurting her more, but she and the female family member she is with are unsure if she is taking her medicines correctly. I write out the medicines. She also was just started on metformin, and with this she is constipated and the senna is not working. This could be driving her GERD even if she is taking her pantoprazole qam and famotidine qhs correctly. I will give her the senna 2 tabs to increase to bid if needed. They are unsure if she is taking her fiber pills either. ROV 3 weeks. Medications: Changed From sennosides (Senna Laxative) 17.2 mg (2 x 8.6 mg) PO BEDTIME 60 tabs 6RF K58.2 - Mixed irritable bowel syndrome To sennosides (Senna Laxative) 17.2 mg (2 x 8.6 mg) PO BID 120 tabs 6RF K58.2 - Mixed irritable bowel syndrome Refilled psyllium husk (Reguloid (psyllium husk)) 0.8 grams (2 x 0.4 gram) PO BID 60 caps 6RF K58.2 - Mixed irritable bowel syndrome Patient Instructions: 1. Pantoprazol 40 mg por la ma?jorge. 2. Famotidina 40 mg antes de acostarse 3. Sen 2 comprimidos antes de acostarse para el estre?imiento. Est? molly tyshawn 2 de sen antes de acostarse y 2 por la ma?jorge si necesita defecar mejor. Quiero verte en 3 semanas para alondra si necesitamos cambiar los medicamentos. TODAY'S VISIT [place] #Rde William Her throat is feeling better, it appears she is taking her medication, atleast now, but it is unclear if she is having diarrhea about every 6 mos. Her GI regimen is to consist of famotidine 40 mg at bedtime, pantoprazole 40 mg in the morning, psyllium husk fiber, senna. She is c/o generalized swelling, and I note she was on lasix in past via Dr. Posey, but no refills for 6 mos ? pulm htn and diastolic dysfxn on echo - never seen cardiology - I will refer. Sent note to Pavlov. APPLE 8 weeks. [facility] Medical History Upper abdominal pain Pre-op examination Smoker Asthma exacerbation Marijuana use Alcohol abuse Pre-diabetes High cholesterol Hypertension Chronic sinusitis HLD (hyperlipidemia) Asthma Surgical History History of esophagogastroduodenoscopy (EGD) H/O colonoscopy Family History Brother Mouth cancer Social History Alcohol intake: former Patient Tobacco Use Status: Former Tobacco user service: No Current occupational status: disabled Review of Systems Const Denies fatigue, Denies fever(s), Denies night sweats, Denies poor appetite and Denies weight loss ENT Reports Normal hearing present, Denies dental pain, Denies dysphagia, Denies hearing loss, Denies mouth pain, Denies odynophagia, Denies throat swelling, Denies tongue swelling and Reports other (Dentition adequate) Card Reports leg edema Resp Reports no additional complaints GI Details: Denies abdominal pain, Denies melena, Denies bloating, Denies hematochezia, Reports constipation, Denies GI cramping, Denies dysphagia, Denies excessive flatus, Denies early satiety, Reports heartburn, Denies diarrhea, Denies nausea, Denies odynophagia, Denies vomiting and Denies hematemesis Skin/Breast Denies pruritus, Denies lesions, Denies rash and Denies jaundice Neuro Reports Normal hearing present and Denies Abnormal speech present Endo Denies fatigue Aller/Immun Denies throat swelling and Denies tongue swelling Physical Exam Vital Signs: Last Vital Signs Pulse 99 03/26/24 15:06 BP 110/57 L 03/26/24 15:06 BMI result Body Mass Index 35.4 Const General: cooperative, no acute distress, well developed and well groomed Nutritional Appearance: well nourished and obese Orientation/consciousness: oriented to person, oriented to place and oriented to time Limitations: language barrier HEENT Head: Yes normocephalic and Yes atraumatic Eyes General: appearance normal, both eyes and all related structures Pupils: Equal, round and reactive pupils present Neck Neck: Yes normal visual inspection and Yes no lymphadenopathy Thyroid: Thyroid normal Resp Effort & Inspection: normal respiratory effort and able to speak in complete sentences Auscultation: clear to auscultation bilaterally Cardio Rate: regular rate Rhythm: regular rhythm Heart sounds: Normal, physiologic split S2 sound present Peripheral pulses: radial pulses present and posterior tibial pulses present GI Inspection: No distended, No Abdominal panniculus present and Yes obesity Palpation (GI): Soft to palpation, nontender, no guarding, not rigid and No hepatosplenomegaly present Percussion: Yes normal to percussion Auscultation: normal bowel sounds Rectal Exam - Female: deferred Skin General skin exam: no rashes or lesions noted, turgor normal, skin not dry, no jaundice, No spider nevi and no striae Rashes: no rashes Nails: normal Neuro General: oriented to person, oriented to place and oriented to time Cranial nerves: Yes Equal, round and reactive pupils present and Yes Normal hearing present Speech: No Abnormal speech present Extrem General: Yes normal to inspection, No clubbing, No cyanosis and Yes edema Psych Appearance: grossly normal and well kempt Mental Status: mental status grossly normal Speech and movement: Normal speech and movement present Affect: normal affect Attitude: cooperative Thought process: Normal thought process present and not confabulating Thought content: Normal thought content present Insight: Limited insight present (Psych) and Poor insight present (Psych) Judgement: Limited judgement present (Psych) and Poor judgement present (Psych) Assessment & Plan Assessment & Plan (1) GERD with esophagitis: Comment: 2022 biopsy on going chronic irritation. Code(s): K21.00 - Gastro-esophageal reflux disease with esophagitis, without bleeding Category: Medical (2) Irritable bowel syndrome with both constipation and diarrhea: Code(s): K58.2 - Mixed irritable bowel syndrome Category: Medical (3) Pulmonary hypertension: Comment: ? diastolic dysfunction Code(s): I27.20 - Pulmonary hypertension, unspecified Category: Medical Plan [place] #Red Live Her throat is feeling better, it appears she is taking her medication, atleast now, but it is unclear if she is having diarrhea about every 6 mos. Her GI regimen is to consist of famotidine 40 mg at bedtime, pantoprazole 40 mg in the morning, psyllium husk fiber, senna. She is c/o generalized swelling, and I note she was on lasix in past via Dr. Posey, but no refills for 6 mos ? pulm htn and diastolic dysfxn on echo - never seen cardiology - I will refer. Sent note to Pavlov. APPLE 8 weeks. Orders: Referrals Cardiology Referral I27.20 - Pulmonary hypertension, unspecified Coding Level of Care Code Est Pt Level 3 (59775) Diagnoses GERD with esophagitis K21.00 Irritable bowel syndrome with both constipation and diarrhea K58.2 Pulmonary hypertension I27.20
== END 2024-03-26 15:44 | disposition home or self-care (01) ==
PROVIDERS: PCP Nurse Practitioner Family; Visit Provider Nurse Practitioner
DX: K21.00 Gastro-esophageal reflux disease with esophagitis, without bleeding (principal); K58.2 Mixed irritable bowel syndrome; I27.20 Pulmonary hypertension, unspecified
CPT/HCPCS: 99213

== ENCOUNTER → 2024-03-26 15:03 | Outpatient (BNVA) | payer MEDICARE, MEDICAID, SELFPAY | PROVIDERS: PCP Nurse Practitioner Family; Visit Provider Nurse Practitioner | DX: K21.00 Gastro-esophageal reflux disease with esophagitis, without bleeding (principal); K58.2 Mixed irritable bowel syndrome; I27.20 Pulmonary hypertension, unspecified | CPT/HCPCS: 99212 ==

== ENCOUNTER 2024-04-01 13:37 | Outpatient (AMB) | payer MEDICARE, MEDICAID, SELFPAY ==
[2024-04-01 13:40] VITALS: BP 110/67; PULSE 111; O2SAT 96; BMI 34.4
--- NOTE | 2024-04-01 13:40 | A.OFFVIS_ITS ---
Vital Signs 04/01/24 13:40 Height 5 ft 3 in Weight 194 lb 0.108 oz BMI 34.4 BP 110/67 Blood Pressure Location Rt brachial Position Sitting Pulse 111 H Pulse Source Doppler Pulse Oximetry (%) 96 Oxygen Delivery Method Room Air Intake Visit Reasons: Medication adjustment Single Pass Soil Stabilizer Operator Required: Yes Single Pass Soil Stabilizer Operator Name: Estela Lucas Rosy Allergies No Known Allergies [No Known Allergies*] Allergy (Verified 04/01/24 13:46) HPI HPI Medication adjustment: Details: 68-year-old lady, 30+ pack-year smoker, quit 2018, followed for underlying mild to moderate asthma/COPD overlap syndrome pulmonary nodules.? She continues to use Trelegy, and albuterol MDI, with good baseline control. She denies recent exacerbations. Patient stopped using diuretic and states that she does not have orthopnea or lower extremity edema. She also states that she has not interested in taking diuretic even if her symptoms would worsen. [facility] Medical History Upper abdominal pain Pre-op examination Smoker Asthma exacerbation Marijuana use Alcohol abuse Pre-diabetes High cholesterol Hypertension Chronic sinusitis HLD (hyperlipidemia) Asthma Surgical History History of esophagogastroduodenoscopy (EGD) H/O colonoscopy Family History Brother Mouth cancer Social History Alcohol intake: former Patient Tobacco Use Status: Former Tobacco user Quit Date: 2017 service: No Current occupational status: disabled Review of Systems Const Denies daytime sleepiness, Denies excessive sweating, Denies fatigue, Denies fever(s), Denies lethargy, Denies malaise, Denies night sweats, Denies snoring and Denies weight loss Eyes Denies blurry vision and Denies itchy eyes ENT Denies nasal congestion, Denies post nasal drip, Denies sinus pain, Denies sinus pressure and Denies other ( Thrush) Card Denies chest pain, Denies pedal edema, Denies dyspnea, Denies orthopnea and Denies paroxysmal nocturnal dyspnea Resp Denies cough, Denies hemoptysis, Denies excessive phlegm production, Denies dyspnea, Denies snoring and Denies wheezing GI Denies abdominal pain and Denies heartburn Musc Denies myalgias, Denies arthralgias and Denies joint swelling Skin/Breast Denies rash Neuro Denies memory loss and Denies seizure-like activity Psych Denies abnormal sleep pattern, Denies anxiety and Denies memory loss Endo Denies excessive sweating, Denies fatigue and Denies heat intolerance Angelo/Lymph Denies easy bruising Aller/Immun Denies itchy eyes, Denies seasonal rhinorrhea and Denies wheezing Physical Exam Vital Signs: Last Vital Signs Pulse 111 H 04/01/24 13:40 BP 110/67 04/01/24 13:40 Pulse Ox 96 04/01/24 13:40 Oxygen Delivery Method Room Air 04/01/24 13:40 BMI result Body Mass Index 34.4 Const General: no acute distress and alert Nutritional Appearance: obese Orientation/consciousness: Other orientation findings ( oriented) HEENT Head: Yes atraumatic Eyes General: appearance normal, both eyes and all related structures Sclerae: sclerae normal EOM: EOMs intact bilaterally Neck Neck: Yes supple Lymphatic: no lymphadenopathy noted Resp Effort & Inspection: normal respiratory effort and no use of accessory muscles Auscultation: clear to auscultation bilaterally Cardio Rate: regular rate Rhythm: regular rhythm Heart sounds: no gallops, no murmurs and no rubs Skin General skin exam: other ( warm) Extrem General: No clubbing, No cyanosis and No edema Assessment & Plan Assessment & Plan (1) Asthma-COPD overlap syndrome: Code(s): J44.9 - Chronic obstructive pulmonary disease, unspecified Category: Medical Plan: Well controlled on Trelegy and albuterol MDI. Continue current regimen. (2) Orthopnea: Code(s): R06.01 - Orthopnea Category: Medical Plan: Now resolved. Will discontinue furosemide. Medications: Discontinued furosemide Discontinued Reason: Doctor's Order 40 mg PO QAM 30 days 30 tabs 6RF Coding Level of Care Code Est Pt Level 3 (40615) Diagnoses Asthma-COPD overlap syndrome J44.9 Orthopnea R06.01
== END 2024-04-01 14:01 | disposition home or self-care (01) ==
PROVIDERS: PCP Nurse Practitioner Family; Visit Provider Internal Medicine Pulmonary Disease
DX: J44.9 Chronic obstructive pulmonary disease, unspecified (principal); R06.01 Orthopnea
CPT/HCPCS: 99213

== ENCOUNTER → 2024-04-01 13:37 | Outpatient (BNVA) | payer MEDICARE, MEDICAID, SELFPAY | PROVIDERS: PCP Nurse Practitioner Family; Visit Provider Internal Medicine Pulmonary Disease | DX: J44.9 Chronic obstructive pulmonary disease, unspecified (principal); R06.01 Orthopnea | CPT/HCPCS: 99212 ==

== ENCOUNTER 2024-05-28 13:39 | Outpatient (AMB) | payer OTHER, MEDICAID, SELFPAY ==
--- NOTE | 2024-05-28 13:40 | A.OFFVIS_ITS ---
Vital Signs 05/28/24 13:51 Height 5 ft 3 in Weight 195 lb 12.328 oz BMI 34.7 BP 82/68 L Blood Pressure Location Lt brachial Position Sitting Pulse 88 Pulse Source Pulse Oximeter Pulse Oximetry (%) 94 Oxygen Delivery Method Room Air Intake Visit Reasons: Follow up 8 weeks Intake Note: Lauren presents in office today for a scheduled 2 mos FUV. CC; Pt reports that they are stable and improving since their last visit. Pt reports that they have been experiencing some GERD sx intermittently over the course of the last 2 weeks. Pt denies any additional sx or concerns. However, she states that her throat is slightly raw due to the GERD. End User Consultant Required: Yes End User Consultant Services: End User Consultant Present End User Consultant Name: [id number] Dev Accompanied by: Family/Other Allergies No Known Allergies [No Known Allergies*] Allergy (Verified 05/28/24 13:42) HPI HPI Follow up 8 weeks: Details: Assessment & Plan (1) GERD with esophagitis: Comment: 2022 biopsy on going chronic irritation. Code(s): K21.00 - Gastro-esophageal reflux disease with esophagitis, without bleeding Category: Medical (2) Irritable bowel syndrome with both constipation and diarrhea: Code(s): K58.2 - Mixed irritable bowel syndrome Category: Medical (3) Pulmonary hypertension: Comment: ? diastolic dysfunction Code(s): I27.20 - Pulmonary hypertension, unspecified Category: Medical Plan Welsh [facility] Live Her throat is feeling better, it appears she is taking her medication, atleast now, but it is unclear if she is having diarrhea about every 6 mos. Her GI regimen is to consist of famotidine 40 mg at bedtime, pantoprazole 40 mg in the morning, psyllium husk fiber, senna. She is c/o generalized swelling, and I note she was on lasix in past via Dr. Posey, but no refills for 6 mos ? pulm htn and diastolic dysfxn on echo - never seen cardiology - I will refer. Sent note to Taty. ZECHARIAH 8 weeks. Orders: Referrals Cardiology Referral I27.20 - Pulmonary hypertension, unspecified CORRESPONDENCE On 03/27/24 @ 11:32 Og Posey Wrote To CieraFebruary Will get her a follow up to [facility]. On 03/27/24 @ 09:15 CieraKarla Wrote To Og Posey She has not been taking it, should it be refilled? On 03/26/24 @ 16:51 Og Posey Wrote To CieraFebruary Either she has not been taking it, or getting refills somewhere else. On 03/26/24 @ 15:38 CieraKarla Wrote To Og Posey I see this pt for GI, she is c/o general edema....you have prescribed lasix in the past but she has not had refills for about 6 mos (? pulm htn)...is she supposed to be on lasix? Please advise. ? TODAY'S VISIT Welsh #Red [facility] Her GI regimen is to consist of famotidine 40 mg at bedtime, pantoprazole 40 mg in the morning, psyllium husk fiber, senna. She has not yet seen Dr. Posey to discuss if she should be on lasix for her pulmonary HTN. rov 6 mos PFSH Medical History Upper abdominal pain Pre-op examination Smoker Asthma exacerbation Marijuana use Alcohol abuse Pre-diabetes High cholesterol Hypertension Chronic sinusitis HLD (hyperlipidemia) Asthma Surgical History History of esophagogastroduodenoscopy (EGD) H/O colonoscopy Family History Brother Mouth cancer Social History Alcohol intake: former Patient Tobacco Use Status: Former Tobacco user service: No Current occupational status: disabled Review of Systems Const Denies fatigue, Denies fever(s), Denies night sweats, Denies poor appetite and Denies weight loss ENT Reports Normal hearing present, Denies dental pain, Denies dysphagia, Denies hearing loss, Denies mouth pain, Denies odynophagia, Denies throat swelling, Denies tongue swelling and Reports other (Dentition adequate) Card Reports leg edema Resp Reports no additional complaints GI Details: Denies abdominal pain, Denies melena, Reports bloating, Denies hematochezia, Reports constipation, Denies GI cramping, Denies dysphagia, Denies excessive flatus, Denies early satiety, Reports heartburn, Denies diarrhea, Denies nausea, Denies odynophagia, Denies vomiting and Denies hematemesis Skin/Breast Denies pruritus, Denies lesions, Denies rash and Denies jaundice Neuro Reports Normal hearing present and Denies Abnormal speech present Endo Denies fatigue Aller/Immun Denies throat swelling and Denies tongue swelling Physical Exam Const General: cooperative, no acute distress, well developed and well groomed Nutritional Appearance: well nourished and obese Orientation/consciousness: oriented to person, oriented to place and oriented to time Limitations: language barrier and other limitations HEENT Head: Yes normocephalic and Yes atraumatic Eyes General: appearance normal, both eyes and all related structures Pupils: Equal, round and reactive pupils present Neck Neck: Yes normal visual inspection and Yes no lymphadenopathy Thyroid: Thyroid normal Resp Effort & Inspection: normal respiratory effort and able to speak in complete sentences Auscultation: clear to auscultation bilaterally Cardio Rate: regular rate Rhythm: regular rhythm Heart sounds: Normal, physiologic split S2 sound present Peripheral pulses: radial pulses present and posterior tibial pulses present GI Inspection: No distended, Yes Abdominal panniculus present and Yes obesity Palpation (GI): Soft to palpation, nontender, no guarding, not rigid and No hepatosplenomegaly present Percussion: Yes normal to percussion Auscultation: normal bowel sounds Rectal Exam - Female: deferred Skin General skin exam: no rashes or lesions noted, turgor normal, skin not dry, no jaundice, No spider nevi and no striae Rashes: no rashes Nails: normal Neuro General: oriented to person, oriented to place and oriented to time Cranial nerves: Yes Equal, round and reactive pupils present and Yes Normal hearing present Speech: No Abnormal speech present Extrem General: Yes normal to inspection, No clubbing, No cyanosis and No edema Psych Appearance: grossly normal and well kempt Mental Status: mental status grossly normal Speech and movement: Normal speech and movement present Affect: normal affect Attitude: cooperative Thought process: Normal thought process present and not confabulating Thought content: Normal thought content present Insight: Limited insight present (Psych) Judgement: Limited judgement present (Psych) Assessment & Plan Assessment & Plan (1) GERD with esophagitis: Comment: 2022 biopsy on going chronic irritation. Code(s): K21.00 - Gastro-esophageal reflux disease with esophagitis, without bleeding Category: Medical (2) Irritable bowel syndrome with both constipation and diarrhea: Code(s): K58.2 - Mixed irritable bowel syndrome Category: Medical Plan Welsh #[employer] live Her GI regimen is to consist of famotidine 40 mg at bedtime, pantoprazole 40 mg in the morning, psyllium husk fiber, senna. She has not yet seen Dr. Posey to discuss if she should be on lasix for her pulmonary HTN. rov 6 mos Medications: Refilled sennosides (Senna Laxative) 17.2 mg (2 x 8.6 mg) PO BID 120 tabs 6RF K58.2 - Mixed irritable bowel syndrome pantoprazole 40 mg PO DAILY 30 tabs 6RF psyllium husk (Reguloid (psyllium husk)) 0.8 grams (2 x 0.4 gram) PO BID 60 caps 6RF K58.2 - Mixed irritable bowel syndrome famotidine (Pepcid) 40 mg PO BEDTIME 30 tabs 6RF K21.00 - Gastro-esophageal reflux disease with esophagitis, without bleeding Coding Level of Care Code Est Pt Level 3 (28371) Diagnoses GERD with esophagitis K21.00 Irritable bowel syndrome with both constipation and diarrhea K58.2
[2024-05-28 13:51] VITALS: BP 82/68; PULSE 88; O2SAT 94; BMI 34.7
== END 2024-05-28 14:15 | disposition home or self-care (01) ==
PROVIDERS: PCP Nurse Practitioner Family; Visit Provider Nurse Practitioner
DX: K21.00 Gastro-esophageal reflux disease with esophagitis, without bleeding (principal); K58.2 Mixed irritable bowel syndrome
CPT/HCPCS: 99213

== ENCOUNTER → 2024-05-28 13:39 | Outpatient (BNVA) | payer OTHER, SELFPAY | PROVIDERS: PCP Nurse Practitioner Family; Visit Provider Nurse Practitioner | DX: K21.00 Gastro-esophageal reflux disease with esophagitis, without bleeding (principal); K58.2 Mixed irritable bowel syndrome | CPT/HCPCS: 99212 ==

== ENCOUNTER 2024-10-07 09:34 | Outpatient (AMB) | payer OTHER, SELFPAY ==
[2024-10-07 09:42] VITALS: BP 110/72; PULSE 102; O2SAT 97; BMI 32.6
--- NOTE | 2024-10-07 09:42 | MHC.OFFVIS ---
Vital Signs 10/07/24 09:42 Height 5 ft 3 in Weight 184 lb 1.376 oz BMI 32.6 BP 110/72 Blood Pressure Location Lt brachial Position Sitting Pulse 102 H Pulse Source Doppler Pulse Oximetry (%) 97 Oxygen Delivery Method Room Air Intake Visit Reasons: asthma-COPD Shirt Sorter Required: Yes Shirt Sorter Name: Estela Lucas Rosy Allergies No Known Allergies [No Known Allergies*] Allergy (Verified 05/28/24 13:42) HPI HPI asthma-COPD: Details: 69-year-old lady, 30+ pack-year smoker, quit 2018, followed for underlying mild to moderate asthma/COPD overlap syndrome pulmonary nodules.? She continues to use Trelegy, and albuterol MDI, with good baseline control. She complains of an acute exacerbation over the last 3 days symptomatic with cough and wheezing. [facility] Medical History Upper abdominal pain Pre-op examination Smoker Asthma exacerbation Marijuana use Alcohol abuse Pre-diabetes High cholesterol Hypertension Chronic sinusitis HLD (hyperlipidemia) Asthma Surgical History History of esophagogastroduodenoscopy (EGD) H/O colonoscopy Family History Brother Mouth cancer Social History Alcohol intake: former Patient Tobacco Use Status: Former Tobacco user service: No Current occupational status: disabled Review of Systems Const Denies daytime sleepiness, Denies excessive sweating, Denies fatigue, Denies fever(s), Denies lethargy, Denies malaise, Denies night sweats, Denies snoring and Denies weight loss Eyes Denies blurry vision and Denies itchy eyes ENT Denies nasal congestion, Denies post nasal drip, Denies sinus pain, Denies sinus pressure and Denies other ( Thrush) Card Denies chest pain, Denies pedal edema, Denies dyspnea, Denies orthopnea and Denies paroxysmal nocturnal dyspnea Resp Reports cough, Denies hemoptysis, Denies excessive phlegm production, Denies dyspnea, Denies snoring and Reports wheezing GI Denies abdominal pain and Denies heartburn Musc Denies myalgias, Denies arthralgias and Denies joint swelling Skin/Breast Denies rash Neuro Denies memory loss and Denies seizure-like activity Psych Denies abnormal sleep pattern, Denies anxiety and Denies memory loss Endo Denies excessive sweating, Denies fatigue and Denies heat intolerance Angelo/Lymph Denies easy bruising Aller/Immun Denies itchy eyes, Denies seasonal rhinorrhea and Reports wheezing Physical Exam Vital Signs: Last Vital Signs Pulse 102 H 10/07/24 09:42 BP 110/72 10/07/24 09:42 Pulse Ox 97 10/07/24 09:42 Oxygen Delivery Method Room Air 10/07/24 09:42 BMI result Body Mass Index 32.6 Const General: no acute distress and alert Nutritional Appearance: not obese Orientation/consciousness: Other orientation findings ( oriented) HEENT Head: Yes atraumatic Eyes General: appearance normal, both eyes and all related structures Sclerae: sclerae normal EOM: EOMs intact bilaterally Neck Neck: Yes supple Lymphatic: no lymphadenopathy noted Resp Effort & Inspection: normal respiratory effort and no use of accessory muscles Auscultation: clear to auscultation bilaterally Cardio Rate: regular rate Rhythm: regular rhythm Heart sounds: no gallops, no murmurs and no rubs Skin General skin exam: other ( warm) Extrem General: No clubbing, No cyanosis and No edema Assessment & Plan Assessment & Plan (1) Asthma-COPD overlap syndrome: Code(s): J44.9 - Chronic obstructive pulmonary disease, unspecified Category: Medical Plan: Baseline well controlled on Trelegy and albuterol MDI/nebs. Continue current regimen. Now with an acute exacerbation, will treat with a course of prednisone azithromycin. (2) Personal history of nicotine dependence: Code(s): Z87.891 - Personal history of nicotine dependence Category: Medical Plan: Results of CT scan from August of 2023 reviewed, no worrisome nodules at that time. Follow-up lung cancer screening CT chest ordered. Medications: New azithromycin For 250 mg dose pack: take 500 mg today (day 1), then 250 mg for 4 days (days 2-5) PO 6 tabs 0RF Refilled prednisone 40 mg (2 x 20 mg) PO DAILY 5 days 10 tabs 0RF Coding Level of Care Code Est Pt Level 4 (64220) Complex EM visit Add On G2211 Diagnoses Asthma-COPD overlap syndrome J44.9 Personal history of nicotine dependence Z87.89
== END 2024-10-07 10:06 | disposition home or self-care (01) ==
PROVIDERS: PCP Nurse Practitioner Family; Visit Provider Internal Medicine Pulmonary Disease
DX: J44.9 Chronic obstructive pulmonary disease, unspecified (principal); Z87.891 Personal history of nicotine dependence
CPT/HCPCS: 99214; G2211

== ENCOUNTER → 2024-10-07 09:34 | Outpatient (BNVA) | payer OTHER, SELFPAY | PROVIDERS: PCP Nurse Practitioner Family; Visit Provider Internal Medicine Pulmonary Disease | DX: J44.89 Other specified chronic obstructive pulmonary disease (principal); R91.8 Other nonspecific abnormal finding of lung field; Z87.891 Personal history of nicotine dependence | CPT/HCPCS: 99212 ==

== ENCOUNTER 2025-02-10 10:51 | Outpatient (AMB) | payer OTHER, SELFPAY ==
[2025-02-10 11:02] VITALS: BP 130/72; PULSE 89; O2SAT 96; BMI 33.1
--- NOTE | 2025-02-10 11:02 | A.OFFVIS_ITS ---
Vital Signs 02/10/25 11:02 Height 5 ft 3 in Weight 187 lb BMI 33.1 BP 130/72 Blood Pressure Location Rt brachial Position Sitting Pulse 89 Pulse Source Doppler Pulse Oximetry (%) 96 Oxygen Delivery Method Room Air Intake Visit Reasons: Asthma/COPD Grinder Set Up Operator Universal Required: Yes Grinder Set Up Operator Universal Name: Estela Lucas Rosy Allergies No Known Allergies [No Known Allergies*] Allergy (Verified 05/28/24 13:42) HPI HPI Asthma/COPD: Details: 69-year-old lady, 30+ pack-year smoker, quit 2017, followed for underlying mild to moderate asthma/COPD overlap syndrome and pulmonary nodules.? She continues to use Trelegy, and albuterol MDI, with good baseline control. She complains of an acute exacerbation symptomatic with mild productive cough. [facility] Medical History Upper abdominal pain Pre-op examination Smoker Asthma exacerbation Marijuana use Alcohol abuse Pre-diabetes High cholesterol Hypertension Chronic sinusitis HLD (hyperlipidemia) Asthma Surgical History History of esophagogastroduodenoscopy (EGD) H/O colonoscopy Family History Brother Mouth cancer Social History Alcohol intake: former Patient Tobacco Use Status: Former Tobacco user service: No Current occupational status: disabled Review of Systems Const Denies daytime sleepiness, Denies excessive sweating, Denies fatigue, Denies fever(s), Denies lethargy, Denies malaise, Denies night sweats, Denies snoring and Denies weight loss Eyes Denies blurry vision and Denies itchy eyes ENT Denies nasal congestion, Denies post nasal drip, Denies sinus pain, Denies sinus pressure and Denies other ( Thrush) Card Denies chest pain, Denies pedal edema, Denies dyspnea, Denies orthopnea and Denies paroxysmal nocturnal dyspnea Resp Reports cough, Denies hemoptysis, Reports excessive phlegm production, Denies dyspnea, Denies snoring and Denies wheezing GI Denies abdominal pain and Denies heartburn Musc Denies myalgias, Denies arthralgias and Denies joint swelling Skin/Breast Denies rash Neuro Denies memory loss and Denies seizure-like activity Psych Denies abnormal sleep pattern, Denies anxiety and Denies memory loss Endo Denies excessive sweating, Denies fatigue and Denies heat intolerance Angelo/Lymph Denies easy bruising Aller/Immun Denies itchy eyes, Denies seasonal rhinorrhea and Denies wheezing Physical Exam Vital Signs: Last Vital Signs Pulse 89 02/10/25 11:02 BP 130/72 02/10/25 11:02 Pulse Ox 96 02/10/25 11:02 Oxygen Delivery Method Room Air 02/10/25 11:02 BMI result Body Mass Index 33.1 Const General: no acute distress and alert Nutritional Appearance: not obese Orientation/consciousness: Other orientation findings ( oriented) HEENT Head: Yes atraumatic Eyes General: appearance normal, both eyes and all related structures Sclerae: sclerae normal EOM: EOMs intact bilaterally Neck Neck: Yes supple Lymphatic: no lymphadenopathy noted Resp Effort & Inspection: normal respiratory effort and no use of accessory muscles Auscultation: clear to auscultation bilaterally Cardio Rate: regular rate Rhythm: regular rhythm Heart sounds: no gallops, no murmurs and no rubs Skin General skin exam: other ( warm) Extrem General: No clubbing, No cyanosis and No edema Assessment & Plan Assessment & Plan (1) Asthma-COPD overlap syndrome: Code(s): J44.9 - Chronic obstructive pulmonary disease, unspecified Category: Medical Plan: Baseline controlled on Trelegy and albuterol MDI. Continue current regimen. Will treat acute exacerbation with a course of prednisone and azithromycin. (2) Personal history of nicotine dependence: Code(s): Z87.891 - Personal history of nicotine dependence Category: Medical Plan: Will obtain lung cancer screening CT chest. Orders: Orders CT lung screening Today Z87.891 - Personal history of nicotine dependence Medications: New azithromycin For 250 mg dose pack: take 500 mg today (day 1), then 250 mg for 4 days (days 2-5) PO 6 tabs 0RF Refilled prednisone 40 mg (2 x 20 mg) PO DAILY 5 days 10 tabs 0RF albuterol sulfate 90 mcg/actuation 2 inhalations inhalation Q4-6H 30 days PRN 1 ea 6RF shortness of breath Trelegy Ellipta 200-62.5-25 mcg (ijzpneajkbz-[id number]) 1 ea inhalation DAILY 60 ea 6RF NS J44.9 - Chronic obstructive pulmonary disease, unspecified Coding Level of Care Code Est Pt Level 4 (96184) Diagnoses Asthma-COPD overlap syndrome J44.9 Personal history of nicotine dependence Z87.891
--- OUTSIDE RECORDS SUMMARY | 2025-02-10 12:38 | XMS_ITS | Encounter Summary ---
Author Organization [employer] Address [address] [place] [address] Care Team Providers Care Veneer Matcher Name Role Phone Sabi Melgoza NP Primary Care Provider [phone] Reason for Visit * Reason Onset Date Comments Med Refill 02/09/2025 Encounter Details Date Type Department Care Team (Late st Contact Info) Description 02/09/2025 Refill [facility] [address] [place], [place] [id number] Sabi Melgoza NP [address] [place], [place] [id number] Social History Tobacco Use Types Packs/Day Years Used Date Smoking Tobacco: Former Cigarettes Q uit: 03/2019 Passive Smoke Exposure: Never Smokeless Tobacco: Never Comments:Quit 5 years ago Alcohol Use Standard Drinks/Week Comments Not Currently 0 (1 standard drink = 0.6 oz pur e alcohol) Depression Answer Date Recorded Patient Health Questionnaire-9 Score 0 08/18/2024 Patient Health Questionnaire-9 Score 0 08/18/2024 Last PHQ-9: Questionnaire Data Not on file 1 Housing Stability Answer Date Recorded What is your housing situation today? I have nani bautista 08/27/[address] you li ve. Do you have problems with any of the following? None of the above 08/27/2023 Food Insecurity Answer Date Recorded Within the past 12 months, y ou worried that your food would run out before you got money to buy more: Never True 08/27/2023 Within the past 12 months,th e food you bought just didn't last and you didn't have enough money to get more: Never True Transportation Answer Date Recorded In the past 12 months, has l ack of transportation kept you from medical appts, meetings, work or from getting things needed for daily living? No 08/27/2023 Utilities Answer Date Recorded In the past 12 months, has t he electric, gas, oil or water company threatened to shut off services in your home? No 08/27/2023 Depression Answer Date Recorded Patient Health Questionnaire-2 Score 0 08/18/2024 Internet Access Answer Date Recorded Internet Access Q1 Yes 12/25/2024 Internet Access Q2 Not on file 12/25/2024 Comments Unknown Sex and Gender Information Value Date Recorded Sex Assigned at Female 09/03/2022 10:15 AM EDT Legal Sex Female 10:15 AM EDT Gender Identity Female 09/03/2022 10:15 AM EDT Sexual Orientation Choose not to disclose 2021 10:15 AM EDT documented as of this encounter Miscellaneous Notes * Telephone Encounter - Estela Swartz LPN - 02/09/2025 1:15 PM EDT Last seen 02/01/25. documented in this encounter Plan of Treatment Upcoming Encounters Date Type Department Care Team (Late st Contact Info) Description 04/19/2025 9:30 AM EDT Office Visit [facility] [address] [place] [address] Sabi Melgoza NP [address] [place] [address] documented as of this encounter Visit Diagnoses Not on filedocumented in this encounter Additional Health Concerns Assessment Noted Time PHQ-9 Depression Total Score: 0 08/18/20 1:10 PM EDT documented as of this encounter Care Teams Veneer Matcher Relationship Specialty Start Date End Date Sabi Melgoza NP [address] [place] [address] PCP - General Family Medicine 07/03/24 documented as of this encounter
--- OUTSIDE RECORDS SUMMARY | 2025-02-10 12:38 | XMS_ITS | Encounter Summary ---
Author Organization [facility] Address [address] [place] [address] Care Team Providers Care Portable Sawyer Name Role Phone Kathi ChristopherP Primary Care Provider [phone] Sabi Melgoza NP Primary Care Provider [phone] Reason for Visit * Reason Comments Med Refill Encounter Details Date Type Department Care Team ([facility] Contact Info) Description 01/06/[address] [facility] [address] [place] [address] Kathi Christopher FNP [address] [place] [address] Social History Tobacco Use Types Packs/Day Years Used Date Smoking Tobacco: Former Cigarettes Q uit: 03/2019 Passive Smoke Exposure: Never Smokeless Tobacco: Never Comments:Quit 5 years ago Alcohol Use Standard Drinks/Week Comments Not Currently 0 (1 standard drink = 0.6 oz pur e alcohol) Depression Answer Date Recorded Patient Health Questionnaire-9 Score 14 10/18/2023 Patient Health Questionnaire-9 Score 14 10/18/2023 Last PHQ-9: Questionnaire Data Not on file 1 12/19/2022 Housing Stability Answer Date Recorded What is [...] enough money to get more: Never True 10/ Transportation Answer Date Recorded In the past [...] Answer Date Recorded Patient Health Questionnaire-2 Score 2 10/18/2023 Comments Unknown Sex and Gender Information Value Date Recorded Sex Assigned at Female 09/03/2022 10:15 AM EDT Legal Sex Female 10:15 AM EDT Gender Identity Female 09/03/2022 10:15 AM EDT Sexual Orientation Choose not to disclose 2021 10:15 AM EDT documented as of this encounter Plan of Treatment Upcoming Encounters Date Type Department Care Team (Late st Contact Info) Description 04/19/2025 9:30 AM EDT Office Visit [facility] [address] [place] [address] Sabi Melgoza NP [address] [place] [address] documented as of this encounter Visit Diagnoses Not on filedocumented in this encounter Additional Health Concerns Assessment Noted Time PHQ-9 Depression Total Score: 14 023 10:59 AM EST documented as of this encounter Care Teams Portable Sawyer Relationship Specialty Start Date End Date Kathi Christopher FNP [address] [place] [address] PCP - General Family Medicine 10/08/22 07/02/24 aSbi Melgoza NP [address] [place] [address] PCP - General Family Medicine 07/03/24 documented as of this encounter
--- OUTSIDE RECORDS SUMMARY | 2025-02-10 12:38 | XMS_ITS | Encounter Summary ---
Author Organization [employer] Address [address] [facility] [address] [place] [address] Care Team Providers Care Rpg Programmer Name Role Phone Kathi ChristopherP Primary Care Provider [phone] Sabi Melgoza NP Primary Care Provider [phone] Encounter Details Date Type Department Care Team (Late Contact Info) Description 04/18/2023 Abstract [facility] MEDICINE [address] [place] [address] Kathi Christopher FNP [address] [place] [address] Social History Tobacco Use Types Packs/Day Years Used Date Smoking Tobacco: Former Cigarettes Q uit: 03/2019 Passive Smoke Exposure: Never Smokeless Tobacco: Never Alcohol Use Standard Drinks/Week Comments Not Currently 0 (1 standard drink = 0.6 oz pur e alcohol) Depression Answer Date Recorded Patient Health Questionnaire-9 Score 10 11/23/2022 Depression Answer Date Recorded Patient Health Questionnaire-2 Score 2 11/23/2022 Comments Unknown Sex and Gender Information Value Date Recorded Sex Assigned at Female 09/03/2022 10:15 AM EDT Legal Sex Female 10:15 AM EDT Gender Identity Female 09/03/2022 10:15 AM EDT Sexual Orientation Choose not to disclose 2021 10:15 AM EDT COVID-19 Exposure Response Date Recorded In the last 10 days, have yo u been in contact with someone who was confirmed or suspected to have Coronavirus/COVID-19? No / Unsure 04/05/2023 12:33 PM EDT documented as of this encounter Plan of Treatment Upcoming Encounters Date Type Department Care Team (Late Contact Info) Description 04/19/2025 9:30 AM EDT Office Visit [facility] MEDICINE [address] [place] [address] Sabi Melgoza NP [address] [place] [address] documented as of this encounter Procedures Procedure Name Priority Date/Time Associated Diagnosis Comments COLONOSCOPY Routine 09/01/2015 9:14 AM EDT documented in this encounter Results * Colonoscopy (09/01/2015 9:14 AM EDT) Colonoscopy Normal Normal Narrative Vielka Covarrubias - 09/01/2015 9:14 AM EDT Recommended 10 year follow up ( [facility]) us Historical Provider HEALTH MAINTENANCE Edited Result - Final documented in this encounter Visit Diagnoses Not on filedocumented in this encounter Additional Health Concerns Assessment Noted Time PHQ-9 Depression Total Score: 10 023 9:31 AM EST documented as of this encounter Care Teams Rpg Programmer Relationship Specialty Start Date End Date Kathi Christopher FNP [address] [place] [address] PCP - General Family Medicine 10/08/22 07/02/24 Sabi Melgoza NP [address] [place] [address] PCP - General Family Medicine 07/03/24 documented as of this encounter
--- OUTSIDE RECORDS SUMMARY | 2025-02-10 12:38 | XMS_ITS | Encounter Summary ---
Author Organization [employer] Address [address] [facility] [address] [place] [address] Care Team Providers Care Supervisor Public Message Service Name Role Phone Sabi Melgoza KENDALL Primary Care Provider [phone] Reason for Visit * Reason Comments Med Refill Encounter Details Date Type Department Care Team ([facility] st Contact Info) Description 12/11/2024 Refill [facility] MEDICINE [address] [place], [place] [phone] Kathi Christopher FNP [address] [place], [place] [phone] Moderate persistent asthma with acute exacerbation Social History Tobacco Use Types Packs/Day Years [...] is your housing situation today? I have nanishmuel bautista 08/27/[address] you [...] Access Answer Date Recorded Internet Access Q1 No 08/18/2024 Internet Access Q2 Not on file 08/18/2024 Comments Unknown Sex and Gender Information Value [...] Description 04/19/2025 9:30 AM EDT Office Visit [facility] MEDICINE [address] [place] [address] Sabi Melgoza NP [address] [place] [address] documented as of this encounter Visit Diagnoses Diagnosis Moderate persistent asthma with acute exacerbation documented in this encounter Additional Health Concerns Assessment Noted Time PHQ-9 Depression Total Score: 0 08/18/20 24 1:10 PM EDT documented as of this encounter Care Teams Supervisor Public Message Service Relationship Specialty Start Date End Date Sabi Melgoza NP [address] [place] [address] PCP - General Family Medicine 07/03/24 documented as of this encounter
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
== END 2025-02-10 11:20 | disposition home or self-care (01) ==
LOC: HO.HPS 10:51
PROVIDERS: PCP Nurse Practitioner Family; Visit Provider Internal Medicine Pulmonary Disease
DX: J44.9 Chronic obstructive pulmonary disease, unspecified (principal); Z87.891 Personal history of nicotine dependence
CPT/HCPCS: 99214

== ENCOUNTER → 2025-02-10 10:51 | Outpatient (BNVA) | payer OTHER, SELFPAY | PROVIDERS: PCP Nurse Practitioner Family; Visit Provider Internal Medicine Pulmonary Disease | DX: J44.9 Chronic obstructive pulmonary disease, unspecified (principal); Z87.891 Personal history of nicotine dependence | CPT/HCPCS: 99212 ==

== ENCOUNTER 2025-03-05 10:15 | Outpatient (AMB) | payer OTHER, SELFPAY ==
--- NOTE | 2025-03-05 10:17 | MHC.OFFVIS ---
Vital Signs 03/05/25 10:18 Height 5 ft 3 in Weight 185 lb 3.013 oz BMI 32.8 BP 130/74 Blood Pressure Location Lt brachial Position Sitting Pulse 94 Pulse Source Pulse Oximeter Pulse Oximetry (%) 95 Oxygen Delivery Method Room Air Intake Visit Reasons: Follow up GERD Intake Note: Patient follow up for GERD with esophagitis. Application Release Manager Required: Yes Application Release Manager Language: Rangeland Management Specialist Name: Israel([phone]) Allergies No Known Allergies [No Known Allergies*] Allergy (Verified 03/05/25 10:23) HPI HPI Follow up GERD: Details: Assessment & Plan (1) GERD with esophagitis: Comment: 2022 biopsy on going chronic irritation. Code(s): K21.00 - Gastro-esophageal reflux disease with esophagitis, without bleeding Category: Medical (2) Irritable bowel syndrome with both constipation and diarrhea: Code(s): K58.2 - Mixed irritable bowel syndrome Category: Medical Plan Maltese #Red live Her GI regimen is to consist of famotidine 40 mg at bedtime, pantoprazole 40 mg in the morning, psyllium husk fiber, senna. She has not yet seen Dr. Posey to discuss if she should be on lasix for her pulmonary HTN. rov 6 mos Medications: Refilled sennosides (Senna Laxative) 17.2 mg (2 x 8.6 mg) PO BID 120 tabs 6RF K58.2 - Mixed irritable bowel syndrome pantoprazole 40 mg PO DAILY 30 tabs 6RF psyllium husk (Reguloid (psyllium husk)) 0.8 grams (2 x 0.4 gram) PO BID 60 caps 6RF K58.2 - Mixed irritable bowel syndrome famotidine (Pepcid) 40 mg PO BEDTIME 30 tabs 6R CORRESPONDENCE On 03/27/24 @ 11:32 Og Posey Wrote To Ciera Will get her a follow up to [facility]. On 03/27/24 @ 09:15 Karla Vang Wrote To Og Posey She has not been taking it, should it be refilled? On 03/26/24 @ 16:51 Og Posey Wrote To CieraFebruary Either she has not been taking it, or getting refills somewhere else. On 03/26/24 @ 15:38 Karla Vang Wrote To Og Posey I see this pt for GI, she is c/o general edema....you have prescribed lasix in the past but she has not had refills for about 6 mos (? pulm htn)...is she supposed to be on lasix? Please advise ? TODAY'S VISIT Maltese #[id number], Bob Her GI regimen is to consist of famotidine 40 mg at bedtime, pantoprazole 40 mg in the morning, psyllium husk fiber, senna. It seems magnus has been out of her acid reducing medication for a bit. She is reporting an globus sensation and dysphagia of both solids and liquids. In the past she had some improvement with dilation. Will get repeat EGD. Restarting pantopraozle qam snd famotidine qhs. Holding senna as she just started metformin and this is causing intermittent diarrhea. There are no prior problems with anesthesia or sedation. She has ANNE MARIE and COPD that are controlled and denies any cardiac problems. There are no infectious disease problems. Again she was dilated on EGD in 2021 and had improvement with her swallowing so we will request this again. ROV 6 weeks. PFSH Medical History Upper abdominal pain Pre-op examination Smoker Asthma exacerbation Marijuana use Alcohol abuse Pre-diabetes High cholesterol Hypertension Chronic sinusitis HLD (hyperlipidemia) Asthma Surgical History History of esophagogastroduodenoscopy (EGD) H/O colonoscopy Family History Brother Mouth cancer Social History Alcohol intake: former Patient Tobacco Use Status: Former Tobacco user service: No Current occupational status: disabled Review of Systems Const Denies fatigue, Denies fever(s), Denies night sweats, Denies poor appetite and Reports weight loss (Intentional dieting) ENT Reports Normal hearing present, Denies dental pain, Reports dysphagia, Denies hearing loss, Denies mouth pain, Denies odynophagia, Denies throat swelling, Denies tongue swelling and Reports other (Dentition adequate) Card Reports no additional complaints Resp Reports no additional complaints GI Details: Denies abdominal pain, Denies melena, Denies bloating, Denies hematochezia, Reports constipation, Denies GI cramping, Reports dysphagia, Denies excessive flatus, Denies early satiety, Reports heartburn, Reports diarrhea, Denies nausea, Denies odynophagia, Denies vomiting and Denies hematemesis Skin/Breast Denies pruritus, Denies lesions, Denies rash and Denies jaundice Neuro Reports Normal hearing present and Denies Abnormal speech present Endo Denies fatigue Aller/Immun Denies throat swelling and Denies tongue swelling Physical Exam Vital Signs: Last Vital Signs Pulse 94 03/05/25 10:18 BP 130/74 03/05/25 10:18 Pulse Ox 95 03/05/25 10:18 Oxygen Delivery Method Room Air 03/05/25 10:18 BMI result Body Mass Index 32.8 Const General: cooperative, no acute distress, well developed and well groomed Nutritional Appearance: well nourished, obese and overweight Orientation/consciousness: oriented to person, oriented to place and oriented to time Limitations: No language barrier, ambulation with cane, ambulation with walker and wheelchair HEENT Head: Yes normocephalic and Yes atraumatic Eyes General: appearance normal, both eyes and all related structures Pupils: Equal, round and reactive pupils present Neck Neck: Yes normal visual inspection and Yes no lymphadenopathy Thyroid: Thyroid normal Resp Effort & Inspection: normal respiratory effort and able to speak in complete sentences Auscultation: clear to auscultation bilaterally Cardio Rate: regular rate Rhythm: regular rhythm Heart sounds: Normal, physiologic split S2 sound present Peripheral pulses: radial pulses present and posterior tibial pulses present GI Inspection: No distended, Yes Abdominal panniculus present and Yes obesity Palpation (GI): Soft to palpation, nontender, no guarding, not rigid and No hepatosplenomegaly present Percussion: Yes normal to percussion Auscultation: normal bowel sounds Rectal Exam - Female: deferred Skin General skin exam: no rashes or lesions noted, turgor normal, skin not dry, no jaundice, No spider nevi and no striae Rashes: no rashes Nails: normal Neuro General: oriented to person, oriented to place and oriented to time Cranial nerves: Yes Equal, round and reactive pupils present and Yes Normal hearing present Speech: No Abnormal speech present Extrem General: Yes normal to inspection, No clubbing, No cyanosis and No edema Psych Appearance: grossly normal and well kempt Mental Status: mental status grossly normal Speech and movement: Normal speech and movement present Affect: normal affect Attitude: cooperative Thought process: Circumstantial thought process present and not confabulating Thought content: Normal thought content present Insight: Limited insight present (Psych) Judgement: Limited judgement present (Psych) Assessment & Plan Assessment & Plan (1) GERD with esophagitis: Comment: 2022 biopsy on going chronic irritation. Code(s): K21.00 - Gastro-esophageal reflux disease with esophagitis, without bleeding Category: Medical (2) Irritable bowel syndrome with both constipation and diarrhea: Code(s): K58.2 - Mixed irritable bowel syndrome Category: Medical (3) Gallstones: Code(s): K80.20 - Calculus of gallbladder without cholecystitis without obstruction Category: Medical (4) Dysphagia: Code(s): R13.10 - Dysphagia, unspecified Category: Medical (5) Pre-op examination: Code(s): Z01.818 - Encounter for other preprocedural examination Category: Medical Plan Maltese #[id number] Her GI regimen is to consist of famotidine 40 mg at bedtime, pantoprazole 40 mg in the morning, psyllium husk fiber, senna. It seems magnus has been out of her acid reducing medication for a bit. She is reporting an globus sensation and dysphagia of both solids and liquids. In the past she had some improvement with dilation. Will get repeat EGD. Restarting pantopraozle qam snd famotidine qhs. Holding senna as she just started metformin and this is causing intermittent diarrhea. There are no prior problems with anesthesia or sedation. She has ANNE MARIE and COPD that are controlled and denies any cardiac problems. There are no infectious disease problems. Again she was dilated on EGD in 2021 and had improvement with her swallowing so we will request this again. ROV 6 weeks. Orders: Orders Comprehensive Met. Panel Today Z01.818 - Encounter for other preprocedural examination Hemoglobin A1c Today Z01.818 - Encounter for other preprocedural examination EGD - GI Use Only Today R13.10 - Dysphagia, unspecified Complete Blood Count Auto Diff Today Z01.818 - Encounter for other preprocedural examination Medications: Refilled pantoprazole 40 mg PO DAILY 30 tabs 6RF famotidine (Pepcid) 40 mg PO BEDTIME 30 tabs 6RF K21.00 - Gastro-esophageal reflux disease with esophagitis, without bleeding On Hold sennosides (senna) Hold Comment: Doctor's Order 17.2 mg (2 x 8.6 mg) PO BID 120 tabs 6RF K58.2 - Mixed irritable bowel syndrome Coding Level of Care Code Est Pt Level 4 (18667) Diagnoses GERD with esophagitis K21.00 Irritable bowel syndrome with both constipation and diarrhea K58.2 Gallstones K80.20 Dysphagia R13.10 Pre-op examination Z01.818 Time Spent (min) 34
[2025-03-05 10:18] VITALS: BP 130/74; PULSE 94; O2SAT 95; BMI 32.8
== END 2025-03-05 11:05 | disposition home or self-care (01) ==
LOC: HO.HGI 10:15
PROVIDERS: PCP Nurse Practitioner Family; Visit Provider Nurse Practitioner
DX: K21.00 Gastro-esophageal reflux disease with esophagitis, without bleeding (principal); K58.2 Mixed irritable bowel syndrome; K80.20 Calculus of gallbladder without cholecystitis without obstruction; R13.10 Dysphagia, unspecified
CPT/HCPCS: 99214

== ENCOUNTER → 2025-03-05 10:15 | Outpatient (BNVA) | payer OTHER, SELFPAY | PROVIDERS: PCP Nurse Practitioner Family; Visit Provider Nurse Practitioner | DX: Z01.818 Encounter for other preprocedural examination (principal); K21.00 Gastro-esophageal reflux disease with esophagitis, without bleeding; K58.2 Mixed irritable bowel syndrome; K80.20 Calculus of gallbladder without cholecystitis without obstruction; R13.10 Dysphagia, unspecified | CPT/HCPCS: 99212 ==

== ENCOUNTER 2025-04-15 09:44 | Outpatient (REF) | payer OTHER, SELFPAY ==
--- NOTE | ~2025-04-15 | CT_ITS ---
CLINICAL HISTORY: Z87.891 - Personal history of nicotine dependence CT lung cancer screening (LDCT) Comparison: CT/[place]/SR - CT CHEST WO IV CON - 08/22/2023 01:34 PM EDT Technique: Axial CT images of the chest using low-dose technique. Referring provider counseled the patient on shared decision-making for LDCT screening. Additional counseling was provided on smoking cessation. Effective radiation dose total: DLP 54.4 mGycm, CTDIvol 1.7 mGy. Findings: Lung: No evidence of pneumonia or edema. Stable 4 mm left upper lobe nodule anterolaterally (image 58). No new pulmonary nodules. Coronary artery calcifications: Moderate Limited upper abdomen: Unremarkable Other: None Impression: 1. Coronary artery disease. 2. LungRADS 1: Negative exam. Continue annual screening with low dose Chest CT in 12 months. ##L1## Category 1: Normal; continue annual screening Category 2: Benign appearance or behavior, continue annual screening Category 3: Probably benign, [address] recommended Category 4A: Suspicious, [address] recommended; may consider PET/CT Category 4B: Suspicious, Additional diagnostics and/or tissue sampling recommended Category 4X: Suspicious, Additional diagnostics and/or tissue sampling recommended Category 0: Recalls (incomplete screen due to Incomplete coverage, Noise, Respiratory motion, Expiration, Obscured by acute abnormality) This document has been electronically signed by: Jaci Cardoza MD on 04/15/2025 21:11:01
== END 2025-04-15 09:45 | disposition home or self-care (01) ==
LOC: HO.CT 09:44
PROVIDERS: PCP Nurse Practitioner Family; Visit Provider Internal Medicine Pulmonary Disease
DX: Z12.2 Encounter for screening for malignant neoplasm of respiratory organs (principal); Z87.891 Personal history of nicotine dependence; K21.00 Gastro-esophageal reflux disease with esophagitis, without bleeding; K80.20 Calculus of gallbladder without cholecystitis without obstruction; K58.2 Mixed irritable bowel syndrome
CPT/HCPCS: 71271; 99212

== ENCOUNTER → 2025-04-15 09:46 | Outpatient (BNV) | payer OTHER, SELFPAY | PROVIDERS: PCP Nurse Practitioner Family; Visit Provider Radiology Diagnostic Radiology | DX: Z87.891 Personal history of nicotine dependence (principal) | CPT/HCPCS: 71271 ==

== ENCOUNTER 2025-04-15 10:05 | Outpatient (AMB) | payer OTHER, MEDICAID, SELFPAY ==
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
== END 2025-04-15 11:12 | disposition home or self-care (01) ==
PROVIDERS: PCP Nurse Practitioner Family; Visit Provider Nurse Practitioner
DX: K21.00 Gastro-esophageal reflux disease with esophagitis, without bleeding (principal); K58.2 Mixed irritable bowel syndrome; K80.20 Calculus of gallbladder without cholecystitis without obstruction
CPT/HCPCS: 99213

== ENCOUNTER 2025-08-12 10:34 | Outpatient (AMB) | payer OTHER, SELFPAY ==
[2025-08-12 10:41] VITALS: BP 117/70; PULSE 80; O2SAT 96; BMI 31.4
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
== END 2025-08-12 11:08 | disposition home or self-care (01) ==
LOC: HO.HPS 10:35
PROVIDERS: PCP Nurse Practitioner Family; Visit Provider Internal Medicine Pulmonary Disease
DX: R06.01 Orthopnea (principal); J44.9 Chronic obstructive pulmonary disease, unspecified; Z87.891 Personal history of nicotine dependence
CPT/HCPCS: 99214; G2211

== ENCOUNTER → 2025-08-12 10:34 | Outpatient (BNVA) | payer OTHER, SELFPAY | PROVIDERS: PCP Nurse Practitioner Family; Visit Provider Internal Medicine Pulmonary Disease | DX: J44.89 Other specified chronic obstructive pulmonary disease (principal); R06.01 Orthopnea; Z87.891 Personal history of nicotine dependence | CPT/HCPCS: 99212 ==